=== PATIENT | female | born 1935 | race Caucasian/White ===

== ENCOUNTER 2016-12-03 09:33 | Inpatient (IN) | payer MEDICARE ==
[2016-11-22 11:04] VITALS: BP 138/78
--- NOTE | 2016-11-28 11:29 | HPE ---
DATE OF ADMISSION: 12/03/2016 CHIEF COMPLAINT: Right knee pain and stiffness. HISTORY: Lizzy is a pleasant 81-year-old female with progressively worsening right knee pain and stiffness. She has failed to improve with conservative management. She has elected for surgery for her continued symptoms with weight bearing activities and activities of daily living. She has consented for a right total knee arthroplasty by Dr. Jacques. Medical optimization pending with Tiffany Rico and is not available for review today. CURRENT MEDICATIONS: - vitamin D3 2000 mg daily - Klor-Con m20, CR 20 daily - Coumadin 5 mg daily - vitamin C 500 mg daily - magnesium 250 mg daily - arthritis medication twice daily, not specified - levothyroxine 75 mcg daily ALLERGIES: PENICILLIN, AVELOX, CHEMOTHERAPY DRUGS, unspecified. MEDICAL HISTORY: History of pulmonary embolism. Hypothyroid. SURGICAL HISTORY: Bilateral cataracts. Total hysterectomy. Appendectomy. REVIEW OF SYSTEMS: Patient denies fevers, chills, nausea, vomiting or diarrhea. She denies chest pain, shortness of breath or cough. No recent upper respiratory or urinary tract infection symptoms but is, however, starting treatment for urinary tract infection. She does have pain in the right knee with weight bearing activities and activities of daily living. EXAMINATION: Well nourished, well developed female in no apparent distress. She does walk with a limp favoring the right side using a cane. Skin to the right knee is without erythema, edema or ecchymosis. She does have some tenderness along the bilateral joint lines. There is no hip irritability elicited with range of motion. Her calf is soft, nontender to palpation. Neck supple without lymphadenopathy or jugular venous distention (JVD). There are no carotid bruits noted. Lungs: Clear to auscultation bilaterally without rales or wheezes. Heart: Regular rate and rhythm. Abdomen: Bowel sounds are present. Abdomen is soft and nontender to palpation. VITAL SIGNS: Height 5 feet 3 inches, weight 172 pounds, temperature 98.5, blood pressure 115/70, heart rate 72. LABORATORY DATA: Chest x-ray is an essentially negative study. EKG shows sinus bradycardia with arrhythmia. Moderate intraventricular conduction delay. Complete blood count: WBC slightly elevated at 12.6. Red blood cell 4.17. Hemoglobin 13.1, hematocrit 39.7, platelet count slightly decreased at 103. Erythrocyte sedimentation rate 12. Prothrombin time slightly elevated at 21.4. INR 1.85. Urinalysis significant for only turbid appearance, 3+ leukocyte esterase, too numerous to count white blood cells, red blood cells 45 and 3+ bacteria. She does have a urine culture positive for Serratia marcescens and has been treated by her primary auto care center manager per protocol. Her nasal culture, normal yann present. Comprehensive metabolic profile: Fasting glucose 89, BUN slightly elevated at 19, creatinine slightly elevated at 1.06. Glomerular filtration rate 53.1. Sodium 142, potassium 4.2, chloride 104, carbon dioxide 31, anion gap slightly decreased at 7, calcium 8.8. AST slightly elevated at 39, ALT 62, alkaline phosphatase 81, total bilirubin 0.6, total protein slightly decreased at 6.0, albumin 3.8, albumin globulin ratio 1.73. DIAGNOSIS: Symptomatic osteoarthritis of the right knee. PLAN: Patient has consented for a right total knee arthroplasty by Dr. Jacques. She will continue her Levaquin for her urinary tract infection per her primary auto care center manager's recommendations. MICHELLE
[~2016-12-03] VITALS: Ht 160 cm; Wt 79.8 kg
[2016-12-03] VITALS (7 sets, daily range): BP systolic 116–179; BP diastolic 61–87
[~2016-12-03 09:33] MED LIST: /MOXI40TA; /WARF5TA; ACET650T2 PO; ACYC400T; BACT800T; CARA1TAB2 PO; COLA100C PO; COMPAZINE; COUM1TAB14 PO; COUM1TAB17 PO; COUM2.5T11 PO; DULC5TAB PO; FLOM5CAP PO; FLUC10TA; IMBR1CAP PO; K PHOS NEUTRAL PO; K-TA1TAB PO; LASI40TA PO; LEVA500T; LEVO100T7; LEVO75TA4 PO; LOPR50TA PO; MAGN250T9 PO; MICR10CA PO; MOM30SS PO; MYCOSTATIN TOP; PERC5TAB6 PO; POTA20TA PO; PROT1TAB2 PO; ROCE1INJ4 IV; Robitussin AC PO; SENO8.6T10 PO; TYLE325T5 PO; VITA-130 PO; VITA200016 PO; VITA200038 PO; VITMTA PO; WARF-18 PO; WARF-23 PO; XOPE1.252 INH; ZITHTAB PO; ZOFR4SOL PO; ZOVI200C; megace PO
[2016-12-03] MEDS ORDERED: LR 1,000 ML IV SCH ×2 (10:00→14:00)
[2016-12-03] MEDS ORDERED: VANCOMYCIN HCL 1,000 MG, VIAL MATE ADAPTER 1 EACH in D5W 250 ML IV ONE ×2 (10:15→22:00)
[2016-12-03] MEDS ORDERED: CLINDAMYCIN 600 MG in APPROPRIATE DILUENT 1 EA IV ONE (10:15)
[2016-12-03 10:16] LABS: INR 1.03
[2016-12-03] MEDS ORDERED: LOVE0.6I2 SC (10:19)
[2016-12-03] MEDS ORDERED: fentaNYL 100 MCG/2 ML INJECTION (J3010) As Ordered ONE ×3 (10:50→12:07)
[2016-12-03] MEDS ORDERED: MIDAZOLAM INJ 2 MG/2 ML VIAL (J2250) As Ordered ONE ×2 (10:50→12:07)
[2016-12-03] MEDS ORDERED: TRANEXAMIC ACID 100 MG/ML 10ML VIAL As Ordered ONE (10:54)
[2016-12-03] MEDS ORDERED: BUPIVACAINE HCL 0.5% 10 ML VIAL As Ordered ONE (10:55)
[2016-12-03] MEDS ORDERED: EPINEPHrine INJ 1 MG/ML 1ML VIAL/AMP As Ordered ONE (10:55)
[2016-12-03] MEDS ORDERED: CLINDAMYCIN INJ 900MG/6ML VIAL As Ordered ONE (10:55)
[2016-12-03] MEDS ORDERED: BUPIVACAINE HCL 0.25% 30 ML VIAL As Ordered ONE (10:55)
[2016-12-03] MEDS ORDERED: MIDAZOLAM INJ 2 MG/2 ML VIAL (J2250) IV PRN (11:45)
[2016-12-03] MEDS ORDERED: fentaNYL 100 MCG/2 ML INJECTION (J3010) IV PRN ×2 (11:45→14:00)
[2016-12-03] MEDS ORDERED: ETOMIDATE INJ 20MG/10ML VIAL As Ordered ONE (12:07)
[2016-12-03] MEDS ORDERED: ROCURONIUM BROMIDE 50 MG/5 ML VIAL As Ordered ONE (12:07)
[2016-12-03] MEDS ORDERED: LIDOCAINE PRES-FREE 2% 10ML AMP As Ordered ONE (12:07)
[2016-12-03] MEDS ORDERED: PROPOFOL 200 MG/20 ML VIAL As Ordered ONE ×2 (12:07→12:08)
[2016-12-03] MEDS ORDERED: LIDOCAINE 2% INJ 100 MG/5 ML SDV (FOR ANES.) As Ordered ONE (12:08)
[2016-12-03] MEDS ORDERED: fentaNYL 100 MCG/2 ML INJECTION (J3010) XX ONE (12:22)
[2016-12-03] MEDS ORDERED: EPINEPHrine INJ 1 MG/ML 1ML VIAL/AMP XX ONE (12:22)
[2016-12-03] MEDS ORDERED: CLINDAMYCIN INJ 900MG/6ML VIAL IR ONE (12:22)
[2016-12-03] MEDS ORDERED: TRANEXAMIC ACID 100 MG/ML 10ML VIAL XX ONE (12:22)
[2016-12-03] MEDS ORDERED: BUPIVACAINE HCL 0.5% 10 ML VIAL XX ONE (12:22)
[2016-12-03] MEDS ORDERED: BUPIVACAINE HCL 0.25% 30 ML VIAL XX ONE (12:22)
[2016-12-03] MEDS ORDERED: MORPHINE PCA 1MG/ML 100ML CADD As Ordered ONE (13:48)
[2016-12-03] MEDS ORDERED: NALOXONE INJ 0.4 MG/1 ML VIAL (J2310) IV PRN (14:00)
[2016-12-03] MEDS ORDERED: diphenhydrAMINE INJ 50MG/ML VIAL (J1200) IV PRN (14:00)
[2016-12-03] MEDS ORDERED: EPIDURAL/PCA KEYS XX PRN (14:00)
[2016-12-03] MEDS ORDERED: MORPHINE PCA 1MG/ML 100ML CADD IV PRN (14:00)
[2016-12-03] MEDS ORDERED: METOCLOPRAMIDE INJ 10MG/2ML VIAL (J2765) IV PRN (14:00)
[2016-12-03] MEDS ORDERED: PATIENT IS CURRENTLY ON AN ON-Q PAIN BUSTER PAIN RELIEF SYSTEM XX SCH (14:00)
[2016-12-03] MEDS ORDERED: ONDANSETRON 4MG/2ML VIAL (J2405) IV PRN ×2 (14:00)
[2016-12-03] MEDS ORDERED: NALBUPHINE HCL 10 MG/ML AMP (J2300) IV PRN (14:00)
[2016-12-03] MEDS ORDERED: PERCOCET 5MG/325MG TAB PO PRN (14:00)
[2016-12-03] MEDS ORDERED: ACETAMINOPHEN TAB 650MG DOSE (2X325MG) PO PRN (15:30)
[2016-12-03] MEDS ORDERED: FLEET ENEMA PR PRN (15:30)
[2016-12-03] MEDS: NS 0.45% 1,000 ML IV SCH (15:30)
--- NOTE | 2016-12-03 15:39 | HPEPDOC ---
Medical History and Physical Date of Admission Dec 03, 2016 at 09:33 History and Physical HOSPITALIST CONSULT NOTE Date of consult: 12/03/2016 Referring Provider: Dr. Jacques Reason for consult: Management of chronic medical issues HPI: 81-year-old female with history of pulmonary embolism, hypothyroidism, CLL , anxiety who underwent right total knee replacement with Dr. Jacques today. She is seen postoperatively in the recovery room. She states she feels well and has no complaints. When asked about the details of her prior PE, she states that she has only ever had one blood clot, and it occurred approximately 6 years ago. She states that the doctors did not tell her why this occurred, but she has been on Coumadin for ever since. Past medical history: History of pulmonary embolism, hypothyroidism, CLL, anxiety Past surgical history: Bilateral cataracts, total abdominal hysterectomy, appendectomy Family history: The patient denies any health problems in her family and states that everyone is healthy. Social history: The patient currently lives with her . She has never smoked and denies any drug use. Allergies: Doxycycline, mouse protein, moxifloxacin, Ofatumumab, rituximab, penicillins Review of systems: General: Negative for fever and chills Eyes:. Negative for vision changes and ocular discharge ENT: Negative for sore throat and nose bleed Cardiovascular: Negative for chest pain and palpitations Respiratory: Negative for cough and shortness of breath GI: Negative for nausea, vomiting, diarrhea, constipation Musculoskeletal: Negative for neck and back pain Skin: Negative for rash Neuro:. Negative for Headache, dizziness, numbness, tingling Psych: Negative for depression and suicidal ideation Endocrine: Negative for polyuria : Negative for dysuria Heme: Negative for bruising Home meds: See below Physical exam: Vital signs: Blood pressure 118/64, HR 78, temperature 97.8, O2 sat 97% on 2 L, RR 16 Gen.: awake, alert, no acute distress Eyes: Extraocular movements intact, normal sclera ENT: Moist mucous membranes Cardiovascular: RRR, no murmurs rubs or gallops Lungs: clear to auscultation bilaterally, no rales, rhonchi, or wheeze Abdomen: Soft, NT/ND, normal BS Extremities: No peripheral edema, intact pedal pulses bilaterally Neuro: alert and oriented 3, normal speech, no focal deficits Psych: Normal mood with congruent affect Labs and radiology: INR 1.03 Assessment and plan: 81-year-old female with history of pulmonary embolism, hypothyroidism, CLL, anxiety who underwent right total knee replacement with Dr. Jacques today. We have been consulted for medical management of chronic medical problems. 1. Right total knee repair placement: Management per her primary team 2. History of pulmonary embolism: The patient has been on Coumadin for this. I recommended that the Coumadin be resumed as soon as her surgical team feels is safe. We'll check daily INRs. 3. Hypothyroidism: Continue home Synthroid. 4. CLL: Continue home imbruvica. We do not have this on formulary, but the patient may take her home supply. DVT prophylaxis: As per primary team Thank you very much for this consultation. We'll continue to follow along with you. Dr. Christianson will assume her care tomorrow morning. Vital Signs see above Laboratory Data Labs 24H Laboratory Tests 2 12/03/16 09:58: Prothromb Time International Ratio 1.03, Prothrombin Time 13.6 Home Medications Scheduled Acetaminophen (Acetaminophen ER) 650 Mg Tab 2 TABS PO DAILY Ascorbic Acid (Vitamin C) 500 Mg Tab 500 MG PO QAM Base (Imbruvica) 140 Mg Cap 140 MG PO QAM Cholecalciferol (Vitamin D-3) 2,000 Unit Tab 4,000 UNIT PO QAM Enoxaparin (Lovenox) 80 Mg/0.8 Ml Syr 80 MG SC BID Levothyroxine Sodium (Synthroid) 75 Mcg Tab 75 MCG PO QAM Magnesium Oxide (Magnesium) 250 Mg Tab 250 MG PO DAILY Multivitamins *[facility] STOCKED* (Thera M Plus *[facility] STOCKED*) 1 Tab Tab 1 TAB PO QAM Potassium Chloride (Klor-Con M20) 20 Meq Tabcr 20 MEQ PO QAM Warfarin Sod (Warfarin Sodium) 5 Mg Tab 5 MG PO 2XW tues, thurs, sat, sun Warfarin Sod (Coumadin) 4 Mg Tab 4 MG PO 5XW Allergies Coded Allergies: Moxifloxacin (Unverified Allergy, Severe, shakes; anxiety, 11/22/16) Penicillins (Verified Allergy, Intermediate, HIVES, 02/28/13) Penicillins Cross Reactors (Verified Allergy, Intermediate, HIVES, 02/28/13) Doxycycline (Unverified Allergy, Unknown, 01/15/16) Mouse Protein (Unverified Allergy, Unknown, 01/15/16) Ofatumumab (Unverified Allergy, Unknown, 01/15/16) Rituximab (Unverified Allergy, Unknown, 01/15/16) CRYSTAL BREWER Dec 03, 2016 15:39
[2016-12-03] MEDS ORDERED: IMBR1CAP PO (16:10)
[2016-12-03] MEDS ORDERED: WARFARIN SOD 5 MG TAB PO SCH (17:00)
--- NOTE | 2016-12-03 19:10 | RO ---
DATE OF PROCEDURE: 12/03/2016 PREPROCEDURE DIAGNOSIS: Right valgus osteoarthritis. POSTPROCEDURE DIAGNOSIS: Right valgus osteoarthritis. PROCEDURE: Right total knee replacement. SURGEON: Jeremy Jacques MD CODE AND TEST CLERK: Isael Goldman ANESTHESIA: HISTORY: The patient is an 81-year-old female with increasing deformity and pain in her right knee. The patient presents for elective total knee replacement. The patient has a history of pulmonary embolus. She has been off her Coumadin and on Lovenox bridging for that. FINDINGS AT SURGERY: A #4 narrow posterior stabilized PFC knee, a #3 fixed bearing tibia with an 8 mm spacer, a 32 mm button. Tourniquet time 53 minutes. No intraoperative complications. Mr. Goldman assisted by manipulating the leg and retracting vital structures in order to expedite the surgery. PROCEDURE: After adequate spinal anesthesia, the patient received intravenous (IV) antibiotics. The Light catheter was placed. Right leg was prepped and draped. Tourniquet inflated to 300 mmHg. A straight anterior incision made. Median parapatellar arthrotomy. Minimal dissection around the medial collateral ligament. The intermedullary canal was opened and a 5 degree valgus 10 mm cut made by Mr. Goldman under my supervision. Then the rest of the femoral cuts were made by myself anterior cruciate ligaments (ACL), posterior cruciate ligament (PCL) were excised and the tibia was exposed. Once the tibial cut was made the posterior osteophytes were removed. The medial and lateral menisci were removed and sizing guides were utilized. Following this the femoral notch was cut. The femoral component was applied with good fit and then the tibial tray. Rotation was checked and marked. The tibial preparation was completed. The patella was prepared. No lateral release was needed. Then all trial components were removed. Mr. Goldman was excused to the back table mixed methacrylate under vacuum. Once he returned to the table, he retracted tissue so that the tibial component could be cemented. Excess cement was removed. The femoral component was applied. The plastic was installed. Knee placed in full extension and the patella was cemented. During the drying time the excess cement was removed. The area was thoroughly irrigated. TXA was placed in the wound for post-operative hemostasis then a catheter was threaded for the PainBuster for post-operative analgesia. The median parapatellar arthrotomy was closed with heavy PDS suture. Tenosynovium closed with #2-0 PDS, same for subcu and alfie for skin. The tourniquet was deflated. The PainBuster was primed with 10 mL of Marcaine with fentanyl. Then the dry dressing was applied. The patient transferred to recovery room breathing spontaneously having tolerated procedure well.
[2016-12-03] MEDS: **UNRESOLVED NON-FORMULARY MED ORDER XX SCH ×2 (21:51→22:21)
[2016-12-04] MEDS ORDERED: ENOXAPARIN 30 MG/0.3 ML SYR (J1650) SC ONE (01:00)
[2016-12-04] MEDS: NS 0.45% 1,000 ML IV SCH (01:31)
[2016-12-04 03:30] VITALS: BP 123/65
[2016-12-04 06:00] VITALS: BP 119/71
[2016-12-04] MEDS: LEVOTHYROXINE 0.075 MG TAB (75 MCG) PO SCH (06:07)
[2016-12-04 06:57] LABS: INR 1.11
[2016-12-04 07:07] LABS: DIFF SLIDE NUMBER 89; MEAN CORPUSCULAR HEMOGLOBIN 32.4 pg (27.0-33.0); MEAN CORPUSCULAR HGB CONC 33.8 g/dl (32.0-36.5); MEAN CORPUSCULAR VOLUME 95.9 fl (80.0-96.0); RED CELL DISTRIBUTION WIDTH 13.4 % (11.5-14.5)
[2016-12-04 07:11] LABS: ANION GAP 8 MEQ/L (8-16); BLOOD UREA NITROGEN 18 MG/DL (7-18); CALCIUM LEVEL 8.1 MG/DL (8.8-10.2); CARBON DIOXIDE LEVEL 25 MEQ/L (21-32); CHLORIDE LEVEL 102 MEQ/L (98-107); CREATININE FOR GFR 0.92 MG/DL (0.55-1.02); GLOMERULAR FILTRATION RATE > 60.0 (>32); GLUCOSE, FASTING 128 MG/DL (83-110); POTASSIUM SERUM 4.7 MEQ/L (3.5-5.1); SODIUM LEVEL 135 MEQ/L (136-145)
[2016-12-04 07:22] LABS: PLATELET COUNT, AUTOMATED 98 k/mm3 (150-450); WHITE BLOOD COUNT 27.7 K/mm3 (4.0-10.0)
[2016-12-04 07:33] LABS: BANDS 3 % (< 11)
[2016-12-04 07:34] LABS: SMUDGE CELLS 2+
[2016-12-04] MEDS ORDERED: NON-FORMULARY 1 EA EA PO SCH (09:00)
[2016-12-04] MEDS ORDERED: dexameTHASONE 10 MG/1 ML VIAL PRES.FREE (J1100) ONE (09:07)
[2016-12-04] MEDS ORDERED: ROPIvacaine 0.5% 30 ML INJECTION (J2795) ONE (09:07)
[2016-12-04] MEDS ORDERED: LIDOCAINE 1% MDV 20ML VIAL ONE (09:07)
--- NOTE | 2016-12-04 09:18 | REP ---
Clinical: Status post arthroplasty. Technique: AP and cross-table lateral views. Findings: The patient is status post right knee replacement with normal positioning and appearance to the femoral and tibial components. Overlying postsurgical changes appreciated. Impression: Satisfactory right knee replacement radiographs. Signed by Gareth Moore MD 12/04/2016 09:10 A
[2016-12-04] MEDS: MOM 30ML SUSPENSION UDC PO SCH (09:40)
[2016-12-04] MEDS: MIRALAX *UNIT DOSE* 17GM PACKET PO SCH (09:40)
[2016-12-04] MEDS: SENOKOT S TAB PO SCH ×2 (09:40→20:06)
[2016-12-04] MEDS: PERCOCET 5MG/325MG TAB PO PRN ×4 (09:41→20:07)
[2016-12-04 10:00] VITALS: BP 122/58
[2016-12-04 14:00] VITALS: BP 116/57
[2016-12-04] MEDS: ONDANSETRON 4 MG TAB (S0181) PO PRN (14:31)
[2016-12-04 16:02] LABS: REASON FOR REVIEW COMPREHENSIVE REVIEW
[2016-12-04] MEDS ORDERED: WARFARIN SOD 5 MG TAB PO ONE (17:00)
[2016-12-04 18:00] VITALS: BP 124/72
[2016-12-04 22:00] VITALS: BP 110/53
[2016-12-04] MEDS: **UNRESOLVED NON-FORMULARY MED ORDER XX SCH (23:04)
[2016-12-05] MEDS: PERCOCET 5MG/325MG TAB PO PRN ×4 (03:46→18:22)
[2016-12-05] MEDS: LEVOTHYROXINE 0.075 MG TAB (75 MCG) PO SCH (05:52)
[2016-12-05 06:00] VITALS: BP 129/61
[2016-12-05 07:05] LABS: INR 1.45
[2016-12-05 07:08] LABS: DIFF SLIDE NUMBER 49; MEAN CORPUSCULAR HGB CONC 33.8 g/dl (32.0-36.5); MEAN CORPUSCULAR VOLUME 94.5 fl (80.0-96.0); RED CELL DISTRIBUTION WIDTH 13.7 % (11.5-14.5); WHITE BLOOD COUNT 11.5 K/mm3 (4.0-10.0)
[2016-12-05 07:09] LABS: PLATELET COUNT, AUTOMATED 71 k/mm3 (150-450)
[2016-12-05 07:20] LABS: CALCIUM LEVEL 7.9 MG/DL (8.8-10.2); CREATININE FOR GFR 1.13 MG/DL (0.55-1.02); GLOMERULAR FILTRATION RATE 49.3 (>32); MAGNESIUM LEVEL 2.2 MG/DL (1.8-2.4); POTASSIUM SERUM 4.1 MEQ/L (3.5-5.1)
[2016-12-05 07:36] LABS: BANDS 1 % (< 11); EOSINOPHILS 2 % (0-5)
[2016-12-05 07:38] LABS: SMUDGE CELLS 2+
[2016-12-05] MEDS: MOM 30ML SUSPENSION UDC PO SCH (08:42)
[2016-12-05] MEDS: SENOKOT S TAB PO SCH ×2 (08:43→20:29)
[2016-12-05] MEDS: ONDANSETRON 4 MG TAB (S0181) PO PRN (08:43)
[2016-12-05] MEDS: MIRALAX *UNIT DOSE* 17GM PACKET PO SCH (08:43)
[2016-12-05 14:00] VITALS: BP 122/68
[2016-12-05] MEDS ORDERED: WARFARIN SOD 7.5 MG TAB PO ONE (17:00)
[2016-12-05 22:00] VITALS: BP 130/60
[2016-12-05] MEDS: **UNRESOLVED NON-FORMULARY MED ORDER XX SCH (23:13)
[2016-12-06] MEDS: PERCOCET 5MG/325MG TAB PO PRN ×4 (00:17→15:16)
[2016-12-06 06:00] VITALS: BP 150/65
[2016-12-06] MEDS: LEVOTHYROXINE 0.075 MG TAB (75 MCG) PO SCH (06:18)
[2016-12-06 06:50] LABS: INR 1.68
[2016-12-06 06:55] LABS: DIFF SLIDE NUMBER 51; MEAN CORPUSCULAR HEMOGLOBIN 31.2 pg (27.0-33.0); MEAN CORPUSCULAR HGB CONC 32.7 g/dl (32.0-36.5); MEAN CORPUSCULAR VOLUME 95.3 fl (80.0-96.0); RED CELL DISTRIBUTION WIDTH 14.7 % (11.5-14.5)
[2016-12-06 06:59] LABS: PLATELET COUNT, AUTOMATED 89 k/mm3 (150-450); WHITE BLOOD COUNT 16.4 K/mm3 (4.0-10.0)
[2016-12-06 07:04] LABS: CALCIUM LEVEL 8.3 MG/DL (8.8-10.2); CREATININE FOR GFR 1.05 MG/DL (0.55-1.02); GLOMERULAR FILTRATION RATE 53.7 (>32); MAGNESIUM LEVEL 2.3 MG/DL (1.8-2.4); POTASSIUM SERUM 4.6 MEQ/L (3.5-5.1)
[2016-12-06 07:16] LABS: EOSINOPHILS 2 % (0-5)
[2016-12-06] MEDS ORDERED: MAGNESIUM CITRATE 300 ML BTL PO ONE (07:30)
[2016-12-06] MEDS ORDERED: PERC5TAB6 PO (08:27)
[2016-12-06] MEDS ORDERED: MAGNESIUM CITRATE 300 ML BTL PO PRN (10:00)
[2016-12-06] MEDS: SENOKOT S TAB PO SCH (10:19)
[2016-12-06] MEDS: MIRALAX *UNIT DOSE* 17GM PACKET PO SCH (10:20)
[2016-12-06] MEDS: MOM 30ML SUSPENSION UDC PO SCH (10:20)
== END 2016-12-06 15:35 | disposition home health service (06) | DRG 470 ==
LOC: M OR 09:33 → M MS5PR 14:45
PROVIDERS: ADMIT Orthopaedic Surgery; ATTEND Orthopaedic Surgery
PROC: 0SRC0J9 Replacement of Right Knee Joint with Synthetic Substitute, Cemented, Open Approach (ICD-10-PCS; principal; 2016-12-03 11:00)
DX: M17.11 Unilateral primary osteoarthritis, right knee (principal); C91.10 Chronic lymphocytic leukemia of B-cell type not having achieved remission; Z88.0 Allergy status to penicillin; E03.9 Hypothyroidism, unspecified; Z86.711 Personal history of pulmonary embolism; Z79.899 Other long term (current) drug therapy; Z79.01 Long term (current) use of anticoagulants; Z88.8 Allergy status to other drugs, medicaments and biological substances

== ENCOUNTER → 2016-12-10 | Outpatient (REF) | payer MEDICARE ==
[~2016-12-10] MED LIST changes: +LOPR1TAB6 PO; -LOPR50TA PO; +LOVE0.6I2 SC; +OXYC1TAB23 PO
[2016-12-10 15:05] LABS: INR 2.84
== END ==
LOC: M SHH 14:19
PROVIDERS: ATTEND Orthopaedic Surgery
DX: Z01.818 Encounter for other preprocedural examination (principal); M17.11 Unilateral primary osteoarthritis, right knee; Z79.01 Long term (current) use of anticoagulants

== ENCOUNTER 2016-12-12 11:13 | Inpatient (IN) | payer MEDICARE ==
[~2016-12-12] VITALS: Ht 157.5 cm; Wt 82.5 kg
[~2016-12-12 11:13] MED LIST changes: -OXYC1TAB23 PO
[2016-12-12] MEDS ORDERED: ONDANSETRON 4MG/2ML VIAL (J2405) As Ordered ONE (12:12)
[2016-12-12] MEDS ORDERED: MORPHINE 4 MG/ML 1ML SYRINGE As Ordered ONE (12:12)
[2016-12-12 12:16] LABS: DIFF SLIDE NUMBER 226; MEAN CORPUSCULAR HEMOGLOBIN 30.4 pg (27.0-33.0); MEAN CORPUSCULAR HGB CONC 31.7 g/dl (32.0-36.5); MEAN CORPUSCULAR VOLUME 95.9 fl (80.0-96.0); PLATELET COUNT, AUTOMATED 251 k/mm3 (150-450); RED CELL DISTRIBUTION WIDTH 16.1 % (11.5-14.5)
[2016-12-12 12:22] LABS: INR 3.51
[2016-12-12 12:29] LABS: WHITE BLOOD COUNT 45.3 K/mm3 (4.0-10.0)
[2016-12-12 12:33] LABS: CREATININE FOR GFR 1.26 MG/DL (0.55-1.02); GLOMERULAR FILTRATION RATE 43.5 (>32); POTASSIUM SERUM 5.1 MEQ/L (3.5-5.1)
[2016-12-12 12:40] LABS: BANDS 5 % (< 11); EOSINOPHILS 4 % (0-5); POIKILOCYTOSIS 1+; POLYCHROMASIA 1+
[2016-12-12 12:41] LABS: SMUDGE CELLS 2+
[2016-12-12 12:57] LABS: ERYTHROCYTE SEDIMENTATION RATE 51 mm/hr (0-30)
--- NOTE | 2016-12-12 13:50 | REP ---
RIGHT LOWER EXTREMITY DUPLEX VENOUS ULTRASOUND: HISTORY: Patient status post right knee replacement surgery 9 days ago with deformity and swelling. Question venous thrombosis. FINDINGS: There is occlusive thrombosis of the right popliteal vein with echogenic material and lack of compressibility and lack of Doppler flow. The femoral vein and common femoral vein and greater saphenous vein segments are anechoic and compressible and appear patent. There is a fluid collection in the distal five posteriorly measuring 10.7 x 2.8 x 6.4 cm. This is posterior to the distal femur. IMPRESSION: 1. There is occlusive deep venous thrombosis involving the right popliteal vein. 2. There is a 10 cm fluid collection above the level of the knee and posterior to the distal femur consistent with hematoma. Signed by Caden Steel MD 12/12/2016 08:12 P
[2016-12-12] MEDS ORDERED: OXYC1TAB23 PO (14:13)
--- NOTE | 2016-12-12 14:20 | HPEPDOC ---
Medical History and Physical Date of Admission 12/12/16 History and Physical ATTENDING: Dr. Hoover PCP: Dr Torres CC: RLE edema and pain HPI: 81yoF with a past medical history significant for CLL, PE, hypothyroid, who is S/P Rt TKA 12/03/16 who states she has been developing increasing pain and edema in the RLE from the thigh to the foot since Saturday. Today she called EMS related to increasing pain and edema amd came to ED for evaluation. Denies any fevers, chills, weakness, fatigue, AGUILAR, CP, SOB, cough, palpitations, abdominal pain, N/V/D or changes in bowel or bladder habits. Upon presentation to the hospital the patient was found to have popliteal vein DVT and hematoma at level of the knee, thus the hospitalist team was consulted. PMHx: PE- on coumadin anticoagulation managed as per PCP- off Lovenox Saturday12/10/16 CLL- managed as per Dr Karimi [facility] Hypothyroidism hypokalemia hypomagnesemia PSHX: hysterectomy appendectomy B/L cataract Rt TKA- 12/03/16 SOCHX: Resides in: [place] Marital Status: Kids: 2 Employment: Retired [employer] Tobacco use: denies ETOH: denies Illicit Drugs: Denies Recent travel: denies Advanced directives: none FAMHX: Mother: CAD Father: Unknown Siblings: son related to Fall, dtr unknown. Unexpected deaths due to medical reasons: None. ROS: As noted in HPI, otherwise 11pt ROS of systems reviewed and unremarkable PE: GEN: 81yoF, appears stated age. Well-nourished, well developed. No acute distress. Alert and oriented x 3. Pleasant, interactive. HEENT: Normocephalic, atraumatic. Pupils are equal, round, and reactive to light. Extraocular movements are intact. No nystagmus appreciated. Sclera are nonicteric. Conjunctiva without injection. Nose midline. Nasal turbinates without bogginess. EACs both patent BL. TMs both visualized and lam with good cone of light, no bulging or erythema. No facial asymmetry. Moist mucous membranes. Dentition fair. Pharynx pink and moist, no cobblestoning. Neck supple , trachea midline. No lymphadenopathy or thyromegaly appreciated. CHEST: Regular rate and rhythm, +S1, +S2 LUNGS: Clear to auscultation bilaterally. No wheezes, rales, or rhonchi. Breathing appears symmetric and easy. Patient is speaking in full sentences. No accessory muscle use. ABD: Round, soft, non-tender, non-distended. +Bowel sounds throughout. No rebound or guarding. No costovertebral angle tenderness. EXT: Pulses 2+ bilaterally dorsalis pedis and radial. RLE with small surgical dressing intact. Diffuse edema present from thigh to pedal area. Mild TTP. SKIN: Bland, dry, warm. Capillary refill <2sec. No rashes. NEURO: Alert and oriented x 3. Cranial nerves III-XII are intact. No focal deficits appreciated. CXR: pending LE U/S 1. There is occlusive deep venous thrombosis involving the right popliteal vein. 2. There is a 10 cm fluid collection above the level of the knee and posterior to the distal femur consistent with hematoma. A&P: 81yoF with a past medical history significant for CLL, PE, hypothyroid, who is S/P Rt TKA 12/03/16 who states she has been developing increasing pain and edema in the RLE from the thigh to the foot since Saturday. Today she called EMS related to increasing pain and edema amd came to ED for evaluation. The patient will be admitted to PCU for at least [address] Hoover's service. Pt is discussed with Dr Amado. 1. RLE DVT. INR currently supra therapeutic. Monitor daily INR. 2. RLE Hematoma. Monitor. Dr Jacques to follow. Coumadin on hold. 3. S/P Rt TKA. Dr Jacques consulted and is aware, will follow. 4. CLL. Follows with Dr Karimi at [facility]. Monitor CBCd. 5. H/O PE. INR is currently supra therapeutic. Hold Coumadin for now, recheck INR in AM. 6. Hypothyroidism . Cont supplement. 7. Hypokalemia. Po supplement on hold, K 5.1. Recheck in AM. 8. Hypomagnesemia. PO supplement. Check Mag level. DVT prophylaxis. INR is currently supra therapeutic. The patient is a Full Code. Vital Signs 152/66 76 18 98.5 96RA Laboratory Data Labs 24H Laboratory Tests 2 12/12/16 12:06: Activated Partial Thromboplast Time 34.3, Anion Gap 11, Atypical Lymphocytes 12H , Band Neutrophils 5, C-Reactive Protein, Quantitative 3.13H, Blood Urea Nitrogen 28H, Creatinine 1.26H, Sodium Level 132L, Potassium Level 5.1, Chloride Level 98, Carbon Dioxide Level 23, Calcium Level 8.0L, Eosinophils ( Manual) 4, Erythrocyte Sedimentation Rate 51H, Glomerular Filtration Rate 43.5, Lymphocytes (Manual) 36, Metamyelocytes 2H, Myelocytes 6H, Neutrophils 35, Platelet Estimate NORMAL, Poikilocytosis 1+, Polychromasia 1+, Prothromb Time International Ratio 3.51, Prothrombin Time 35.2H, Smudge Cells 2+ CBC/BMP Laboratory Tests 12/12/16 12:06 Calcium Level 8.0 L, Red Blood Count 2.48 L, Mean Corpuscular Volume 95.9, Mean Corpuscular Hemoglobin 30.4, Mean Corpuscular Hemoglobin Concent 31.7 L, Red Cell Distribution Width 16.1 H Home Medications Scheduled Ascorbic Acid (Vitamin C) 500 Mg Tab 500 MG PO DAILY Base (Imbruvica) 140 Mg Cap 140 MG PO DAILY OFF UNTIL 12/15/16 Cholecalciferol (Vitamin D-3) 2,000 Unit Tab 4,000 UNIT PO DAILY Levothyroxine Sodium (Synthroid) 75 Mcg Tab 75 MCG PO DAILY Magnesium Oxide (Magnesium) 250 Mg Tab 250 MG PO DAILY Multivitamins *[facility] STOCKED* (Thera M Plus *[facility] STOCKED*) 1 Tab Tab 1 TAB PO DAILY Potassium Chloride (Klor-Con M20) 20 Meq Tabcr 20 MEQ PO DAILY Warfarin Sod (Warfarin Sodium) 5 Mg Tab 5 MG PO 2XW QPM: & SAT Warfarin Sod (Coumadin) 4 Mg Tab 4 MG PO 5XW QPM: SUN, MON, , SAT, SAT Scheduled PRN Oxycodone/Acetaminophen (Oxycodone/Acetaminophen 5-325 mg) 1 Tab Tab 2 TAB PO Q6H PRN PRN PAIN Allergies Coded Allergies: Moxifloxacin (Unverified Allergy, Severe, shakes; anxiety, 11/22/16) Penicillins (Verified Allergy, Intermediate, HIVES, 02/28/13) Penicillins Cross Reactors (Verified Allergy, Intermediate, HIVES, 02/28/13) Doxycycline (Unverified Allergy, Unknown, 01/15/16) Mouse Protein (Unverified Allergy, Unknown, 01/15/16) Ofatumumab (Unverified Allergy, Unknown, 01/15/16) Rituximab (Unverified Allergy, Unknown, 01/15/16) Rocío Hua Dec 12, 2016 14:20
[2016-12-12] MEDS ORDERED: ACETAMINOPHEN TAB 650MG DOSE (2X325MG) PO PRN (14:30)
[2016-12-12] MEDS ORDERED: ONDANSETRON 4MG/2ML VIAL (J2405) IV PRN (14:30)
[2016-12-12 14:54] LABS: MAGNESIUM LEVEL 2.7 MG/DL (1.8-2.4)
--- NOTE | 2016-12-12 15:06 | REP ---
AP PORTABLE CHEST: 12/12/2016 Re-dictation. COMPARISON: Comparison made with prior chest radiograph 11/22/2016, CT chest, 01/15/2016, chest radiograph 08/26/2014. The cardiac silhouette is of size. There is minor tortuosity within the thoracic aorta. Fibrotic scarring and bronchiectatic changes are seen within the right lower lobe. Small spiculated density in right lower lung field represent interval change, most compatible with atelectasis or scarring. The left lung is clear. Bones and soft tissues within normal limits. IMPRESSION: Right basilar fibrotic scarring and mild bronchiectatic changes. Additionally, small spiculated density in the right lower lung field is noted, for which short interval followup chest radiograph is recommended to insure resolution or CT of the chest which can be performed without contrast. Case discussed with Dr. Cameron in ED on 12/12/16. MICHELLE
[2016-12-12] MEDS ORDERED: PERCOCET 5MG/325MG TAB As Ordered ONE (15:39)
--- NOTE | 2016-12-12 15:43 | EDDOCDS ---
Nurse's Notes [facility] Name: Lizzy Bray Age: 81 yrs Sex: Female : 1935 Arrival Date: 12/12/2016 Time: 11:13 Bed 6 Private MD: Tiffany Muñiz ANP Diagnosis: Acute embolism and thrombosis of other specified deep vein of right lower extremity;Postprocedural hemorrhage and hematoma of a musculoskeletal structure following a musculoskeletal system procedure;Chronic leukemia of unspecified cell type Presentation: 12/12 11:17 Presenting complaint: EMS states: Dr. Jacques did right knee arthroplasty 12/03/16-- ttb severe pain and swelling. No ROM d/t pain and swelling. Apt today at 1300. Pain increased last night -- pain was under control until then. Working with PT when pain started to increase. No injury noted. Adult Sepsis Screening: The patient does not have new or worsening altered mentation. Patient's respiratory rate is less than 22. Systolic blood pressure is greater than 100. Patient has a qSOFA score of 0- Negative Sepsis Screen. Suicide/Homicide risk assessment- the patient denies having any suicidal and/or homicidal ideations and does not present with any other emotional, behavioral or mental health complaints. Status: Patient is not a service desk lead or dependent. Transition of care: patient was not received from another setting of care. 11:17 Acuity: MAGO Level 3 ttb 11:17 Method Of Arrival: Ambulance ttb Triage Assessment: 11:30 General: Appears distressed, obese, uncomfortable, well nourished, well groomed, ttb Behavior is anxious, appropriate for age, cooperative, pleasant, restless. Pain: Location: right knee 10/10. Neurological: Level of Consciousness is awake, alert. Cardiovascular: Chest pain is denied. Respiratory: No deficits noted. Airway is patent Denies cough, shortness of breath. GI: Denies nausea, vomiting, pain. Derm: Skin is normal. Musculoskeletal: Range of motion limited in right knee Swelling present in lateral aspect of right knee, posterior aspect of right knee, medial aspect of right knee and right knee. Injury Description: surgery to right knee, no fall noted at home, just doing prescribed physical therapy. Historical: - Allergies: rotuxin; PENICILLINS; ofatumumab; Doxycycline; chemo drugs; Avelox; - Home Meds: 1. Imbruvica 140 mg oral cap once daily off until 12/15/16 2. Klor-Con M20 20 mEq Oral TbTQ 1 tab once daily (Last dose: 12/12/2016 07:00) 3. levothyroxine 75 mcg Oral cap 1 cap once daily (Last dose: 12/12/2016 07:00) 4. Vitamin D Oral 2000 unit twice a day (Last dose: 12/12/2016 07:00) 5. warfarin 4 mg oral tab 1 tab once daily 5mg , Saturday : 4mg every other day. (Last dose: 12/11/2016 18:00) 6. Percocet 5-325 mg Oral tab 2 tabs every 4 hours for Pain (Last dose: 12/12/2016 08:00) 7. Vitamin C Unknown oral daily (Last dose: 12/12/2016 07:00) 8. Magnesium Oxide Oral daily (Last dose: 12/12/2016 07:00) - PMHx: Leukemia; Hypothyroidism; - PSHx: Hysterectomy; Appendectomy; Cataract Surgery- Bilateral; right knee arthroplasy; - The history from nurses notes was reviewed: and I agree with what is documented. - Social history: Smoking status: Patient states was never smoker of tobacco. Patient/guardian denies using alcohol, street drugs, No barriers to communication noted, The patient speaks fluent Welsh, Speaks appropriately for age. - Family history: Not pertinent. - : The pt / caregiver states he / she is on anticoagulants: coumadin. Home medication list is obtained from the patient. - Hospitalizations: : No recent hospitalization is reported. - Exposure Risk Screening:: None identified. - Immunization history:: All immunizations up-to-date. - Social history:: the patient is a non-smoker, the patient does not drink alcohol. Screenin:37 Screening information is obtained from the patient. Fall risk: At risk due to gait ttb disturbance, The following interventions are performed due to a positive Fall Risk Screen: Fall Risk is added to Special Handling on the patient Summary Screen. A Fall Risk Bracelet was applied to the patient. Side Rails are placed in the up position. A Call Gonzalez is given with instruction to call for help when getting out of bed. Assistance ADL's: Requires assistance with housework, assistance is provided by family members. Abuse/DV Screen: The patient / caregiver reports he/she is: not in a situation that causes fear, pain or injury. Nutritional screening: No deficits noted. Advance Directives: Currently, there is no health care proxy. home support is adequate. Assessment: 11:37 General: see triage assessment. Pt given ice and positioned for comfort. Awaiting MD.. ttb 12:00 Reassessment: Patient appears in no apparent distress at this time. Patient states ttb feeling better. Patient states symptoms have improved. pt states she is more comfortable now. Awaiting US.. 12:40 Reassessment: Patient appears in no apparent distress at this time. Patient states ttb feeling better. Patient states symptoms have improved. meds given. Pt taken to US. at bedside. Pain improved since arrival. NAD noted.. 13:00 General: pt returned from US. Resting on stretcher. NAD noted.. ttb 13:03 Adult Sepsis Screening: The patient does not have new or worsening altered mentation. ttb Patient's respiratory rate is less than 22. Systolic blood pressure is greater than 100. Patient has a qSOFA score of 0- Negative Sepsis Screen. 14:00 General: Appears in no apparent distress, comfortable, Behavior is appropriate for age, ttb cooperative, pleasant. Pain: Location: right knee. Respiratory: Airway is patent Respiratory effort is even, unlabored, Denies cough, shortness of breath. Derm: Skin is normal, pale. 15:00 Reassessment: Patient appears in no apparent distress at this time. Patient states ttb feeling better. Patient states symptoms have improved. pt resting on stretcher awaiting transfer to room. at bedside.. General: Appears in no apparent distress, comfortable. Neurological: Level of Consciousness is awake, alert. Cardiovascular: Chest pain is denied. Respiratory: No deficits noted. Airway is patent Respiratory effort is even, unlabored, Denies cough, shortness of breath. Derm: Skin is normal, pale. 15:00 Adult Sepsis Screening: The patient does not have new or worsening altered mentation. ttb Patient's respiratory rate is less than 22. Systolic blood pressure is greater than 100. Patient has a qSOFA score of 0- Negative Sepsis Screen. 15:31 General: floor states they need 10 min and will accept pt.. ttb 15:34 General: Appears in no apparent distress, comfortable. Neurological: Level of ttb Consciousness is awake, alert. Cardiovascular: Chest pain is denied. Respiratory: Airway is patent Respiratory effort is even, unlabored, Denies cough, shortness of breath. GI: Denies nausea, vomiting. Derm: Skin is normal. 15:42 General: pt given pain meds per admission orders with crackers. Ice to right knee. ttb at bedside. Pt transported to floor at this time. . Vital Signs: 11:25 BP 169 / 74; Pulse 82; Resp 20; Pulse Ox 99% on R/A; Weight 78.02 kg; Height 5 ft. 2 ttb in. (157.48 cm) (M); Pain 10/10; 12:03 Temp 98.5(O); jlf 13:00 BP 152 / 66 (auto/); ttb 13:01 Pulse 76 MON; Resp 18 S; Pulse Ox 96% on R/A; Pain 6/10; ttb 15:14 BP 134 / 62; Pulse 78; Resp 18; Temp 98.6(O); Pulse Ox 95% on R/A; Pain 5/10; mcp 11:25 Body Mass Index 31.46 (78.02 kg, 157.48 cm) ttb Vitals: 11:25 Log In Time N/A - ambulance arrival. ttb ED Course: 11:15 Patient visited by Tiffany Parikh, Tower Equipment Installer. lbd 11:15 Tiffany Muñiz is Private Physician. lbd 11:15 Patient moved to Waiting lbd 11:16 Nida Monterroso,MAGGIE is Primary Nurse. lbd 11:16 Patient moved to 6 lbd 11:20 Triage Initiated ttb 11:32 Patient visited by Carmen Templeton RN. ttb 11:35 Gregory Cameron MD is Attending Physician. pc 11:37 The patient / caregiver is instructed regarding the plan of care and ED course. Patient ttb has correct armband on for positive identification. Placed in gown. Bed in low position. Call light in reach. Side rails up X2. Pulse ox on. 11:37 Patient's right legelevated and ice pack applied. ttb 11:39 Patient visited by Carmen Templeton RN. ttb 11:59 Patient visited by Gregory Cameron MD. pc 12:02 Patient visited by Patricia Dave PCA. jlf 12:03 Patient visited by Patricia Dave PCA. jlf 12:07 C Reactive Protein Sent. ttb 12:07 ESR Sent. ttb 12:07 Pt & Aptt Sent. ttb 12:07 MED Profile Sent. ttb 12:07 CBC with Diff Sent. ttb 12:08 Patient visited by Carmen Templeton RN. ttb 12:08 Inserted peripheral IV: 20gauge IV in right antecubital area and blood collected. ttb Patient tolerated the procedure well. Labs drawn. (by ED staff). 12:31 DIFFERENTIAL NO CHARGE Sent. ttb 12:38 Patient moved to Ultrasound sm5 12:40 Patient visited by Carmen Templeton RN. ttb 13:03 Patient visited by Carmen Templeton RN. ttb 13:06 Patient moved to 6 sm5 13:38 Patient visited by Patricia Dave PCA. jlf 13:53 Mathew Amado is Hospitalizing Provider. pc 14:06 DVT US Lower Returned. EDMS 15:14 [facility] Payment Agreement was scanned into [employer] and attached to record. mm15 15:20 Patient visited by Carmen Templeton RN. ttb 15:20 Patient visited by Carmen Templeton RN. ttb 15:34 No procedures done that require assistance. ttb Administered Medications: 12:28 Drug: Ondansetron 4 mg [ondansetron HCl 2 mg/mL intravenous solution (2 mL)] Route: ttb IVP; Site: right antecubital; 12:32 Drug: morphine 4 mg [morphine 4 mg/mL intravenous cartridge (1 mL)] Route: IVP; Site: ttb right antecubital; 15:41 Drug: oxyCODONE-acetaminophen 2 tabs [oxycodone-acetaminophen 5 mg-325 mg tablet (2 ttb tabs)] Route: PO; Order Results: Lab Order: CBC with Diff; SPEC'M 12/12/16 12:06 Test: WHITE BLOOD COUNT; Value: 45.3; Range: 4.0-10.0; Abnormal: Above upper panic limits; Units: K/mm3; Status: F Test: RED BLOOD COUNT; Value: 2.48; Range: 4.00-5.40; Abnormal: Below low normal; Units: M/mm3; Status: F Test: HEMOGLOBIN; Value: 7.5; Range: 12.0-16.0; Abnormal: Below low normal; Units: g/dl; Status: F Test: HEMATOCRIT; Value: 23.8; Range: 36.0-47.0; Abnormal: Below low normal; Units: %; Status: F Test: MEAN CORPUSCULAR VOLUME; Value: 95.9; Range: 80.0-96.0; Units: fl; Status: F Test: MEAN CORPUSCULAR HEMOGLOBIN; Value: 30.4; Range: 27.0-33.0; Units: pg; Status: F Test: MEAN CORPUSCULAR HGB CONC; Value: 31.7; Range: 32.0-36.5; Abnormal: Below low normal; Units: g/dl; Status: F Test: RED CELL DISTRIBUTION WIDTH; Value: 16.1; Range: 11.5-14.5; Abnormal: Above high normal; Units: %; Status: F Test: PLATELET COUNT, AUTOMATED; Value: 251; Range: 150-450; Units: k/mm3; Status: F Test Note: ; A Pathologist review of this differential can help in the evaluation of a differential diagnosis. Please order a Pathologist Review (PATHREVCOMP) if deemed necessary. Results are subject to change if a Pathologist Review is performed.\T\ Patient : 1935 Test: NEUTROPHILS; Value: 35; Range: 35-75; Units: %; Status: F Test: BANDS; Value: 5; Range: < 11; Units: %; Status: F Test: LYMPHOCYTES; Value: 36; Range: 16-52; Units: %; Status: F Test: EOSINOPHILS; Value: 4; Range: 0-5; Units: %; Status: F Test: METAMYELOCYTES; Value: 2; Range: 0-0; Abnormal: Above high normal; Units: %; Status: F Test: MYELOCYTES; Value: 6; Range: 0-0; Abnormal: Above high normal; Units: %; Status: F Test: ATYPICAL LYMPH; Value: 12; Range: 0-5; Abnormal: Above high normal; Units: %; Status: F Test: POLYCHROMASIA; Value: 1+; Status: F Test: POIKILOCYTOSIS; Value: 1+; Status: F Test: SMUDGE CELLS; Value: 2+; Status: F Lab Order: MED Profile; SPEC'M 12/12/16 12:06 Test: GLUCOSE, FASTING; Value: 105; Range: 83-110; Units: MG/DL; Status: F Test: BLOOD UREA NITROGEN; Value: 28; Range: 7-18; Abnormal: Above high normal; Units: MG/DL; Status: F Test: CREATININE FOR GFR; Value: 1.26; Range: 0.55-1.02; Abnormal: Above high normal; Units: MG/DL; Status: F Test: GLOMERULAR FILTRATION RATE; Value: 43.5; Range: >32; Status: F Test: SODIUM LEVEL; Value: 132; Range: 136-145; Abnormal: Below low normal; Units: MEQ/L; Status: F Test: POTASSIUM SERUM; Value: 5.1; Range: 3.5-5.1; Units: MEQ/L; Status: F Test: CHLORIDE LEVEL; Value: 98; Range: 98-107; Units: MEQ/L; Status: F Test: CARBON DIOXIDE LEVEL; Value: 23; Range: 21-32; Units: MEQ/L; Status: F Test: ANION GAP; Value: 11; Range: 8-16; Units: MEQ/L; Status: F Test: CALCIUM LEVEL; Value: 8.0; Range: 8.8-10.2; Abnormal: Below low normal; Units: MG/DL; Status: F Test Note: ; Units are mL/min/1.73 m2 Chronic Kidney Disease Staging per NKF: Stage I & II GFR >=60 Normal to Mildly Decreased Stage III GFR 30-59 Moderately Decreased Stage IV GFR 15-29 Severely Decreased Stage V GFR <15 Very Little GFR Left ESRD GFR <15 on POWDER CARRIER Lab Order: Pt & Aptt; SPEC'M 12/12/16 12:06 Test: PROTHROMBIN TIME; Value: 35.2; Range: 12.3-14.5; Abnormal: Above high normal; Units: SECONDS; Status: F Test: INR; Value: 3.51; Status: F Test: PARTIAL THROMBOPLASTIN TIME; Value: 34.3; Range: 26.6-37.1; Units: SECONDS; Status: F Test Note: ; THERAPUTIC HUMAN INR VALUES INDICATIONS NORMAL RANGES PROPHYLAXIS/TREATMENT OF: VENOUS THROMBOSIS 2.0-3.0 PULMONARY EMBOLISM 2.0-3.0 PREVENTION OF SYSTEMIC EMBOLISM FROM: TISSUE HEART VALVES 2.0-3.0 ACUTE MYOCARDIAL INFARCTION 2.0-3.0 VALVULAR HEART DISEASE 2.0-3.0 ATRIAL FIBRILLATION 2.0-3.0 MECHANICAL VALVES(HIGH RISK) 2.5-3.5 RECURRENT MYOCARDIAL INFARCTION 2.5-3.5 Lab Order: ESR; [facility] 12/12/16 12:06 Test: ERYTHROCYTE SEDIMENTATION RATE; Value: 51; Range: 0-30; Abnormal: Above high normal; Units: mm/hr; Status: F Lab Order: C Reactive Protein; [facility] 12/12/16 12:06 Test: C REACTIVE PROTEIN QUANTITATIV; Value: 3.13; Range: 0.00-0.30; Abnormal: Above high normal; Units: MG/DL; Status: F Lab Order: PLATELET ESTIMATE; [facility] 12/12/16 12:06 Test: PLATELET ESTIMATE; Value: NORMAL; Range: NORMAL; Status: F Lab Order: MAGNESIUM LEVEL; [facility] 12/12/16 12:06 Test: MAGNESIUM LEVEL; Value: 2.7; Range: 1.8-2.4; Abnormal: Above high normal; Units: MG/DL; Status: F Radiology Order: DVT US Lower Test: DVT US Lower REASON FOR EXAMINATION: Deformity/Swelling; RIGHT LOWER EXTREMITY DUPLEX VENOUS ULTRASOUND:; ; HISTORY: Patient status post right knee replacement surgery 9 days ago with; deformity and swelling. Question venous thrombosis.; ; FINDINGS: There is occlusive thrombosis of the right popliteal vein with; echogenic material and lack of compressibility and lack of Doppler flow. The; femoral vein and common femoral vein and greater saphenous vein segments are; anechoic and compressible and appear patent. There is a fluid collection in the; distal five posteriorly measuring 10.7 x 2.8 x 6.4 cm. This is posterior to the; distal femur.; ; IMPRESSION:; 1. There is occlusive deep venous thrombosis involving the right popliteal; vein.; 2. There is a 10 cm fluid collection above the level of the knee and posterior; to the distal femur consistent with hematoma.; ; ; ; ; Unreviewed; Outcome: 13:53 Decision to Hospitalize by Provider. pc 15:34 Discharge Assessment: Patient awake, alert and oriented x 3. No cognitive and/or ttb functional deficits noted. Patient verbalized understanding of disposition instructions. Patient awake and alert. patient administered narcotics - yes. Patient was admitted to the hospital or transferred to another facility. The following High Risk Discharge criteria are identified: Yes, admit. Admitted to Med/Surg accompanied by tech, family with patient, via stretcher, with chart. Condition: stable. No special radiology studies were completed. Admission hand-off: Report called to [facility] Report Faxed Fax receipt verified by [facility]. Property :Personal belongings accompany Pt. 15:42 Patient left the ED. ttb Signatures: Dispatcher [employer] EDMS Gregory Cameron MD MD pc Daly, Linda, Tower Equipment Installer Unit lbd Tiny Juarez RN RN Carla Perason sm5 Carmen Templeton RN RN ttb Leigh Love mm15 Patricia Dave, [employer] SALES REPRESENTATIVE jlf Corrections: (The following items were deleted from the chart) 11:37 11:17 Presenting complaint: EMS states: Dr. Jacques did right knee arthroplasty 12/03/16-- ttb severe pain and swelling. No ROM d/t pain and swelling. Apt today at 1300. Pain increased last night -- pain was under control until then. Working with PT when pain started to increase. ttb MTDD
--- NOTE | 2016-12-12 15:43 | EDDOCDS ---
Physician Documentation [facility] Name: Lizzy Bray Age: 81 yrs Sex: Female : 1935 Arrival Date: 12/12/2016 Time: 11:13 Bed 6 Private MD: Tiffany Muñiz ANP Disposition: 12/12 13:47 Critical Care: Critical care not applicable. pc Disposition: 12/12/16 13:53 Hospitalization ordered by Mathew Amado for Inpatient Admission. Preliminary diagnosis are Acute embolism and thrombosis of other specified deep vein of right lower extremity, Postprocedural hemorrhage and hematoma of a musculoskeletal structure following a musculoskeletal system procedure, Chronic leukemia of unspecified cell type. - Bed requested for 4 [place]. - Status is Inpatient Admission. ttb - Condition is Stable. - Problem is new. - Symptoms are unchanged. HPI: 12:16 This 81 yrs old Female presents to ER via Ambulance with complaints of Knee pc Pain. 12:16 The history is obtained from the patient. She is 9 days s/p right TKR. She has been pc having swelling in her leg for 2-3 days and now complains of severe pain with any ROM of the knee. She denies any chest pain or SOB. She denies any skin color changes to her RLE. She denies any fevers or chills. She is on Coumadin and her INR was "good" 3 days ago. The patient has not experienced similar symptoms in the past. The patient has been recently seen by Dr. Jacques. Historical: - Allergies: rotuxin; PENICILLINS; ofatumumab; Doxycycline; chemo drugs; Avelox; - Home Meds: 1. Imbruvica 140 mg oral cap once daily off until 12/15/16 2. Klor-Con M20 20 mEq Oral TbTQ 1 tab once daily (Last dose: 12/12/2016 07:00) 3. levothyroxine 75 mcg Oral cap 1 cap once daily (Last dose: 12/12/2016 07:00) 4. Vitamin D Oral 2000 unit twice a day (Last dose: 12/12/2016 07:00) 5. warfarin 4 mg oral tab 1 tab once daily 5mg , Saturday : 4mg every other day. (Last dose: 12/11/2016 18:00) 6. Percocet 5-325 mg Oral tab 2 tabs every 4 hours for Pain (Last dose: 12/12/2016 08:00) 7. Vitamin C Unknown oral daily (Last dose: 12/12/2016 07:00) 8. Magnesium Oxide Oral daily (Last dose: 12/12/2016 07:00) - PMHx: Leukemia; Hypothyroidism; - PSHx: Hysterectomy; Appendectomy; Cataract Surgery- Bilateral; right knee arthroplasy; - The history from nurses notes was reviewed: and I agree with what is documented. - Social history: Smoking status: Patient states was never smoker of tobacco. Patient/guardian denies using alcohol, street drugs, No barriers to communication noted, The patient speaks fluent Ugandan, Speaks appropriately for age. - Family history: Not pertinent. - : The pt / caregiver states he / she is on anticoagulants: coumadin. Home medication list is obtained from the patient. - Hospitalizations: : No recent hospitalization is reported. - Exposure Risk Screening:: None identified. - Immunization history:: All immunizations up-to-date. - Social history:: the patient is a non-smoker, the patient does not drink alcohol. ROS: 12:16 All systems are negative except as listed. pc Exam: 12:16 General Appearance: alert, the patient is in moderate distress. pc 12:16 EENT: normal eye inspection, ears, nose and throat normal, pharynx normal, mucous membranes moist 12:16 Neck: The exam reveals no acute abnormalities. ROM is normal and painless. No nuchal rigidity is noted.. 12:16 Respiratory: no respiratory distress, normal breath sounds. 12:16 CVS: regular pulse rate, regular rhythm, normal S1 and S2, no murmurs, strong peripheral pulses. 12:16 Abdomen: soft, non-tender, no organomegaly, normal bowel sounds. 12:16 Back: normal inspection. 12:16 Skin: skin color is normal, warm, dry. 12:16 Extremities: grossly normal except: noted in the right leg: grossly swollen from thigh to foot. Negative Venecia's. Calf nontender. Knee has a bandage in place with a few punctate areas of drainage noted. No erythema of skin noted. Any ROM is met with severe pain. Pedal pulse are normal and the extremity is warm to touch. No sensory changes. 12:16 Neuro: oriented x 3, cranial nerves normal as tested, no motor deficits, no sensory deficits. Vital Signs: 11:25 BP 169 / 74; Pulse 82; Resp 20; Pulse Ox 99% on R/A; Weight 78.02 kg / 172 lbs; Height ttb 5 ft. 2 in. (157.48 cm) (M); Pain 10/10; 12:03 Temp 98.5(O); jlf 13:00 BP 152 / 66 (auto/); ttb 13:01 Pulse 76 MON; Resp 18 S; Pulse Ox 96% on R/A; Pain 6/10; ttb 15:14 BP 134 / 62; Pulse 78; Resp 18; Temp 98.6(O); Pulse Ox 95% on R/A; Pain 5/10; mcp 11:25 Body Mass Index 31.46 (78.02 kg, 157.48 cm) ttb MDM: 12:00 IV Saline Lock ordered. pc 12:00 morphine 4 mg IVP once ordered. pc 12:00 Ondansetron 4 mg IVP once ordered. pc 12:01 CBC with Diff Ordered. EDMS 12:01 MED Profile Ordered. EDMS 12:01 Pt & Aptt Ordered. EDMS 12:01 ESR Ordered. EDMS 12:01 C Reactive Protein Ordered. EDMS 12:01 DVT US Lower Ordered. EDMS 12:16 Differential Diagnosis: DVT, infected hardware. Plan: labs, analgesia, imaging. pc 12:31 DIFFERENTIAL NO CHARGE Ordered. EDMS 13:03 CBC with Diff Reviewed. pc 13:03 MED Profile Reviewed. pc 13:03 Pt & Aptt Reviewed. pc 13:03 ESR Reviewed. pc 13:03 C Reactive Protein Reviewed. pc 13:03 PLATELET ESTIMATE Reviewed. pc 13:04 Chest, 1 View Ordered. EDMS 13:33 BED REQUEST+ADM ordered. EDMS 13:47 Data reviewed: old medical records, vital signs, nurses notes, lab test results, all pc radiology studies and available results. Test interpretation: LAB - all labs as ordered have been reviewed, interpreted and considered in the overall management of the clinical presentation; X-RAY - interpreted by ny, 1 view chest no acute disease. The patient has been re-examined and re-evaluated. There is no appreciated change of the patient's symptoms at this time. Physician consultation: Dr. Jeremy Jacques regarding patient's condition, and will see patient in inpatient room. 13:47 Test interpretation: Ultrasound - interpreted by Radiologist, Extremity Lower Right DVT pc in popliteal vein, 1cm hematoma behind knee. Physician consultation: Dr. Mathew Amado regarding admission, and will see patient in ED. Disposition: The historical points, examination findings, and any diagnostic results supporting the provided diagnosis, were discussed with the patient or legal guardian. The need for further work-up and/or treatment in the hospital was explained. 14:27 Admission / Observation Status ordered. EDMS 14:30 REGULAR DIET ordered. EDMS 14:48 MAGNESIUM LEVEL Ordered. EDMS 14:57 Financial registration complete. mm15 15:14 [facility] [place] Agreement was scanned into [employer] and attached to record. mm15 15:41 oxyCODONE-acetaminophen 5 mg-325 mg 2 tabs PO once; admission order ordered. ttb Administered Medications: 12:28 Drug: Ondansetron 4 mg [ondansetron HCl 2 mg/mL intravenous solution (2 mL)] Route: ttb IVP; Site: right antecubital; 12:32 Drug: morphine 4 mg [morphine 4 mg/mL intravenous cartridge (1 mL)] Route: IVP; Site: ttb right antecubital; 15:41 Drug: oxyCODONE-acetaminophen 2 tabs [oxycodone-acetaminophen 5 mg-325 mg tablet (2 ttb tabs)] Route: PO; Signatures: Dispatcher [employer] EDAR Gregory Cameron MD MD pc Conner, Teresa, RN RN ttb Leigh Love mm15 Nba Low RN RN mts The chart was reviewed and I authenticate all verbal orders and agree with the evaluation and treatment provided.Corrections: (The following items were deleted from the chart) 14:49 14:42 MAGNESIUM LEVEL ordered. EDAR EDMS Attachments: 15:14 [facility] Payment Agreement mm15 MTDD
[2016-12-12 15:50] VITALS: BP 149/68
[2016-12-12 22:00] VITALS: BP 124/60
[2016-12-12] MEDS: PERCOCET 5MG/325MG TAB PO PRN (22:21)
[2016-12-13] MEDS: PERCOCET 5MG/325MG TAB PO PRN ×3 (04:27→18:15)
[2016-12-13 06:00] VITALS: BP 129/61
[2016-12-13] MEDS ORDERED: LEVOTHYROXINE 0.075 MG TAB (75 MCG) PO SCH (06:00)
[2016-12-13 06:04] LABS: DIFF SLIDE NUMBER 81; MEAN CORPUSCULAR HEMOGLOBIN 31.4 pg (27.0-33.0); MEAN CORPUSCULAR HGB CONC 32.7 g/dl (32.0-36.5); MEAN CORPUSCULAR VOLUME 95.8 fl (80.0-96.0); PLATELET COUNT, AUTOMATED 212 k/mm3 (150-450); RED CELL DISTRIBUTION WIDTH 16.5 % (11.5-14.5)
[2016-12-13 06:19] LABS: WHITE BLOOD COUNT 33.4 K/mm3 (4.0-10.0)
[2016-12-13 06:23] LABS: ALBUMIN 2.8 GM/DL (3.2-5.2); ALBUMIN/GLOBULIN RATIO 1.17 (1.00-1.93); BILIRUBIN,TOTAL 0.8 MG/DL (0.2-1.0); CALCIUM LEVEL 7.7 MG/DL (8.8-10.2); CREATININE FOR GFR 1.22 MG/DL (0.55-1.02); GLOMERULAR FILTRATION RATE 45.1 (>32); POTASSIUM SERUM 4.6 MEQ/L (3.5-5.1); TOTAL PROTEIN 5.2 GM/DL (6.4-8.2)
[2016-12-13 06:27] LABS: ERYTHROCYTE SEDIMENTATION RATE 51 mm/hr (0-30)
[2016-12-13 07:19] LABS: BANDS 1 % (< 11); BLAST CELLS 1 % (0-0); EOSINOPHILS 1 % (0-5); NUCLEATED RED BLOOD CELL 1 % (0-0)
[2016-12-13 07:20] LABS: ANISOCYTOSIS 1+; SMUDGE CELLS 3+
[2016-12-13 07:22] LABS: HYPOCHROMASIA 1+
[2016-12-13 07:23] LABS: POIKILOCYTOSIS 1+
[2016-12-13 07:24] LABS: POLYCHROMASIA 1+
[2016-12-13 08:06] LABS: INR 2.62
[2016-12-13 08:20] LABS: REASON FOR REVIEW OTHER
[2016-12-13] MEDS ORDERED: MULTIVITAMINS/MINERALS THERAP 1 TAB PO SCH (09:00)
[2016-12-13] MEDS ORDERED: VITAMIN D 1,000 INTERNATIONAL UNITS TABLET PO SCH (09:00)
[2016-12-13] MEDS ORDERED: ASCORBIC ACID 500 MG TAB PO SCH (09:00)
--- NOTE | 2016-12-13 10:23 | CR ---
DATE OF CONSULTATION: 12/13/2016 The patient was seen 12/13/2016 just before 07:00 a.m. The patient was in her hospital bed, alert and oriented, complaining of no particular pain. The patient had been admitted yesterday through the emergency room (ER) where she was found to have swelling in her operated right leg with a combination of a hematoma and a deep vein thrombosis (DVT). The patient had been fairly aggressively treated for anticoagulation because of her prior history. In fact, when she came into the ER her INR was 3.51. The patient was and has been afebrile. She was admitted to the hospitalist service to manage her DVT. The patient initially came in with an elevated white count of 45,000. This morning at 0530, it was down to 33. Her hemoglobin was down from 7.5 to 6.8, probably accounted for by the large subcutaneous hematoma in her leg. The patient's sedimentation rate at 51 is not uncommon with all that she has going on. Examination showed that the patient did in fact have a thigh hematoma consistent with postoperative bleeding. Her wound otherwise appeared benign. Her distal neurovascular status appeared intact. She was able to do ankle pumps without any particular pain. There was no evidence for a compartment syndrome. The patient and I discussed the idea that there is really nothing we can do to drain the hematoma, especially with her anticoagulated. Very often, hematomas drained cannot be closed back up and the prospect of an open wound, possible infection and continued bleeding I think would be very hard to manage medically. She was reassured that usually this far out from surgery that hematomas simply will slowly be resolved. The patient is quite pale with a dropping hemoglobin. She understands that she might require a transfusion and then to manage her anticoagulation now extending into many months. I think it would be a good idea for the patient to continue to have therapy see her. Ice can be utilized as part of the treatment for her knee pain. Obviously, she is likely to lose some motion potential for her knee, but aggressive manipulation of the knee really has no place at this point in time. The patient does understand that this is a bit of a setback. The idea that somebody can form a DVT even while this anticoagulated is somewhat of a conundrum. We do not know the reason why, but we still have to treat it as such. Therapy will be ordered. As of this dictation, this morning's coagulation studies are not available. Fay will check to make sure that they had been ordered as the nurses could not find an order for those. Physical therapy will be ordered for ambulation. I think it would still be prudent to apply thromboembolic deterrent stockings (TEDS) and sequentials to the nonoperative leg.
[2016-12-13] MEDS ORDERED: HEPARIN DRIP 25,000 UNITS in APPROPRIATE DILUENT 1 EA IV SCH (12:54)
[2016-12-13] MEDS ORDERED: HEPARIN SOD (PORCINE) 5000 UNITS/ML VIAL IV PRN (13:00)
[2016-12-13 14:00] VITALS: BP 133/63
[2016-12-13] MEDS ORDERED: WARFARIN SOD 5 MG TAB PO ONE (17:00)
--- NOTE | 2016-12-13 19:40 | DSES ---
DATE OF ADMISSION: 12/12/2016 DATE OF DISCHARGE: Pending accepting bed at [facility] for transfer, patient on wait list. HEMATOLOGY/ONCOLOGIST: Dr. Karimi ACCEPTING HEMATOLOGY/ONCOLOGIST: Dr. Perkins PRIMARY CARE PROVIDER: Tiffany Muñiz NP FINAL DIAGNOSES: 1. Right lower extremity deep vein thrombosis (DVT). 2. Supratherapeutic international normalized ratio (INR). 3. Right lower extremity hematoma. 4. Transforming chronic lymphocytic leukemia (CLL). 5. Acute blood loss anemia. 6. History of pulmonary embolism (PE). 7. Hypothyroidism. 8. Hypokalemia. 9. Hypomagnesemia. 10. Leukocytosis. 11. Chronic kidney disease (CKD). 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 She states that she has been developing increasing pain and edema in the bilateral lower extremities from the thigh to the foot since Saturday. Today, the patient called emergency medical services (EMS) related to increasing pain and edema and came to the emergency room (ER) for evaluation. Denies any fevers, chills, weakness, fatigue, headache, chest pain or pressure, shortness of breath, coughing, palpitations, abdominal pain, nausea, vomiting, diarrhea, or change in bowel or bladder habits. The patient presented to the hospital and was found to have a popliteal vein deep vein thrombosis (DVT) and also hematoma at the level of the knee. Subsequently, the patient was admitted. HOSPITAL COURSE: The patient was admitted to the hospital, transfuse two units packed red blood cells (PRBC), irradiated and leukocyte depleted. Also aware that the patient had significant higher white blood cell (WBC) count and subsequently peripheral smear has been sent. Case discussed with Dr. Warner given history of chronic lymphocytic leukemia with increased WBC count, presence of immature lymphoid cells and blasts worrisome for transformation to high-grade leukemia. Subsequently, Dr. Karimi from [facility] hematology/oncology was called, discussed the patient and recommended transferring the patient. Discussed the case with Dr. Perkins, the accepting physician, at [facility]. The patient is accepted, waiting for a bed for transfer. In the meantime, we will follow the patient for serum viscosity. Orthopedic surgeon, Dr. Jacques, has consulted the patient and recommended no further surgical procedure is possible at this time. Given the patient has a supratherapeutic international normalized ratio (INR), Coumadin is on hold. The patient is placed on a heparin drip. Home medications were continued. The patient currently is on the floor waiting to be transferred. VITAL SIGNS: Temperature 98.1, pulse 86, respirations 18, blood pressure 133/63, pulse oximetry 93% on room air. LABORATORY DATA: WBC 33.4, hemoglobin and hematocrit 6.8/20.7, platelets 212. Chemistry: Sodium 137, potassium 4.6, chloride 105, bicarbonate 26, BUN 21, creatinine 1.22. INPATIENT MEDICATIONS: The patient is on: - acetaminophen 650 mg by mouth every four hours as needed - heparin drip - vitamin C 500 mg by mouth daily - Synthroid 0.075 mg by mouth daily - multivitamin one tablet by mouth daily - Zofran 4 mg IV every six hours as needed - Percocet 5/325 mg by mouth six hours as needed - vitamin D 4000 units by mouth daily DISCHARGE INSTRUCTIONS: The patient is instructed to followup with providers at [facility] ([facility] for further care. After discharge, followup with orthopedic surgery in five days and primary care provider in five days for further care.
[2016-12-13 21:35] VITALS: BP 143/67
--- NOTE | 2016-12-14 16:43 | EDDOCDS ---
Physician Documentation [facility] Name: Lizzy Bray Age: 81 yrs Sex: Female : 1935 Arrival Date: 12/12/2016 Time: 11:13 Bed 6 Private MD: Tiffany Muñiz ANP Disposition: 12/12 13:47 Critical Care: Critical care not applicable. pc Disposition: 12/12/16 13:53 Hospitalization ordered by Mathew Amado for Inpatient Admission. Preliminary diagnosis are Acute embolism and thrombosis of other specified deep vein of right lower extremity, Postprocedural hemorrhage and hematoma of a musculoskeletal structure following a musculoskeletal system procedure, Chronic leukemia of unspecified cell type. - Bed requested for 4 [place]. - Status is Inpatient Admission. ttb - Condition is Stable. - Problem is new. - Symptoms are unchanged. HPI: 12:16 This 81 yrs old Female presents to ER via Ambulance with complaints of Knee pc Pain. 12:16 The history is obtained from the patient. She is 9 days s/p right TKR. She has been pc having swelling in her leg for 2-3 days and now complains of severe pain with any ROM of the knee. She denies any chest pain or SOB. She denies any skin color changes to her RLE. She denies any fevers or chills. She is on Coumadin and her INR was "good" 3 days ago. The patient has not experienced similar symptoms in the past. The patient has been recently seen by Dr. Jacques. Historical: - Allergies: rotuxin; PENICILLINS; ofatumumab; Doxycycline; chemo drugs; Avelox; - Home Meds: 1. Imbruvica 140 mg oral cap once daily off until 12/15/16 2. Klor-Con M20 20 mEq Oral TbTQ 1 tab once daily (Last dose: 12/12/2016 07:00) 3. levothyroxine 75 mcg Oral cap 1 cap once daily (Last dose: 12/12/2016 07:00) 4. Vitamin D Oral 2000 unit twice a day (Last dose: 12/12/2016 07:00) 5. warfarin 4 mg oral tab 1 tab once daily 5mg , Saturday : 4mg every other day. (Last dose: 12/11/2016 18:00) 6. Percocet 5-325 mg Oral tab 2 tabs every 4 hours for Pain (Last dose: 12/12/2016 08:00) 7. Vitamin C Unknown oral daily (Last dose: 12/12/2016 07:00) 8. Magnesium Oxide Oral daily (Last dose: 12/12/2016 07:00) - PMHx: Leukemia; Hypothyroidism; - PSHx: Hysterectomy; Appendectomy; Cataract Surgery- Bilateral; right knee arthroplasy; - The history from nurses notes was reviewed: and I agree with what is documented. - Social history: Smoking status: Patient states was never smoker of tobacco. Patient/guardian denies using alcohol, street drugs, No barriers to communication noted, The patient speaks fluent [place], Speaks appropriately for age. - Family history: Not pertinent. - : The pt / caregiver states he / she is on anticoagulants: coumadin. Home medication list is obtained from the patient. - Hospitalizations: : No recent hospitalization is reported. - Exposure Risk Screening:: None identified. - Immunization history:: All immunizations up-to-date. - Social history:: the patient is a non-smoker, the patient does not drink alcohol. ROS: 12:16 All systems are negative except as listed. pc Exam: 12:16 General Appearance: alert, the patient is in moderate distress. pc 12:16 EENT: normal eye inspection, ears, nose and throat normal, pharynx normal, mucous membranes moist 12:16 Neck: The exam reveals no acute abnormalities. ROM is normal and painless. No nuchal rigidity is noted.. 12:16 Respiratory: no respiratory distress, normal breath sounds. 12:16 CVS: regular pulse rate, regular rhythm, normal S1 and S2, no murmurs, strong peripheral pulses. 12:16 Abdomen: soft, non-tender, no organomegaly, normal bowel sounds. 12:16 Back: normal inspection. 12:16 Skin: skin color is normal, warm, dry. 12:16 Extremities: grossly normal except: noted in the right leg: grossly swollen from thigh to foot. Negative Venecia's. Calf nontender. Knee has a bandage in place with a few punctate areas of drainage noted. No erythema of skin noted. Any ROM is met with severe pain. Pedal pulse are normal and the extremity is warm to touch. No sensory changes. 12:16 Neuro: oriented x 3, cranial nerves normal as tested, no motor deficits, no sensory deficits. Vital Signs: 11:25 BP 169 / 74; Pulse 82; Resp 20; Pulse Ox 99% on R/A; Weight 78.02 kg / 172 lbs; Height ttb 5 ft. 2 in. (157.48 cm) (M); Pain 10/10; 12:03 Temp 98.5(O); jlf 13:00 BP 152 / 66 (auto/); ttb 13:01 Pulse 76 MON; Resp 18 S; Pulse Ox 96% on R/A; Pain 6/10; ttb 15:14 BP 134 / 62; Pulse 78; Resp 18; Temp 98.6(O); Pulse Ox 95% on R/A; Pain 5/10; mcp 11:25 Body Mass Index 31.46 (78.02 kg, 157.48 cm) ttb MDM: 12:00 IV Saline Lock ordered. pc 12:00 morphine 4 mg IVP once ordered. pc 12:00 Ondansetron 4 mg IVP once ordered. pc 12:01 CBC with Diff Ordered. EDMS 12:01 MED Profile Ordered. EDMS 12:01 Pt & Aptt Ordered. EDMS 12:01 ESR Ordered. EDMS 12:01 C Reactive Protein Ordered. EDMS 12:01 DVT US Lower Ordered. EDMS 12:16 Differential Diagnosis: DVT, infected hardware. Plan: labs, analgesia, imaging. pc 12:31 DIFFERENTIAL NO CHARGE Ordered. EDMS 13:03 CBC with Diff Reviewed. pc 13:03 MED Profile Reviewed. pc 13:03 Pt & Aptt Reviewed. pc 13:03 ESR Reviewed. pc 13:03 C Reactive Protein Reviewed. pc 13:03 PLATELET ESTIMATE Reviewed. pc 13:04 Chest, 1 View Ordered. EDMS 13:33 BED REQUEST+ADM ordered. EDMS 13:47 Data reviewed: old medical records, vital signs, nurses notes, lab test results, all pc radiology studies and available results. Test interpretation: LAB - all labs as ordered have been reviewed, interpreted and considered in the overall management of the clinical presentation; X-RAY - interpreted by ma, 1 view chest no acute disease. The patient has been re-examined and re-evaluated. There is no appreciated change of the patient's symptoms at this time. Physician consultation: Dr. Jeremy Jacques regarding patient's condition, and will see patient in inpatient room. 13:47 Test interpretation: Ultrasound - interpreted by Radiologist, Extremity Lower Right DVT pc in popliteal vein, 1cm hematoma behind knee. Physician consultation: Dr. Mathew Amado regarding admission, and will see patient in ED. Disposition: The historical points, examination findings, and any diagnostic results supporting the provided diagnosis, were discussed with the patient or legal guardian. The need for further work-up and/or treatment in the hospital was explained. 14:27 Admission / Observation Status ordered. EDMS 14:30 REGULAR DIET ordered. EDMS 14:48 MAGNESIUM LEVEL Ordered. EDMS 14:57 Financial registration complete. mm15 15:14 [facility] Payment Agreement was scanned into [employer] and attached to record. mm15 15:41 oxyCODONE-acetaminophen 5 mg-325 mg 2 tabs PO once; admission order ordered. ttb Administered Medications: 12:28 Drug: Ondansetron 4 mg [ondansetron HCl 2 mg/mL intravenous solution (2 mL)] Route: ttb IVP; Site: right antecubital; 12:32 Drug: morphine 4 mg [morphine 4 mg/mL intravenous cartridge (1 mL)] Route: IVP; Site: ttb right antecubital; 15:41 Drug: oxyCODONE-acetaminophen 2 tabs [oxycodone-acetaminophen 5 mg-325 mg tablet (2 ttb tabs)] Route: PO; Signatures: Dispatcher [employer] EDMD Gregory Cameron MD MD pc Conner, Teresa, RN RN ttb Leigh Love mm15 Nba Low RN RN mts The chart was reviewed and I authenticate all verbal orders and agree with the evaluation and treatment provided.Corrections: (The following items were deleted from the chart) 14:49 14:42 MAGNESIUM LEVEL ordered. EDMS EDMS Attachments: 15:14 [facility] Payment Agreement mm15 Chart Complete MTDD
--- NOTE | 2016-12-14 16:44 | EDDOCDS ---
Physician Documentation [facility] Name: Lizzy Bray Age: 81 yrs Sex: Female : 1935 Arrival Date: 12/12/2016 Time: 11:13 Bed 6 Private MD: Tiffany Muñiz ANP Disposition: 12/12 13:47 Critical Care: Critical care not applicable. pc Disposition: 12/12/16 13:53 Hospitalization ordered by Mathew Amado for Inpatient Admission. Preliminary diagnosis are Acute embolism and thrombosis of other specified deep vein of right lower extremity, Postprocedural hemorrhage and hematoma of a musculoskeletal structure following a musculoskeletal system procedure, Chronic leukemia of unspecified cell type. - Bed requested for 4 [place]. - Status is Inpatient Admission. ttb - Condition is Stable. - Problem is new. - Symptoms are unchanged. HPI: 12:16 This 81 yrs old Female presents to ER via Ambulance with complaints of Knee pc Pain. 12:16 The history is obtained from the patient. She is 9 days s/p right TKR. She has been pc having swelling in her leg for 2-3 days and now complains of severe pain with any ROM of the knee. She denies any chest pain or SOB. She denies any skin color changes to her RLE. She denies any fevers or chills. She is on Coumadin and her INR was "good" 3 days ago. The patient has not experienced similar symptoms in the past. The patient has been recently seen by Dr. Jacques. Historical: - Allergies: rotuxin; PENICILLINS; ofatumumab; Doxycycline; chemo drugs; Avelox; - Home Meds: 1. Imbruvica 140 mg oral cap once daily off until 12/15/16 2. Klor-Con M20 20 mEq Oral TbTQ 1 tab once daily (Last dose: 12/12/2016 07:00) 3. levothyroxine 75 mcg Oral cap 1 cap once daily (Last dose: 12/12/2016 07:00) 4. Vitamin D Oral 2000 unit twice a day (Last dose: 12/12/2016 07:00) 5. warfarin 4 mg oral tab 1 tab once daily 5mg , Saturday : 4mg every other day. (Last dose: 12/11/2016 18:00) 6. Percocet 5-325 mg Oral tab 2 tabs every 4 hours for Pain (Last dose: 12/12/2016 08:00) 7. Vitamin C Unknown oral daily (Last dose: 12/12/2016 07:00) 8. Magnesium Oxide Oral daily (Last dose: 12/12/2016 07:00) - PMHx: Leukemia; Hypothyroidism; - PSHx: Hysterectomy; Appendectomy; Cataract Surgery- Bilateral; right knee arthroplasy; - The history from nurses notes was reviewed: and I agree with what is documented. - Social history: Smoking status: Patient states was never smoker of tobacco. Patient/guardian denies using alcohol, street drugs, No barriers to communication noted, The patient speaks fluent [place], Speaks appropriately for age. - Family history: Not pertinent. - : The pt / caregiver states he / she is on anticoagulants: coumadin. Home medication list is obtained from the patient. - Hospitalizations: : No recent hospitalization is reported. - Exposure Risk Screening:: None identified. - Immunization history:: All immunizations up-to-date. - Social history:: the patient is a non-smoker, the patient does not drink alcohol. ROS: 12:16 All systems are negative except as listed. pc Exam: 12:16 General Appearance: alert, the patient is in moderate distress. pc 12:16 EENT: normal eye inspection, ears, nose and throat normal, pharynx normal, mucous membranes moist 12:16 Neck: The exam reveals no acute abnormalities. ROM is normal and painless. No nuchal rigidity is noted.. 12:16 Respiratory: no respiratory distress, normal breath sounds. 12:16 CVS: regular pulse rate, regular rhythm, normal S1 and S2, no murmurs, strong peripheral pulses. 12:16 Abdomen: soft, non-tender, no organomegaly, normal bowel sounds. 12:16 Back: normal inspection. 12:16 Skin: skin color is normal, warm, dry. 12:16 Extremities: grossly normal except: noted in the right leg: grossly swollen from thigh to foot. Negative Venecia's. Calf nontender. Knee has a bandage in place with a few punctate areas of drainage noted. No erythema of skin noted. Any ROM is met with severe pain. Pedal pulse are normal and the extremity is warm to touch. No sensory changes. 12:16 Neuro: oriented x 3, cranial nerves normal as tested, no motor deficits, no sensory deficits. Vital Signs: 11:25 BP 169 / 74; Pulse 82; Resp 20; Pulse Ox 99% on R/A; Weight 78.02 kg / 172 lbs; Height ttb 5 ft. 2 in. (157.48 cm) (M); Pain 10/10; 12:03 Temp 98.5(O); jlf 13:00 BP 152 / 66 (auto/); ttb 13:01 Pulse 76 MON; Resp 18 S; Pulse Ox 96% on R/A; Pain 6/10; ttb 15:14 BP 134 / 62; Pulse 78; Resp 18; Temp 98.6(O); Pulse Ox 95% on R/A; Pain 5/10; mcp 11:25 Body Mass Index 31.46 (78.02 kg, 157.48 cm) ttb MDM: 12:00 IV Saline Lock ordered. pc 12:00 morphine 4 mg IVP once ordered. pc 12:00 Ondansetron 4 mg IVP once ordered. pc 12:01 CBC with Diff Ordered. EDMS 12:01 MED Profile Ordered. EDMS 12:01 Pt & Aptt Ordered. EDMS 12:01 ESR Ordered. EDMS 12:01 C Reactive Protein Ordered. EDMS 12:01 DVT US Lower Ordered. EDMS 12:16 Differential Diagnosis: DVT, infected hardware. Plan: labs, analgesia, imaging. pc 12:31 DIFFERENTIAL NO CHARGE Ordered. EDMS 13:03 CBC with Diff Reviewed. pc 13:03 MED Profile Reviewed. pc 13:03 Pt & Aptt Reviewed. pc 13:03 ESR Reviewed. pc 13:03 C Reactive Protein Reviewed. pc 13:03 PLATELET ESTIMATE Reviewed. pc 13:04 Chest, 1 View Ordered. EDMS 13:33 BED REQUEST+ADM ordered. EDMS 13:47 Data reviewed: old medical records, vital signs, nurses notes, lab test results, all pc radiology studies and available results. Test interpretation: LAB - all labs as ordered have been reviewed, interpreted and considered in the overall management of the clinical presentation; X-RAY - interpreted by dc, 1 view chest no acute disease. The patient has been re-examined and re-evaluated. There is no appreciated change of the patient's symptoms at this time. Physician consultation: Dr. Jeremy Jacques regarding patient's condition, and will see patient in inpatient room. 13:47 Test interpretation: Ultrasound - interpreted by Radiologist, Extremity Lower Right DVT pc in popliteal vein, 1cm hematoma behind knee. Physician consultation: Dr. Mathew Amado regarding admission, and will see patient in ED. Disposition: The historical points, examination findings, and any diagnostic results supporting the provided diagnosis, were discussed with the patient or legal guardian. The need for further work-up and/or treatment in the hospital was explained. 14:27 Admission / Observation Status ordered. EDMS 14:30 REGULAR DIET ordered. EDMS 14:48 MAGNESIUM LEVEL Ordered. EDMS 14:57 Financial registration complete. mm15 15:14 [facility] [place] was scanned into [employer] and attached to record. mm15 15:41 oxyCODONE-acetaminophen 5 mg-325 mg 2 tabs PO once; admission order ordered. ttb Administered Medications: 12:28 Drug: Ondansetron 4 mg [ondansetron HCl 2 mg/mL intravenous solution (2 mL)] Route: ttb IVP; Site: right antecubital; 12:32 Drug: morphine 4 mg [morphine 4 mg/mL intravenous cartridge (1 mL)] Route: IVP; Site: ttb right antecubital; 15:41 Drug: oxyCODONE-acetaminophen 2 tabs [oxycodone-acetaminophen 5 mg-325 mg tablet (2 ttb tabs)] Route: PO; Signatures: Dispatcher [employer] EDCA Gregory Cameron MD MD pc Conner, Teresa, RN RN ttb Leigh Love mm15 Nba Low RN RN mts The chart was reviewed and I authenticate all verbal orders and agree with the evaluation and treatment provided.Corrections: (The following items were deleted from the chart) 14:49 14:42 MAGNESIUM LEVEL ordered. EDMS EDMS Attachments: 15:14 [facility] [place] mm15 Chart Complete MTDD
--- NOTE | 2016-12-14 16:44 | EDDOCDS ---
Nurse's Notes [facility] Name: Lizzy Bray Age: 81 yrs Sex: Female : 1935 Arrival Date: 12/12/2016 Time: 11:13 Bed 6 Private MD: Tiffany Muñiz ANP Diagnosis: Acute embolism and thrombosis of other specified deep vein of right lower extremity;Postprocedural hemorrhage and hematoma of a musculoskeletal structure following a musculoskeletal system procedure;Chronic leukemia of unspecified cell type Presentation: 12/12 11:17 Presenting complaint: EMS states: Dr. Jacques did right knee arthroplasty 12/03/16-- ttb severe pain and swelling. No ROM d/t pain and swelling. Apt today at 1300. Pain increased last night -- pain was under control until then. Working with PT when pain started to increase. No injury noted. Adult Sepsis Screening: The patient does not have new or worsening altered mentation. Patient's respiratory rate is less than 22. Systolic blood pressure is greater than 100. Patient has a qSOFA score of 0- Negative Sepsis Screen. Suicide/Homicide risk assessment- the patient denies having any suicidal and/or homicidal ideations and does not present with any other emotional, behavioral or mental health complaints. Status: Patient is not a bridal service sales and management or dependent. Transition of care: patient was not received from another setting of care. 11:17 Acuity: MAGO Level 3 ttb 11:17 Method Of Arrival: Ambulance ttb Triage Assessment: 11:30 General: Appears distressed, obese, uncomfortable, well nourished, well groomed, ttb Behavior is anxious, appropriate for age, cooperative, pleasant, restless. Pain: Location: right knee 10/10. Neurological: Level of Consciousness is awake, alert. Cardiovascular: Chest pain is denied. Respiratory: No deficits noted. Airway is patent Denies cough, shortness of breath. GI: Denies nausea, vomiting, pain. Derm: Skin is normal. Musculoskeletal: Range of motion limited in right knee Swelling present in lateral aspect of right knee, posterior aspect of right knee, medial aspect of right knee and right knee. Injury Description: surgery to right knee, no fall noted at home, just doing prescribed physical therapy. Historical: - Allergies: rotuxin; PENICILLINS; ofatumumab; Doxycycline; chemo drugs; Avelox; - Home Meds: 1. Imbruvica 140 mg oral cap once daily off until 12/15/16 2. Klor-Con M20 20 mEq Oral TbTQ 1 tab once daily (Last dose: 12/12/2016 07:00) 3. levothyroxine 75 mcg Oral cap 1 cap once daily (Last dose: 12/12/2016 07:00) 4. Vitamin D Oral 2000 unit twice a day (Last dose: 12/12/2016 07:00) 5. warfarin 4 mg oral tab 1 tab once daily 5mg , Saturday : 4mg every other day. (Last dose: 12/11/2016 18:00) 6. Percocet 5-325 mg Oral tab 2 tabs every 4 hours for Pain (Last dose: 12/12/2016 08:00) 7. Vitamin C Unknown oral daily (Last dose: 12/12/2016 07:00) 8. Magnesium Oxide Oral daily (Last dose: 12/12/2016 07:00) - PMHx: Leukemia; Hypothyroidism; - PSHx: Hysterectomy; Appendectomy; Cataract Surgery- Bilateral; right knee arthroplasy; - The history from nurses notes was reviewed: and I agree with what is documented. - Social history: Smoking status: Patient states was never smoker of tobacco. Patient/guardian denies using alcohol, street drugs, No barriers to communication noted, The patient speaks fluent Kinyarwanda, Speaks appropriately for age. - Family history: Not pertinent. - : The pt / caregiver states he / she is on anticoagulants: coumadin. Home medication list is obtained from the patient. - Hospitalizations: : No recent hospitalization is reported. - Exposure Risk Screening:: None identified. - Immunization history:: All immunizations up-to-date. - Social history:: the patient is a non-smoker, the patient does not drink alcohol. Screenin:37 Screening information is obtained from the patient. Fall risk: At risk due to gait ttb disturbance, The following interventions are performed due to a positive Fall Risk Screen: Fall Risk is added to Special Handling on the patient Summary Screen. A Fall Risk Bracelet was applied to the patient. Side Rails are placed in the up position. A Call Gonzalez is given with instruction to call for help when getting out of bed. Assistance ADL's: Requires assistance with housework, assistance is provided by family members. Abuse/DV Screen: The patient / caregiver reports he/she is: not in a situation that causes fear, pain or injury. Nutritional screening: No deficits noted. Advance Directives: Currently, there is no health care proxy. home support is adequate. Assessment: 11:37 General: see triage assessment. Pt given ice and positioned for comfort. Awaiting MD.. ttb 12:00 Reassessment: Patient appears in no apparent distress at this time. Patient states ttb feeling better. Patient states symptoms have improved. pt states she is more comfortable now. Awaiting US.. 12:40 Reassessment: Patient appears in no apparent distress at this time. Patient states ttb feeling better. Patient states symptoms have improved. meds given. Pt taken to US. at bedside. Pain improved since arrival. NAD noted.. 13:00 General: pt returned from US. Resting on stretcher. NAD noted.. ttb 13:03 Adult Sepsis Screening: The patient does not have new or worsening altered mentation. ttb Patient's respiratory rate is less than 22. Systolic blood pressure is greater than 100. Patient has a qSOFA score of 0- Negative Sepsis Screen. 14:00 General: Appears in no apparent distress, comfortable, Behavior is appropriate for age, ttb cooperative, pleasant. Pain: Location: right knee. Respiratory: Airway is patent Respiratory effort is even, unlabored, Denies cough, shortness of breath. Derm: Skin is normal, pale. 15:00 Reassessment: Patient appears in no apparent distress at this time. Patient states ttb feeling better. Patient states symptoms have improved. pt resting on stretcher awaiting transfer to room. at bedside.. General: Appears in no apparent distress, comfortable. Neurological: Level of Consciousness is awake, alert. Cardiovascular: Chest pain is denied. Respiratory: No deficits noted. Airway is patent Respiratory effort is even, unlabored, Denies cough, shortness of breath. Derm: Skin is normal, pale. 15:00 Adult Sepsis Screening: The patient does not have new or worsening altered mentation. ttb Patient's respiratory rate is less than 22. Systolic blood pressure is greater than 100. Patient has a qSOFA score of 0- Negative Sepsis Screen. 15:31 General: floor states they need 10 min and will accept pt.. ttb 15:34 General: Appears in no apparent distress, comfortable. Neurological: Level of ttb Consciousness is awake, alert. Cardiovascular: Chest pain is denied. Respiratory: Airway is patent Respiratory effort is even, unlabored, Denies cough, shortness of breath. GI: Denies nausea, vomiting. Derm: Skin is normal. 15:42 General: pt given pain meds per admission orders with crackers. Ice to right knee. ttb at bedside. Pt transported to floor at this time. . Vital Signs: 11:25 BP 169 / 74; Pulse 82; Resp 20; Pulse Ox 99% on R/A; Weight 78.02 kg; Height 5 ft. 2 ttb in. (157.48 cm) (M); Pain 10/10; 12:03 Temp 98.5(O); jlf 13:00 BP 152 / 66 (auto/); ttb 13:01 Pulse 76 MON; Resp 18 S; Pulse Ox 96% on R/A; Pain 6/10; ttb 15:14 BP 134 / 62; Pulse 78; Resp 18; Temp 98.6(O); Pulse Ox 95% on R/A; Pain 5/10; mcp 11:25 Body Mass Index 31.46 (78.02 kg, 157.48 cm) ttb Vitals: 11:25 Log In Time N/A - ambulance arrival. ttb ED Course: 11:15 Patient visited by Tiffany Parikh, Inspector Golf Ball. lbd 11:15 Tiffany Muñiz is Private Physician. lbd 11:15 Patient moved to Waiting lbd 11:16 Nida Monterroso,MAGGIE is Primary Nurse. lbd 11:16 Patient moved to 6 lbd 11:20 Triage Initiated ttb 11:32 Patient visited by Carmen Templeton RN. ttb 11:35 Gregory Cameron MD is Attending Physician. pc 11:37 The patient / caregiver is instructed regarding the plan of care and ED course. Patient ttb has correct armband on for positive identification. Placed in gown. Bed in low position. Call light in reach. Side rails up X2. Pulse ox on. 11:37 Patient's right legelevated and ice pack applied. ttb 11:39 Patient visited by Carmen Templeton RN. ttb 11:59 Patient visited by Gregory Cameron MD. pc 12:02 Patient visited by Patricia Dave PCA. jlf 12:03 Patient visited by Patricia Dave PCA. jlf 12:07 C Reactive Protein Sent. ttb 12:07 ESR Sent. ttb 12:07 Pt & Aptt Sent. ttb 12:07 MED Profile Sent. ttb 12:07 CBC with Diff Sent. ttb 12:08 Patient visited by Carmen Templeton RN. ttb 12:08 Inserted peripheral IV: 20gauge IV in right antecubital area and blood collected. ttb Patient tolerated the procedure well. Labs drawn. (by ED staff). 12:31 DIFFERENTIAL NO CHARGE Sent. ttb 12:38 Patient moved to Ultrasound sm5 12:40 Patient visited by Carmen Templeton RN. ttb 13:03 Patient visited by Carmen Templeton RN. ttb 13:06 Patient moved to 6 sm5 13:38 Patient visited by Patricia Dave PCA. jlf 13:53 Mathew Amado is Hospitalizing Provider. pc 14:06 DVT US Lower Returned. EDMS 15:14 [facility] [place] Payment Agreement was scanned into [email or web address] and attached to record. mm15 15:20 Patient visited by Carmen Templeton RN. ttb 15:20 Patient visited by Carmen Templeton RN. ttb 15:34 No procedures done that require assistance. ttb Administered Medications: 12:28 Drug: Ondansetron 4 mg [ondansetron HCl 2 mg/mL intravenous solution (2 mL)] Route: ttb IVP; Site: right antecubital; 12:32 Drug: morphine 4 mg [morphine 4 mg/mL intravenous cartridge (1 mL)] Route: IVP; Site: ttb right antecubital; 15:41 Drug: oxyCODONE-acetaminophen 2 tabs [oxycodone-acetaminophen 5 mg-325 mg tablet (2 ttb tabs)] Route: PO; Order Results: Lab Order: CBC with Diff; SPEC'M 12/12/16 12:06 Test: WHITE BLOOD COUNT; Value: 45.3; Range: 4.0-10.0; Abnormal: Above upper panic limits; Units: K/mm3; Status: F Test: RED BLOOD COUNT; Value: 2.48; Range: 4.00-5.40; Abnormal: Below low normal; Units: M/mm3; Status: F Test: HEMOGLOBIN; Value: 7.5; Range: 12.0-16.0; Abnormal: Below low normal; Units: g/dl; Status: F Test: HEMATOCRIT; Value: 23.8; Range: 36.0-47.0; Abnormal: Below low normal; Units: %; Status: F Test: MEAN CORPUSCULAR VOLUME; Value: 95.9; Range: 80.0-96.0; Units: fl; Status: F Test: MEAN CORPUSCULAR HEMOGLOBIN; Value: 30.4; Range: 27.0-33.0; Units: pg; Status: F Test: MEAN CORPUSCULAR HGB CONC; Value: 31.7; Range: 32.0-36.5; Abnormal: Below low normal; Units: g/dl; Status: F Test: RED CELL DISTRIBUTION WIDTH; Value: 16.1; Range: 11.5-14.5; Abnormal: Above high normal; Units: %; Status: F Test: PLATELET COUNT, AUTOMATED; Value: 251; Range: 150-450; Units: k/mm3; Status: F Test Note: ; A Pathologist review of this differential can help in the evaluation of a differential diagnosis. Please order a Pathologist Review (PATHREVCOMP) if deemed necessary. Results are subject to change if a Pathologist Review is performed.\T\ Patient : 1935 Test: NEUTROPHILS; Value: 35; Range: 35-75; Units: %; Status: F Test: BANDS; Value: 5; Range: < 11; Units: %; Status: F Test: LYMPHOCYTES; Value: 36; Range: 16-52; Units: %; Status: F Test: EOSINOPHILS; Value: 4; Range: 0-5; Units: %; Status: F Test: METAMYELOCYTES; Value: 2; Range: 0-0; Abnormal: Above high normal; Units: %; Status: F Test: MYELOCYTES; Value: 6; Range: 0-0; Abnormal: Above high normal; Units: %; Status: F Test: ATYPICAL LYMPH; Value: 12; Range: 0-5; Abnormal: Above high normal; Units: %; Status: F Test: POLYCHROMASIA; Value: 1+; Status: F Test: POIKILOCYTOSIS; Value: 1+; Status: F Test: SMUDGE CELLS; Value: 2+; Status: F Lab Order: MED Profile; SPEC'M 12/12/16 12:06 Test: GLUCOSE, FASTING; Value: 105; Range: 83-110; Units: MG/DL; Status: F Test: BLOOD UREA NITROGEN; Value: 28; Range: 7-18; Abnormal: Above high normal; Units: MG/DL; Status: F Test: CREATININE FOR GFR; Value: 1.26; Range: 0.55-1.02; Abnormal: Above high normal; Units: MG/DL; Status: F Test: GLOMERULAR FILTRATION RATE; Value: 43.5; Range: >32; Status: F Test: SODIUM LEVEL; Value: 132; Range: 136-145; Abnormal: Below low normal; Units: MEQ/L; Status: F Test: POTASSIUM SERUM; Value: 5.1; Range: 3.5-5.1; Units: MEQ/L; Status: F Test: CHLORIDE LEVEL; Value: 98; Range: 98-107; Units: MEQ/L; Status: F Test: CARBON DIOXIDE LEVEL; Value: 23; Range: 21-32; Units: MEQ/L; Status: F Test: ANION GAP; Value: 11; Range: 8-16; Units: MEQ/L; Status: F Test: CALCIUM LEVEL; Value: 8.0; Range: 8.8-10.2; Abnormal: Below low normal; Units: MG/DL; Status: F Test Note: ; Units are mL/min/1.73 m2 Chronic Kidney Disease Staging per NKF: Stage I & II GFR >=60 Normal to Mildly Decreased Stage III GFR 30-59 Moderately Decreased Stage IV GFR 15-29 Severely Decreased Stage V GFR <15 Very Little GFR Left ESRD GFR <15 on [employer] Lab Order: Pt & Aptt; SPEC'M 12/12/16 12:06 Test: PROTHROMBIN TIME; Value: 35.2; Range: 12.3-14.5; Abnormal: Above high normal; Units: SECONDS; Status: F Test: INR; Value: 3.51; Status: F Test: PARTIAL THROMBOPLASTIN TIME; Value: 34.3; Range: 26.6-37.1; Units: SECONDS; Status: F Test Note: ; THERAPUTIC HUMAN INR VALUES INDICATIONS NORMAL RANGES PROPHYLAXIS/TREATMENT OF: VENOUS THROMBOSIS 2.0-3.0 PULMONARY EMBOLISM 2.0-3.0 PREVENTION OF SYSTEMIC EMBOLISM FROM: TISSUE HEART VALVES 2.0-3.0 ACUTE MYOCARDIAL INFARCTION 2.0-3.0 VALVULAR HEART DISEASE 2.0-3.0 ATRIAL FIBRILLATION 2.0-3.0 MECHANICAL VALVES(HIGH RISK) 2.5-3.5 RECURRENT MYOCARDIAL INFARCTION 2.5-3.5 Lab Order: ESR; [facility] 12/12/16 12:06 Test: ERYTHROCYTE SEDIMENTATION RATE; Value: 51; Range: 0-30; Abnormal: Above high normal; Units: mm/hr; Status: F Lab Order: C Reactive Protein; [facility] 12/12/16 12:06 Test: C REACTIVE PROTEIN QUANTITATIV; Value: 3.13; Range: 0.00-0.30; Abnormal: Above high normal; Units: MG/DL; Status: F Lab Order: PLATELET ESTIMATE; [facility] 12/12/16 12:06 Test: PLATELET ESTIMATE; Value: NORMAL; Range: NORMAL; Status: F Lab Order: MAGNESIUM LEVEL; [facility] 12/12/16 12:06 Test: MAGNESIUM LEVEL; Value: 2.7; Range: 1.8-2.4; Abnormal: Above high normal; Units: MG/DL; Status: F Radiology Order: DVT US Lower Test: DVT US Lower REASON FOR EXAMINATION: Deformity/Swelling; RIGHT LOWER EXTREMITY DUPLEX VENOUS ULTRASOUND:; ; HISTORY: Patient status post right knee replacement surgery 9 days ago with; deformity and swelling. Question venous thrombosis.; ; FINDINGS: There is occlusive thrombosis of the right popliteal vein with; echogenic material and lack of compressibility and lack of Doppler flow. The; femoral vein and common femoral vein and greater saphenous vein segments are; anechoic and compressible and appear patent. There is a fluid collection in the; distal five posteriorly measuring 10.7 x 2.8 x 6.4 cm. This is posterior to the; distal femur.; ; IMPRESSION:; 1. There is occlusive deep venous thrombosis involving the right popliteal; vein.; 2. There is a 10 cm fluid collection above the level of the knee and posterior; to the distal femur consistent with hematoma.; ; ; ; ; Unreviewed; Outcome: 13:53 Decision to Hospitalize by Provider. pc 15:34 Discharge Assessment: Patient awake, alert and oriented x 3. No cognitive and/or ttb functional deficits noted. Patient verbalized understanding of disposition instructions. Patient awake and alert. patient administered narcotics - yes. Patient was admitted to the hospital or transferred to another facility. The following High Risk Discharge criteria are identified: Yes, admit. Admitted to Med/Surg accompanied by tech, family with patient, via stretcher, with chart. Condition: stable. No special radiology studies were completed. Admission hand-off: Report called to [facility] Report Faxed Fax receipt verified by [facility]. Property :Personal belongings accompany Pt. 15:42 Patient left the ED. ttb Signatures: Dispatcher [employer] EDMS Gregory Cameron MD MD pc Daly, Linda, Inspector Golf Ball Unit lbd Tiny Juarez RN RN Carla Pearson sm5 Carmen Templeton RN RN ttb Leigh Love mm15 Patricia Dave, ANN CAREER DEVELOPER jlf Corrections: (The following items were deleted from the chart) 11:37 11:17 Presenting complaint: EMS states: Dr. Jacques did right knee arthroplasty 12/03/16-- ttb severe pain and swelling. No ROM d/t pain and swelling. Apt today at 1300. Pain increased last night -- pain was under control until then. Working with PT when pain started to increase. ttb Chart Complete MTDD
== END 2016-12-13 22:58 | disposition short-term general hospital (02) | DRG 920 ==
LOC: M ED 11:13 → M ED INP 14:25 → M MSPAV 15:45
PROVIDERS: ADMIT Internal Medicine; ATTEND Hospitalist
PROC: 30233N1 Transfusion of Nonautologous Red Blood Cells into Peripheral Vein, Percutaneous Approach (ICD-10-PCS; principal; 2016-12-13)
DX: M96.840 Postprocedural hematoma of a musculoskeletal structure following a musculoskeletal system procedure (principal); C91.10 Chronic lymphocytic leukemia of B-cell type not having achieved remission; D62 Acute posthemorrhagic anemia; I82.431 Acute embolism and thrombosis of right popliteal vein; E03.9 Hypothyroidism, unspecified; E83.42 Hypomagnesemia; D72.829 Elevated white blood cell count, unspecified; N18.9 Chronic kidney disease, unspecified; E87.6 Hypokalemia; Z79.01 Long term (current) use of anticoagulants; Z86.711 Personal history of pulmonary embolism; Z96.651 Presence of right artificial knee joint; Z79.899 Other long term (current) drug therapy; Z90.710 Acquired absence of both cervix and uterus; Z88.0 Allergy status to penicillin; Z88.8 Allergy status to other drugs, medicaments and biological substances; Z88.1 Allergy status to other antibiotic agents; T45.515A Adverse effect of anticoagulants, initial encounter

== ENCOUNTER 2016-12-26 12:56 | Emergency (ER) | payer MEDICARE ==
[~2016-12-26 12:56] MED LIST changes: +OXYC1TAB23 PO
[2016-12-26] MEDS ORDERED: traMADol 50 MG TAB As Ordered ONE (14:11)
--- NOTE | 2016-12-26 14:21 | EDDOCDS ---
Nurse's Notes [facility] Name: Lizzy Bray Age: 81 yrs Sex: Female : 1935 Arrival Date: 12/26/2016 Time: 12:56 Bed PD Private MD: Tiffany Muñiz ANP Diagnosis: Pain in right lower leg;Other chronic postprocedural pain Presentation: 12/26 13:02 Presenting complaint: Patient states: Right knee ongoing since total knee replacement jo3 December 03. Reports no significant change in appearance of knee but the pain is relentless. Pt has been seen by Dr Jacques (who did the surgery), and was deemed okay but the pain is not going away. Pt reports that she has been seen in the ED several times for this issue. Adult Sepsis Screening: The patient does not have new or worsening altered mentation. Patient's respiratory rate is less than 22. Systolic blood pressure is greater than 100. Patient has a qSOFA score of 0- Negative Sepsis Screen. Suicide/Homicide risk assessment- the patient denies having any suicidal and/or homicidal ideations and does not present with any other emotional, behavioral or mental health complaints. Status: Patient is not a home restoration service cleaner or dependent. Transition of care: patient was not received from another setting of care. 13:02 Acuity: MAGO Level 4 jo3 13:02 Method Of Arrival: Walkin/Carried/Asstd jo3 Triage Assessment: 13:07 General: Appears in no apparent distress, Behavior is appropriate for age, cooperative. jo3 Pain: Pain currently is 7 out of 10 on a pain scale. Neurological: Level of Consciousness is awake, alert, Oriented to person, place, time. Respiratory: No deficits noted. Airway is patent Respiratory effort is even, unlabored. Historical: - Allergies: Avelox; chemo drugs; Doxycycline; ofatumumab; PENICILLINS; rotuxin; - Home Meds: 1. Imbruvica 140 mg oral cap once daily Not taking at this time 2. Klor-Con M20 20 mEq Oral TbTQ 1 tab once daily 3. levothyroxine 75 mcg Oral cap 1 cap once daily 4. Magnesium Oxide Oral daily 5. Percocet 5-325 mg Oral tab 1 tab every 8 hours for Pain (Last dose: 12/26/2016 07:00) 6. Vitamin C Oral daily 7. Vitamin D Oral 2000 unit twice a day 8. Lovenox 80 mg/0.8 mL Sub-Q syrg every 12 hours - PMHx: Hypothyroidism; Leukemia; PE; - PSHx: Hysterectomy; Appendectomy; Cataract Surgery- Bilateral; right knee replacement; - Social history: Smoking status: Patient states was never smoker of tobacco. No barriers to communication noted, The patient speaks fluent Greek, Speaks appropriately for age. - Family history: Not pertinent. - : The pt / caregiver states he / she is on anticoagulants: coumadin. Home medication list is obtained from the patient. - Exposure Risk Screening:: None identified. Screenin:17 Screening information is obtained from the patient. Fall risk: At risk due to age, The jf3 following interventions are performed due to a positive Fall Risk Screen: Fall Risk is added to Special Handling on the patient Summary Screen. A Fall Risk Bracelet was applied to the patient. Side Rails are placed in the up position. A Call Gonzalez is given with instruction to call for help when getting out of bed. Fall Alert bracelet is placed on the patient. Assistance ADL's: requires no assistance with activities of daily living. Abuse/DV Screen: The patient / caregiver reports he/she is: not in a situation that causes fear, pain or injury. Nutritional screening: No deficits noted. Advance Directives: There is no active DNR order. home support is adequate. 14:19 Fall Risk. jf3 Assessment: 14:17 General: Appears uncomfortable, Behavior is cooperative. Pain: Location: right knee jf3 Pain currently is 7 out of 10 on a pain scale. Neurological: Level of Consciousness is awake, alert, Oriented to person, place, time. Cardiovascular: Capillary refill < 3 seconds Chest pain is denied. Respiratory: Airway is patent Respiratory effort is even, unlabored, Respiratory pattern is regular, symmetrical. Derm: Swollen area noted on right knee. Vital Signs: 12:59 BP 151 / 62; Pulse 94; Resp 18 S; Temp 95.9(O); Pulse Ox 96% on R/A; Weight 78.02 kg gr2 (R); Height 5 ft. 2 in. (157.48 cm) (R); Pain 7/10; 14:17 BP 127 / 58; Pulse 92; Resp 18; Temp 99.4(T); Pulse Ox 98% on R/A; Pain 7/10; jf3 12:59 Body Mass Index 31.46 (78.02 kg, 157.48 cm) gr2 Vitals: 12:59 Log In Time: December 26, 2016 at 12:59. gr2 ED Course: 12:59 Patient visited by Gerardo Darby. gr2 12:59 DEE DECKER RN is Private Physician. gr2 12:59 Tiffany Muñiz is Private Physician. gr2 12:59 Patient moved to Waiting gr2 13:01 Patient visited by Gerardo Darby. gr2 13:01 Patient moved to Pre RCE gr2 13:04 Triage Initiated jo3 13:08 Patient visited by Maine Williamson RN. jo3 13:20 Patient moved to Triage 1 jf3 13:40 Agustin Gomez PA is PHCP. btw 13:40 Gregory Cameron MD is Attending Physician. btw 13:40 Patient visited by Agustin Gomez PA. btw 13:56 Patient moved to PD ck1 14:07 Jeremy Jacques is Referral Physician. btw 14:19 The patient / caregiver is instructed regarding the plan of care and ED course. jf3 14:19 No IV's were initiated during this patient's visit. No procedures done that require jf3 assistance. Administered Medications: 14:15 Drug: traMADol 50 mg [tramadol 50 mg tablet (1 tabs)] Route: PO; jf3 Order Results: There are currently no results for this order. Outcome: 14:07 Discharge ordered by Provider. btw 14:19 Discharge Assessment: Patient awake, alert and oriented x 3. No cognitive and/or jf3 functional deficits noted. Patient verbalized understanding of disposition instructions. patient administered narcotics - yes. Pt provided with safe discharge. The following High Risk Discharge criteria are identified: None. Discharged to Dr Jacques's office. Condition: stable. Discharge instructions given to patient, significant other, Instructed on discharge instructions, follow up and referral plans. Demonstrated understanding of instructions, Pt was receptive of discharge instructions/ teaching. No special radiology studies were completed. Property :Personal belongings accompany Pt. 14:20 Patient left the ED. jf3 Signatures: Nida Monterroso RN RN ck1 Maine Williamson,RN RN jo3 Agustin Gomez PA PA btw Gerardo Darby gr2 Jaydon Whitman,RN RN jf3 MTDD
--- NOTE | 2016-12-26 14:21 | EDDOCDS ---
Physician Documentation [facility] Name: Lizzy Bray Age: 81 yrs Sex: Female : 1935 Arrival Date: 12/26/2016 Time: 12:56 Bed PD Private MD: Tiffany Muñiz ANP Disposition: 12/26/16 14:07 Discharged to Home/Self Care. Impression: Pain in right lower leg, Other chronic postprocedural pain. - Condition is Stable. - Discharge Instructions: Musculoskeletal Pain. - Medication Reconciliation, Local Pharmacy Hours form. - Follow up: Jeremy Jacques; When: Upon discharge from the Emergency Department; Reason: Further diagnostic work-up, Recheck today's complaints, Continuance of care. - Problem is an ongoing problem. - Symptoms are unchanged. Historical: - Allergies: Avelox; chemo drugs; Doxycycline; ofatumumab; PENICILLINS; rotuxin; - Home Meds: 1. Imbruvica 140 mg oral cap once daily Not taking at this time 2. Klor-Con M20 20 mEq Oral TbTQ 1 tab once daily 3. levothyroxine 75 mcg Oral cap 1 cap once daily 4. Magnesium Oxide Oral daily 5. Percocet 5-325 mg Oral tab 1 tab every 8 hours for Pain (Last dose: 12/26/2016 07:00) 6. Vitamin C Oral daily 7. Vitamin D Oral 2000 unit twice a day 8. Lovenox 80 mg/0.8 mL Sub-Q syrg every 12 hours - PMHx: Hypothyroidism; Leukemia; PE; - PSHx: Hysterectomy; Appendectomy; Cataract Surgery- Bilateral; right knee replacement; - Social history: Smoking status: Patient states was never smoker of tobacco. No barriers to communication noted, The patient speaks fluent Hong Konger, Speaks appropriately for age. - Family history: Not pertinent. - : The pt / caregiver states he / she is on anticoagulants: coumadin. Home medication list is obtained from the patient. - Exposure Risk Screening:: None identified. Vital Signs: 12/26 12:59 BP 151 / 62; Pulse 94; Resp 18 S; Temp 95.9(O); Pulse Ox 96% on R/A; Weight 78.02 kg / gr2 172 lbs (R); Height 5 ft. 2 in. (157.48 cm) (R); Pain 7; 14:17 BP 127 / 58; Pulse 92; Resp 18; Temp 99.4(T); Pulse Ox 98% on R/A; Pain 7; jf3 12:59 Body Mass Index 31.46 (78.02 kg, 157.48 cm) gr2 MDM: 13:47 Financial registration complete. 14:08 traMADol 50 mg PO once ordered. btw Administered Medications: 14:15 Drug: traMADol 50 mg [tramadol 50 mg tablet (1 tabs)] Route: PO; jf3 Signatures: Lorelei Talley, Reg Reg lg [place] Williamson,RN RN jo3 Agustin Gomez PA PA btw Jaydon Whitman,RN RN jf3 MTDD
--- NOTE | 2016-12-28 15:22 | EDDOCDS ---
Physician Documentation [facility] Name: Lizzy Bray Age: 81 yrs Sex: Female : 1935 Arrival Date: 12/26/2016 Time: 12:56 Bed PD Private MD: Tiffany Muñiz ANP Disposition: 12/26/16 14:07 Discharged to Home/Self Care. Impression: Pain in right lower leg, Other chronic postprocedural pain. - Condition is Stable. - Discharge Instructions: Musculoskeletal Pain. - Medication Reconciliation, Local Pharmacy Hours form. - Follow up: Jeremy Jacques; When: Upon discharge from the Emergency Department; Reason: Further diagnostic work-up, Recheck today's complaints, Continuance of care. - Problem is an ongoing problem. - Symptoms are unchanged. Historical: - Allergies: Avelox; chemo drugs; Doxycycline; ofatumumab; PENICILLINS; rotuxin; - Home Meds: 1. Imbruvica 140 mg oral cap once daily Not taking at this time 2. Klor-Con M20 20 mEq Oral TbTQ 1 tab once daily 3. levothyroxine 75 mcg Oral cap 1 cap once daily 4. Magnesium Oxide Oral daily 5. Percocet 5-325 mg Oral tab 1 tab every 8 hours for Pain (Last dose: 12/26/2016 07:00) 6. Vitamin C Oral daily 7. Vitamin D Oral 2000 unit twice a day 8. Lovenox 80 mg/0.8 mL Sub-Q syrg every 12 hours - PMHx: Hypothyroidism; Leukemia; PE; - PSHx: Hysterectomy; Appendectomy; Cataract Surgery- Bilateral; right knee replacement; - Social history: Smoking status: Patient states was never smoker of tobacco. No barriers to communication noted, The patient speaks fluent Panamanian, Speaks appropriately for age. - Family history: Not pertinent. - : The pt / caregiver states he / she is on anticoagulants: coumadin. Home medication list is obtained from the patient. - Exposure Risk Screening:: None identified. Vital Signs: 12/26 12:59 BP 151 / 62; Pulse 94; Resp 18 S; Temp 95.9(O); Pulse Ox 96% on R/A; Weight 78.02 kg / gr2 172 lbs (R); Height 5 ft. 2 in. (157.48 cm) (R); Pain 7/10; 14:17 BP 127 / 58; Pulse 92; Resp 18; Temp 99.4(T); Pulse Ox 98% on R/A; Pain 7/10; jf3 12:59 Body Mass Index 31.46 (78.02 kg, 157.48 cm) gr2 MDM: 13:47 Financial registration complete. lg 14:08 traMADol 50 mg PO once ordered. bt 15:39 [facility] Payment Agreement was scanned into [employer] and attached to record. lg 12/27 12:48 T-Sheet-- Draft Copy was scanned into [employer] and attached to record. gb Administered Medications: 12/26 14:15 Drug: traMADol 50 mg [tramadol 50 mg tablet (1 tabs)] Route: PO; jf3 Signatures: Mary Lou Rowe, Reg Reg gb Lorelei Talley, Reg Reg lg [place] Williamson,RN RN jo3 Agustin Gomez PA PA btw Jaydon Whitman,RN RN jf3 The chart was reviewed and I authenticate all verbal orders and agree with the evaluation and treatment provided.Attachments: 15:39 [facility] Payment Agreement 12/27 12:48 T-Sheet-- Draft Copy gb Chart Complete MTDD
--- NOTE | 2016-12-28 15:22 | EDDOCDS ---
Physician Documentation [facility] Name: Lizzy Bray Age: 81 yrs Sex: Female : 1935 Arrival Date: 12/26/2016 Time: 12:56 Bed PD Private MD: Tiffany Muñiz ANP Disposition: 12/26/16 14:07 Discharged to Home/Self Care. Impression: Pain in right lower leg, Other chronic postprocedural pain. - Condition is Stable. - Discharge Instructions: Musculoskeletal Pain. - Medication Reconciliation, Local Pharmacy Hours form. - Follow up: Jeremy Jacques; When: Upon discharge from the Emergency Department; Reason: Further diagnostic work-up, Recheck today's complaints, Continuance of care. - Problem is an ongoing problem. - Symptoms are unchanged. Historical: - Allergies: Avelox; chemo drugs; Doxycycline; ofatumumab; PENICILLINS; rotuxin; - Home Meds: 1. Imbruvica 140 mg oral cap once daily Not taking at this time 2. Klor-Con M20 20 mEq Oral TbTQ 1 tab once daily 3. levothyroxine 75 mcg Oral cap 1 cap once daily 4. Magnesium Oxide Oral daily 5. Percocet 5-325 mg Oral tab 1 tab every 8 hours for Pain (Last dose: 12/26/2016 07:00) 6. Vitamin C Oral daily 7. Vitamin D Oral 2000 unit twice a day 8. Lovenox 80 mg/0.8 mL Sub-Q syrg every 12 hours - PMHx: Hypothyroidism; Leukemia; PE; - PSHx: Hysterectomy; Appendectomy; Cataract Surgery- Bilateral; right knee replacement; - Social history: Smoking status: Patient states was never smoker of tobacco. No barriers to communication noted, The patient speaks fluent Iraqi, Speaks appropriately for age. - Family history: Not pertinent. - : The pt / caregiver states he / she is on anticoagulants: coumadin. Home medication list is obtained from the patient. - Exposure Risk Screening:: None identified. Vital Signs: 12/26 12:59 BP 151 / 62; Pulse 94; Resp 18 S; Temp 95.9(O); Pulse Ox 96% on R/A; Weight 78.02 kg / gr2 172 lbs (R); Height 5 ft. 2 in. (157.48 cm) (R); Pain 7/10; 14:17 BP 127 / 58; Pulse 92; Resp 18; Temp 99.4(T); Pulse Ox 98% on R/A; Pain 7/10; jf3 12:59 Body Mass Index 31.46 (78.02 kg, 157.48 cm) gr2 MDM: 13:47 Financial registration complete. lg 14:08 traMADol 50 mg PO once ordered. bt 15:39 [facility] Payment Agreement was scanned into [employer] and attached to record. lg 12/27 12:48 T-Sheet-- Draft Copy was scanned into [employer] and attached to record. gb Administered Medications: 12/26 14:15 Drug: traMADol 50 mg [tramadol 50 mg tablet (1 tabs)] Route: PO; jf3 Signatures: Mary Lou Rowe, Reg Reg gb Lorelei Talley, Reg Reg lg [place] Williamson,RN RN jo3 Agustin Gomez PA PA btw Jaydon Whitman,RN RN jf3 The chart was reviewed and I authenticate all verbal orders and agree with the evaluation and treatment provided.Attachments: 15:39 [facility] Payment Agreement 12/27 12:48 T-Sheet-- Draft Copy gb Chart Complete MTDD
--- NOTE | 2016-12-28 15:23 | EDDOCDS ---
Nurse's Notes [facility] Name: Lizzy Bray Age: 81 yrs Sex: Female : 1935 Arrival Date: 12/26/2016 Time: 12:56 Bed PD Private MD: Tiffany Muñiz ANP Diagnosis: Pain in right lower leg;Other chronic postprocedural pain Presentation: 12/26 13:02 Presenting complaint: Patient states: Right knee ongoing since total knee replacement jo3 December 03. Reports no significant change in appearance of knee but the pain is relentless. Pt has been seen by Dr Jacques (who did the surgery), and was deemed okay but the pain is not going away. Pt reports that she has been seen in the ED several times for this issue. Adult Sepsis Screening: The patient does not have new or worsening altered mentation. Patient's respiratory rate is less than 22. Systolic blood pressure is greater than 100. Patient has a qSOFA score of 0- Negative Sepsis Screen. Suicide/Homicide risk assessment- the patient denies having any suicidal and/or homicidal ideations and does not present with any other emotional, behavioral or mental health complaints. Status: Patient is not a service consultant or dependent. Transition of care: patient was not received from another setting of care. 13:02 Acuity: MAGO Level 4 jo3 13:02 Method Of Arrival: Walkin/Carried/Asstd jo3 Triage Assessment: 13:07 General: Appears in no apparent distress, Behavior is appropriate for age, cooperative. jo3 Pain: Pain currently is 7 out of 10 on a pain scale. Neurological: Level of Consciousness is awake, alert, Oriented to person, place, time. Respiratory: No deficits noted. Airway is patent Respiratory effort is even, unlabored. Historical: - Allergies: Avelox; chemo drugs; Doxycycline; ofatumumab; PENICILLINS; rotuxin; - Home Meds: 1. Imbruvica 140 mg oral cap once daily Not taking at this time 2. Klor-Con M20 20 mEq Oral TbTQ 1 tab once daily 3. levothyroxine 75 mcg Oral cap 1 cap once daily 4. Magnesium Oxide Oral daily 5. Percocet 5-325 mg Oral tab 1 tab every 8 hours for Pain (Last dose: 12/26/2016 07:00) 6. Vitamin C Oral daily 7. Vitamin D Oral 2000 unit twice a day 8. Lovenox 80 mg/0.8 mL Sub-Q syrg every 12 hours - PMHx: Hypothyroidism; Leukemia; PE; - PSHx: Hysterectomy; Appendectomy; Cataract Surgery- Bilateral; right knee replacement; - Social history: Smoking status: Patient states was never smoker of tobacco. No barriers to communication noted, The patient speaks fluent Kuwaiti, Speaks appropriately for age. - Family history: Not pertinent. - : The pt / caregiver states he / she is on anticoagulants: coumadin. Home medication list is obtained from the patient. - Exposure Risk Screening:: None identified. Screenin:17 Screening information is obtained from the patient. Fall risk: At risk due to age, The jf3 following interventions are performed due to a positive Fall Risk Screen: Fall Risk is added to Special Handling on the patient Summary Screen. A Fall Risk Bracelet was applied to the patient. Side Rails are placed in the up position. A Call Gonzalez is given with instruction to call for help when getting out of bed. Fall Alert bracelet is placed on the patient. Assistance ADL's: requires no assistance with activities of daily living. Abuse/DV Screen: The patient / caregiver reports he/she is: not in a situation that causes fear, pain or injury. Nutritional screening: No deficits noted. Advance Directives: There is no active DNR order. home support is adequate. 14:19 Fall Risk. jf3 Assessment: 14:17 General: Appears uncomfortable, Behavior is cooperative. Pain: Location: right knee jf3 Pain currently is 7 out of 10 on a pain scale. Neurological: Level of Consciousness is awake, alert, Oriented to person, place, time. Cardiovascular: Capillary refill < 3 seconds Chest pain is denied. Respiratory: Airway is patent Respiratory effort is even, unlabored, Respiratory pattern is regular, symmetrical. Derm: Swollen area noted on right knee. Vital Signs: 12:59 BP 151 / 62; Pulse 94; Resp 18 S; Temp 95.9(O); Pulse Ox 96% on R/A; Weight 78.02 kg gr2 (R); Height 5 ft. 2 in. (157.48 cm) (R); Pain 7/10; 14:17 BP 127 / 58; Pulse 92; Resp 18; Temp 99.4(T); Pulse Ox 98% on R/A; Pain 7/10; jf3 12:59 Body Mass Index 31.46 (78.02 kg, 157.48 cm) gr2 Vitals: 12:59 Log In Time: December 26, 2016 at 12:59. gr2 ED Course: 12:59 Patient visited by Gerardo Darby. gr2 12:59 DEE DECKER RN is Private Physician. gr2 12:59 Tiffany Muñiz is Private Physician. gr2 12:59 Patient moved to Waiting gr2 13:01 Patient visited by Gerardo Darby. gr2 13:01 Patient moved to Pre RCE gr2 13:04 Triage Initiated jo3 13:08 Patient visited by Maine Williamson RN. jo3 13:20 Patient moved to Triage 1 jf3 13:40 Agustin Gomez PA is PHCP. btw 13:40 Gregory Cameron MD is Attending Physician. btw 13:40 Patient visited by Agustin Gomez PA. btw 13:56 Patient moved to PD ck1 14:07 Jeremy Jacques is Referral Physician. btw 14:19 The patient / caregiver is instructed regarding the plan of care and ED course. jf3 14:19 No IV's were initiated during this patient's visit. No procedures done that require jf3 assistance. 15:39 [facility] Payment Agreement was scanned into [employer] and attached to record. 12/27 12:48 T-Sheet-- Draft Copy was scanned into [employer] and attached to record. gb Administered Medications: 12/26 14:15 Drug: traMADol 50 mg [tramadol 50 mg tablet (1 tabs)] Route: PO; jf3 Order Results: There are currently no results for this order. Outcome: 14:07 Discharge ordered by Provider. btw 14:19 Discharge Assessment: Patient awake, alert and oriented x 3. No cognitive and/or jf3 functional deficits noted. Patient verbalized understanding of disposition instructions. patient administered narcotics - yes. Pt provided with safe discharge. The following High Risk Discharge criteria are identified: None. Discharged to Dr Jacques's office. Condition: stable. Discharge instructions given to patient, significant other, Instructed on discharge instructions, follow up and referral plans. Demonstrated understanding of instructions, Pt was receptive of discharge instructions/ teaching. No special radiology studies were completed. Property :Personal belongings accompany Pt. 14:20 Patient left the ED. jf3 Signatures: Mary Lou Rowe, Reg Reg gb Lorelei Talley, Reg Reg lg Nida Monterroso,RN RN ck1 Maine Williamson,RN RN jo3 Agustin Gomez PA PA btw Raymond, Gainslee gr2 Jaydon Whitman,RN RN jf3 Chart Complete MTDD
== END 2016-12-26 14:20 | disposition home or self-care (01) ==
LOC: M ED 12:56
DX: M79.661 Pain in right lower leg (principal); E03.9 Hypothyroidism, unspecified; Z86.711 Personal history of pulmonary embolism; Z85.6 Personal history of leukemia; Z79.899 Other long term (current) drug therapy; Z88.8 Allergy status to other drugs, medicaments and biological substances; Z88.1 Allergy status to other antibiotic agents; Z88.0 Allergy status to penicillin

== ENCOUNTER → 2016-12-31 | Outpatient (REF) | payer MEDICARE ==
[2016-12-31 13:09] LABS: CALCIUM LEVEL 8.3 MG/DL (8.8-10.2); CREATININE FOR GFR 1.09 MG/DL (0.55-1.02); GLOMERULAR FILTRATION RATE 51.4 (>32)
[2016-12-31 13:13] LABS: INR 1.28
[2016-12-31 13:29] LABS: DIFF SLIDE NUMBER 216; MEAN CORPUSCULAR HEMOGLOBIN 30.2 pg (27.0-33.0); MEAN CORPUSCULAR HGB CONC 30.9 g/dl (32.0-36.5); PLATELET COUNT, AUTOMATED 158 k/mm3 (150-450); RED CELL DISTRIBUTION WIDTH 15.2 % (11.5-14.5)
[2016-12-31 13:32] LABS: WHITE BLOOD COUNT 14.8 K/mm3 (4.0-10.0)
[2016-12-31 15:08] LABS: BANDS 2 % (< 11); BLAST CELLS 5 % (0-0); EOSINOPHILS 1 % (0-5); NUCLEATED RED BLOOD CELL 1 % (0-0)
[2016-12-31 15:14] LABS: ANISOCYTOSIS 1+; SMUDGE CELLS 1+
== END ==
LOC: M LAB REF 12:31 → M SHH 12:31
PROVIDERS: ATTEND Nurse Practitioner Adult Health
DX: I26.99 Other pulmonary embolism without acute cor pulmonale (principal); C91.12 Chronic lymphocytic leukemia of B-cell type in relapse; I10 Essential (primary) hypertension

== ENCOUNTER → 2017-01-07 | Outpatient (REF) | payer MEDICARE ==
[2017-01-07 15:11] LABS: INR 1.29
== END ==
LOC: M SHH 14:47
PROVIDERS: ATTEND Nurse Practitioner Adult Health
DX: Z51.81 Encounter for therapeutic drug level monitoring (principal); Z79.01 Long term (current) use of anticoagulants

== ENCOUNTER 2017-01-20 19:10 | Inpatient (IN) | payer MEDICARE ==
[~2017-01-20] VITALS: Ht 157.5 cm; Wt 77.7 kg
[2017-01-20 19:53] LABS: INR 1.97
[2017-01-20 20:03] LABS: DIFF SLIDE NUMBER 135; MEAN CORPUSCULAR HEMOGLOBIN 28.4 pg (27.0-33.0); MEAN CORPUSCULAR HGB CONC 31.1 g/dl (32.0-36.5); MEAN CORPUSCULAR VOLUME 91.4 fl (80.0-96.0); PLATELET COUNT, AUTOMATED 192 k/mm3 (150-450); RED CELL DISTRIBUTION WIDTH 15.1 % (11.5-14.5)
[2017-01-20 20:09] LABS: ALBUMIN 3.6 GM/DL (3.2-5.2); ALBUMIN/GLOBULIN RATIO 1.24 (1.00-1.93); BILIRUBIN,DIRECT 0.2 MG/DL (0.0-0.2); BILIRUBIN,TOTAL 0.5 MG/DL (0.2-1.0); CALCIUM LEVEL 8.6 MG/DL (8.8-10.2); CREATININE FOR GFR 1.19 MG/DL (0.55-1.02); GLOMERULAR FILTRATION RATE 46.5 (>32); POTASSIUM SERUM 4.4 MEQ/L (3.5-5.1); TOTAL PROTEIN 6.5 GM/DL (6.4-8.2)
[2017-01-20 20:10] LABS: WHITE BLOOD COUNT 22.6 K/mm3 (4.0-10.0)
[2017-01-20 20:17] LABS: THYROXINE (T4) 14.8 UG/DL (4.5-12.0)
[2017-01-20] MEDS ORDERED: GASTROGRAFIN SOLUTION 30ML (Q9963) As Ordered ONE (20:35)
[2017-01-20] MEDS ORDERED: MORPHINE 2 MG/ML 1ML SYRINGE As Ordered ONE (20:55)
[2017-01-20] MEDS ORDERED: METOCLOPRAMIDE INJ 10MG/2ML VIAL (J2765) As Ordered ONE (20:55)
[2017-01-20 20:56] LABS: BLAST CELLS 3 % (0-0)
[2017-01-20 20:58] LABS: POIKILOCYTOSIS 1+; SCHISTOCYTES 1+; SMUDGE CELLS 2+
[2017-01-20 20:59] LABS: TEAR DROP CELLS 1+
[2017-01-20] MEDS ORDERED: ISOVUE-370 76% 100ML VIAL (Q9967) As Ordered ONE (22:09)
[2017-01-20] MEDS ORDERED: cefTRIAXone SOD 1 GM VIAL (J0696) As Ordered ONE (22:34)
--- NOTE | 2017-01-20 22:50 | REPUSA ---
CT of the abdomen and pelvis with contrast Clinical statement: Pain. Technique: Multiple axial CT images were obtained from the base of the lungs through the floor of the pelvis utilizing 5 mm axial slices after administration of nonionic intravenous contrast. Coronal an d sagittal reconstructions were also obtained. No comparison is available. Findings: Chest: There are bilateral linear lower lobe infiltrates. Extensive right axillary lymphadenopathy is noted with a dominant lymph node measuring 3.4 x 3.4 cm. A precarinal lymph node measures 2.4 x 1.5 cm. Abdomen: The liver, spleen, pancreas, kidneys, gallbladder, and adrenal glands are unremarkable. The aorta is within normal limits. There is severe extensive retroperitoneal and abdominal lymphadenopath y, with masslike structures throughout the mesentery. For example, a large central abdominal mass herlinda sures 10.0 x 5.1 cm. At the gastroesophageal junction, there is an irregular mass extending into the gastric lumen, measuring approximately 6.4 x 4.6 cm. Pelvis: The bowel is unremarkable, with no obstructive or inflammatory changes. The urinary bladder i s within normal limits. The other pelvic structures appear grossly intact. There is no evidence of pe lvic ascites. Extensive bilateral pelvic lymphadenopathy is noted. Bones: There are no suspicious osseous abnormalities seen. Severe multilevel degenerative disc diseas e with mild dextroscoliosis is appreciated. Osteoarthritic changes of the hip joints is seen bilatera lly. Impression: 1. Extensive adenopathy within the abdomen and pelvis, as well as within the visualized portions of t he chest. Neoplasm must be considered. Lymphoma cannot be excluded. 2. Large irregular soft tissue mass at the gastroesophageal junction. Neoplasm must be considered. En doscopy is recommended. 3. Linear infiltrate/atelectasis in the lower lungs bilaterally. 4. No evidence of hydronephrosis or nephrolithiasis. 5. No obstructive or inflammatory bowel changes. 6. Moderate spondylosis of the lumbar spine.
[2017-01-20] MEDS ORDERED: MORPHINE 2 MG/ML 1ML SYRINGE IV PRN (23:30)
[2017-01-21] MEDS ORDERED: MAGN400C PO (00:01)
[2017-01-21] MEDS ORDERED: SYNT100T PO (00:01)
[2017-01-21] MEDS ORDERED: COUM2.5T11 PO (00:03)
[2017-01-21] MEDS ORDERED: COUM1TAB17 PO (00:03)
[2017-01-21] MEDS ORDERED: SERT25TA PO (00:06)
[2017-01-21 00:10] VITALS: BP 129/60
--- NOTE | 2017-01-21 01:13 | EDDOCDS ---
Nurse's Notes [facility] Name: Lizzy Bray Age: 81 yrs Sex: Female : 1935 Arrival Date: 01/20/2017 Time: 19:10 Bed 13 Private MD: Tiffany Muñiz ANP Diagnosis: Abdominal and pelvic pain;Leukemia, unspecified;Urinary tract infection, site not specified;Other types of follicular lymphoma, intra-abdominal lymph nodes Presentation: 01/20 19:14 Presenting complaint: states: n/d and abd pain and "squeezing" x7 days. Pt ttb pale. Abd pain increasing. States her stomach is distended and swelling.... Adult Sepsis Screening: The patient does not have new or worsening altered mentation. Patient's respiratory rate is less than 22. Systolic blood pressure is greater than 100. Patient has a qSOFA score of 0- Negative Sepsis Screen. Suicide/Homicide risk assessment- the patient denies having any suicidal and/or homicidal ideations and does not present with any other emotional, behavioral or mental health complaints. 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 Transition of care: patient was not received from another setting of care. 19:14 Acuity: MAGO Level 3 ttb 19:14 Method Of Arrival: Walkin/Carried/Asstd ttb Triage Assessment: 19:20 General: Appears ill, uncomfortable, well nourished, well groomed, Behavior is anxious, ttb appropriate for age, cooperative, flat, pleasant, quiet. Pain: Location: abd 8/10. Neurological: Level of Consciousness is awake, alert. Cardiovascular: Chest pain is denied. Respiratory: No deficits noted. Airway is patent Respiratory effort is even, unlabored. GI: Reports bloating, diarrhea, gaseousness, lower abdominal pain, upper abdominal pain, nausea, vomiting. Derm: Skin is pale. Musculoskeletal: Range of motion limited in right knee d/t recent surgery. Injury Description: No known injury. Historical: - Allergies: rotuxin; PENICILLINS; ofatumumab; Doxycycline; chemo drugs; Avelox; - Home Meds: 1. Magnesium Oxide Oral 400 mg daily (Last dose: 01/20/2017 08:00) 2. Klor-Con M20 20 mEq Oral TbTQ 1 tab once daily 3. levothyroxine 100 mcg Oral cap once daily (Last dose: 01/20/2017 07:00) 4. Vitamin C Oral daily (Last dose: 01/20/2017 07:00) 5. Vitamin D Oral 2000 unit daily (Last dose: 01/20/2017 08:00) 6. Imbruvica 140 mg oral cap once daily Not taking at this time off since Nov 25 7. Coumadin 2.5 mg Oral tab 1 tab once daily 5mg tomorrow (Last dose: 01/20/2017 08:00) 8. Sertraline 25 mg daily (Last dose: 01/20/2017 08:00) - PMHx: Hypothyroidism; Leukemia; PE; CLL; - PSHx: right knee arthroplasty; Cataract Surgery- Bilateral; Appendectomy; Hysterectomy; - Social history: Smoking status: Patient states was never smoker of tobacco. Patient/guardian denies using alcohol, street drugs, No barriers to communication noted, The patient speaks fluent Burmese, Speaks appropriately for age. - Family history: Not pertinent. - : The pt / caregiver states he / she is on anticoagulants: coumadin. Home medication list is obtained from the patient. - Exposure Risk Screening:: None identified. - History obtained from: . Screenin:47 Screening information is obtained from the patient. Fall risk: No risks identified. jmb Assistance ADL's: requires no assistance with activities of daily living. Abuse/DV Screen: The patient / caregiver reports he/she is: not in a situation that causes fear, pain or injury. Nutritional screening: No deficits noted. home support is adequate. 01/21 00:57 Advance Directives: Currently, there is no health care proxy. There is no active DNR jmb order. There is no living will. There is no Power of Careers Adviser. Assessment: 01/20 19:47 General: Appears ill, Behavior is appropriate for age, cooperative. [facility]: [facility] Pain currently is 9 out of 10 on a pain scale. Neurological: Level of Consciousness is awake, alert, obeys commands, Oriented to person, place, time, Speech is normal, Facial symmetry appears normal, Facial symmetry: tongue is midline. Cardiovascular: Capillary refill < 3 seconds Heart tones present Pulses are all present. Rhythm is regular. Respiratory: Airway is patent Respiratory effort is even, unlabored, Respiratory pattern is regular, symmetrical, Breath sounds are diminished bilaterally. GI: Abdomen is distended, Bowel sounds present X 4 quads. hypoactive in right upper quadrant, left upper quadrant, right lower quadrant and left lower quadrant Abd is tender to palpation X 4 quads. Abd is rigid X 4 quads. Derm: Skin is pale. Musculoskeletal: Range of motion intact in all extremities. 20:30 General: Appears in no apparent distress, Behavior is appropriate for age, cooperative, jmb Patient laying on stretcher with at bedside. No voiced complaints at this time. . Neurological: Level of Consciousness is awake, alert, obeys commands, Oriented to person, place, time. Respiratory: Airway is patent Respiratory effort is even, unlabored, Respiratory pattern is regular, symmetrical. 21:00 General: Appears in no apparent distress, Behavior is appropriate for age, cooperative, jmb Patient laying on stretcher with at bedside. NO voiced complaints at this time. . Neurological: Level of Consciousness is awake, alert, obeys commands, Oriented to person, place, time. Respiratory: Airway is patent Respiratory effort is even, unlabored, Respiratory pattern is regular, symmetrical. 21:35 General: Appears in no apparent distress, Behavior is appropriate for age, cooperative. jmb General: Patient laying on stretcher, appears comfortable. NO voiced complaints at this time. . Neurological: Level of Consciousness is awake, alert, obeys commands, Oriented to person, place, time. Respiratory: Airway is patent Respiratory effort is even, unlabored, Respiratory pattern is regular, symmetrical. 22:00 General: Appears in no apparent distress, Behavior is appropriate for age, cooperative. jmb Neurological: Level of Consciousness is awake, alert, obeys commands, Oriented to person, place, time. Respiratory: Airway is patent Respiratory effort is even, unlabored, Respiratory pattern is regular, symmetrical. 22:32 General: Appears in no apparent distress, comfortable, Behavior is appropriate for age, jmb cooperative, Patient returned from CT, up to bathroom. NO voiced complaints at this time. . Neurological: Level of Consciousness is awake, alert, obeys commands, Oriented to person, place, time. Respiratory: Airway is patent Respiratory effort is even, unlabored, Respiratory pattern is regular, symmetrical. 23:00 General: Appears in no apparent distress, comfortable, Behavior is appropriate for age, jmb cooperative. Neurological: Level of Consciousness is awake, alert, obeys commands, Oriented to person, place, time. Respiratory: Airway is patent Respiratory effort is even, unlabored, Respiratory pattern is regular, symmetrical. 23:36 General: Appears in no apparent distress, comfortable, Behavior is appropriate for age, jmb cooperative, Patient laying on stretcher with at bedside. No voiced complaints at this time. . Neurological: Level of Consciousness is awake, alert, obeys commands, Oriented to person, place, time. Respiratory: Airway is patent Respiratory effort is even, unlabored, Respiratory pattern is regular, symmetrical. 01/21 00:30 General: Appears in no apparent distress, comfortable, Behavior is appropriate for age, jmb cooperative. Neurological: Level of Consciousness is awake, alert, obeys commands, Oriented to person, place, time. Respiratory: Airway is patent Respiratory effort is even, unlabored, Respiratory pattern is regular, symmetrical. 01:06 General: Appears in no apparent distress, comfortable, Behavior is appropriate for age, jmb cooperative, Patient laying on stretcher, no voiced complaints at this time. . Neurological: Level of Consciousness is awake, alert, obeys commands, Oriented to person, place, time. Respiratory: Airway is patent Respiratory effort is even, unlabored, Respiratory pattern is regular, symmetrical. Vital Signs: 01/20 19:12 BP 138 / 73; Pulse 103; Resp 18; Temp 99.4(O); Pulse Ox 95% on R/A; Weight 78.02 kg lr2 (R); Height 5 ft. 2 in. (157.48 cm) (R); Pain 8/10; 20:12 BP 141 / 70 (auto/); jmb 20:12 Pulse 88 MON; Pulse Ox 93% ; jmb 20:27 BP 135 / 74 (auto/); jmb 20:27 Pulse 86 MON; Pulse Ox 93% ; jmb 20:42 BP 140 / 80 (auto/); jmb 20:42 Pulse 88 MON; Pulse Ox 93% ; jmb 20:57 BP 146 / 67 (auto/); jmb 20:57 Pulse 86 MON; Pulse Ox 94% ; jmb 21:12 BP 140 / 69 (auto/); jmb 21:12 Pulse 90 MON; Pulse Ox 94% ; jmb 21:27 BP 148 / 76 (auto/); jmb 21:27 Pulse 92 MON; Pulse Ox 96% ; jmb 21:42 BP 141 / 69 (auto/); jmb 21:42 Pulse 98 MON; Pulse Ox 95% ; jmb 21:57 BP 137 / 74 (auto/); jmb 21:57 Pulse 100 MON; Pulse Ox 92% ; jmb 22:12 BP 135 / 74 (auto/); jmb 22:12 Pulse 100 MON; Pulse Ox 92% ; jmb 22:42 BP 134 / 65 (auto/); jmb 22:42 Pulse 94 MON; Pulse Ox 91% ; jmb 22:57 BP 132 / 67 (auto/); jmb 22:57 Pulse 94 MON; Pulse Ox 91% ; jmb 23:12 BP 131 / 70 (auto/); jmb 23:12 Pulse 92 MON; Pulse Ox 90% ; jmb 23:27 BP 121 / 65 (auto/); jmb 23:27 Pulse 92 MON; Pulse Ox 92% ; jmb 23:42 BP 135 / 70 (auto/); jmb 23:42 Pulse 90 MON; Pulse Ox 92% ; jmb 23:57 BP 123 / 67 (auto/); jmb 23:57 Pulse 92 MON; Pulse Ox 93% ; jmb 01/21 00:12 BP 129 / 70 (auto/); jmb 00:12 Pulse 90 MON; Pulse Ox 93% ; jmb 00:27 BP 118 / 59 (auto/); jmb 00:27 Pulse 88 MON; Pulse Ox 93% ; jmb 00:42 BP 119 / 63 (auto/); jmb 00:42 Pulse 88 MON; Pulse Ox 92% ; jmb 00:57 BP 118 / 63 (auto/); jmb 00:57 Pulse 90 MON; Resp 20; Temp 99.0(O); Pulse Ox 92% ; Pain 0/10; jmb 01/20 19:12 Body Mass Index 31.46 (78.02 kg, 157.48 cm) lr2 Vitals: 01/20 19:12 Log In Time: January 20, 2017 at 19:10. lr2 ED Course: 19:12 Patient visited by Kayla Gil. lr2 19:12 Patient moved to Waiting lr2 19:13 Tiffany Muñiz is Private Physician. lr2 19:16 Patient moved to Pre RCE lr2 19:17 Triage Initiated ttb 19:22 Patient moved to 13 ttb 19:26 Jace Tanner DO is Attending Physician. cs11 19:26 Patient visited by Jace Tanner DO. cs11 19:47 The patient / caregiver is instructed regarding the plan of care and ED course. jmb 19:47 Lactic Acid (Marquez tube on ice) Sent. jmb 19:47 -Blood Culture Sent. jmb 19:47 Inserted saline lock: 20 gauge in right antecubital area and blood collected. The b patient tolerated the procedure well. Labs drawn. (by ED staff). Sent per order to lab. Labs/Blood culture drawn. 19:49 Patient visited by Joon Britton RN. jmb 20:24 DIFFERENTIAL NO CHARGE Sent. cln 20:31 Patient visited by Joon Britton RN. jmb 21:01 Patient visited by Joon Britton RN. jmb 21:38 Patient visited by Joon Britton RN. jmb 21:42 Patient visited by Kayla Cohn PCA. mallory 21:42 Assisted to bedside commode. mallory 21:42 Urine Culture Sent. mallory 21:42 Urinalysis Sent. mallory 22:00 Patient visited by Joon Britton RN. jmb 22:33 Patient visited by Joon Britton RN. jmb 22:52 CT ABD & PELVIS: IV and Oral Contrast Returned. EDMS 23:01 Patient visited by Joon Britton RN. jmb 23:28 Nora Combs is Hospitalizing Provider. cs11 23:36 Patient visited by Joon Britton RN. helder 01/21 00:52 [facility] Payment Agreement was scanned into [employer] and attached to record. hs2 00:57 No procedures done that require assistance. jmhelder Administered Medications: 01/20 19:54 Drug: NS 0.9% 500 ml [sodium chloride 0.9 % intravenous solution] Route: IV; Rate: rodolfo bolus; Site: right antecubital; 21:35 Follow up: IV Status: Completed infusion jmb 20:40 Drug: Diatrizoate Meglumine & Sodium 10 ml [diatrizoate meglumine and diat.sodium 66 jmb %-10 % oral solution (10 mL)] Route: PO; 21:34 Follow up: Response: No Adverse Reaction rodolfo 20:43 Drug: NS 0.9% 500 ml [sodium chloride 0.9 % intravenous solution] Route: IV; Rate: jmb bolus; Site: right antecubital; 21:00 Drug: Metoclopramide 10 mg [metoclopramide 5 mg/mL injection solution] Route: IV; Rate: jmb 40 mg/hr; Infused Over: 15 mins; Site: right antecubital; 21:00 Drug: morphine 2 mg [morphine 2 mg/mL intravenous cartridge (1 mL)] Route: IVP; Site: jmb right antecubital; 21:09 Drug: Diatrizoate Meglumine & Sodium 10 ml [diatrizoate meglumine and diat.sodium 66 jmb %-10 % oral solution (10 mL)] Route: PO; 21:35 Follow up: Response: No Adverse Reaction rodolfo 22:39 Drug: cefTRIAXone 1 grams [ceftriaxone 1 gram solution for injection] Route: IVPB; jmb Infused Over: 30 mins; Site: right antecubital; Order Results: Lab Order: CBC with Diff; SPEC'M 01/20/17 19:35 Test: WHITE BLOOD COUNT; Value: 22.6; Range: 4.0-10.0; Abnormal: Above high normal; Units: K/mm3; Status: F Test: RED BLOOD COUNT; Value: 3.99; Range: 4.00-5.40; Abnormal: Below low normal; Units: M/mm3; Status: F Test: HEMOGLOBIN; Value: 11.3; Range: 12.0-16.0; Abnormal: Below low normal; Units: g/dl; Status: F Test: HEMATOCRIT; Value: 36.5; Range: 36.0-47.0; Units: %; Status: F Test: MEAN CORPUSCULAR VOLUME; Value: 91.4; Range: 80.0-96.0; Units: fl; Status: F Test: MEAN CORPUSCULAR HEMOGLOBIN; Value: 28.4; Range: 27.0-33.0; Units: pg; Status: F Test: MEAN CORPUSCULAR HGB CONC; Value: 31.1; Range: 32.0-36.5; Abnormal: Below low normal; Units: g/dl; Status: F Test: RED CELL DISTRIBUTION WIDTH; Value: 15.1; Range: 11.5-14.5; Abnormal: Above high normal; Units: %; Status: F Test: PLATELET COUNT, AUTOMATED; Value: 192; Range: 150-450; Units: k/mm3; Status: F Test Note: ; A Pathologist review of this differential can help in the evaluation of a differential diagnosis. Please order a Pathologist Review (PATHREVCOMP) if deemed necessary. Results are subject to change if a Pathologist Review is performed. Test: NEUTROPHILS; Value: 15; Range: 35-75; Abnormal: Below low normal; Units: %; Status: F Test: LYMPHOCYTES; Value: 52; Range: 16-52; Units: %; Status: F Test: MONOCYTES; Value: 2; Range: 0-8; Units: %; Status: F Test: BLAST CELLS; Value: 3; Range: 0-0; Abnormal: Above high normal; Units: %; Status: F Test: ATYPICAL LYMPH; Value: 28; Range: 0-5; Abnormal: Above high normal; Units: %; Status: F Test: POIKILOCYTOSIS; Value: 1+; Status: F Test: SCHISTOCYTES; Value: 1+; Status: F Test: TEAR DROP CELLS; Value: 1+; Status: F Test: SMUDGE CELLS; Value: 2+; Status: F Lab Order: [facility] Profile; ALEXIA'Jordan 01/20/17 19:35 Test: GLUCOSE, FASTING; Value: 104; Range: 83-110; Units: MG/DL; Status: F Test: BLOOD UREA NITROGEN; Value: 13; Range: 7-18; Units: MG/DL; Status: F Test: CREATININE FOR GFR; Value: 1.19; Range: 0.55-1.02; Abnormal: Above high normal; Units: MG/DL; Status: F Test: GLOMERULAR FILTRATION RATE; Value: 46.5; Range: >32; Status: F Test: SODIUM LEVEL; Value: 137; Range: 136-145; Units: MEQ/L; Status: F Test: POTASSIUM SERUM; Value: 4.4; Range: 3.5-5.1; Units: MEQ/L; Status: F Test: CHLORIDE LEVEL; Value: 100; Range: 98-107; Units: MEQ/L; Status: F Test: CARBON DIOXIDE LEVEL; Value: 26; Range: 21-32; Units: MEQ/L; Status: F Test: ANION GAP; Value: 11; Range: 8-16; Units: MEQ/L; Status: F Test: CALCIUM LEVEL; Value: 8.6; Range: 8.8-10.2; Abnormal: Below low normal; Units: MG/DL; Status: F Test Note: ; Units are mL/min/1.73 m2 Chronic Kidney Disease Staging per NKF: Stage I & II GFR >=60 Normal to Mildly Decreased Stage III GFR 30-59 Moderately Decreased Stage IV GFR 15-29 Severely Decreased Stage V GFR <15 Very Little GFR Left ESRD GFR <15 on [employer]ING Lab Order: Liver Profile; [facility] 01/20/17 19:35 Test: AST/SGOT; Value: 19; Range: 15-37; Units: U/L; Status: F Test: ALT/SGPT; Value: 26; Range: 12-78; Units: U/L; Status: F Test: ALKALINE PHOSPHATASE; Value: 110; Range: 45-117; Units: U/L; Status: F Test: BILIRUBIN,TOTAL; Value: 0.5; Range: 0.2-1.0; Units: MG/DL; Status: F Test: BILIRUBIN,DIRECT; Value: 0.2; Range: 0.0-0.2; Units: MG/DL; Status: F Test: TOTAL PROTEIN; Value: 6.5; Range: 6.4-8.2; Units: GM/DL; Status: F Test: ALBUMIN; Value: 3.6; Range: 3.2-5.2; Units: GM/DL; Status: F Test: ALBUMIN/GLOBULIN RATIO; Value: 1.24; Range: 1.00-1.93; Status: F Lab Order: Amylase; [facility] 01/20/17 19:35 Test: AMYLASE; Value: 41; Range: 25-115; Units: U/L; Status: F Lab Order: Lipase; [facility] 01/20/17 19:35 Test: LIPASE; Value: 211; Range: 73-393; Units: U/L; Status: F Lab Order: Urinalysis; [facility] 01/20/17 21:40 Test: APPEARANCE, URINE; Value: CLOUDY; Range: CLEAR; Abnormal: Above high normal; Status: F Test: COLOR, URINE; Value: YELLOW; Range: YELLOW; Status: F Test: PH,URINE; Value: 7.0; Range: 5.0-9.0; Units: UNITS; Status: F Test: SPECIFIC GRAVITY URINE AUTO; Value: 1.005; Range: 1.002-1.035; Status: F Test: PROTEIN, URINE AUTO; Value: 1+; Range: NEGATIVE; Abnormal: Above high normal; Units: mg/dL; Status: F Test: GLUCOSE, URINE (UA) AUTO; Value: NEGATIVE; Range: NEGATIVE; Units: mg/dL; Status: F Test: KETONE, URINE AUTO; Value: NEGATIVE; Range: NEGATIVE; Units: mg/dL; Status: F Test: UROBILINOGEN, URINE AUTO; Value: 0.2; Range: 0.0-2.0; Units: mg/dL; Status: F Test: BILIRUBIN, URINE AUTO; Value: NEGATIVE; Range: NEGATIVE; Status: F Test: NITRITE, URINE AUTO; Value: POSITIVE; Range: NEGATIVE; Status: F Test: LEUKOCYTE ESTERASE, URINE AUTO; Value: 3+; Range: NEGATIVE; Abnormal: Above high normal; Status: F Test: BLOOD, URINE BLOOD; Value: 1+; Range: NEGATIVE; Abnormal: Above high normal; Status: F Test: WBC, URINE AUTO; Value: TNTC; Range: 0-3; Abnormal: Above high normal; Units: /HPF; Status: F Test: RBC, URINE AUTO; Value: 34; Range: 0-3; Abnormal: Above high normal; Units: /HPF; Status: F Test: BACTERIA, URINE AUTO; Value: 2+; Range: NEGATIVE; Abnormal: Above high normal; Status: F Test: SQUAMOUS EPITHELIAL CELL UR AU; Value: 0; Range: 0-6; Units: /HPF; Status: F Test: HYALINE CAST, URINE AUTO; Value: 0; Range: 0-1; Units: /LPF; Status: F Lab Order: Pt & Aptt; SPEC'M 01/20/17 19:35 Test: PROTHROMBIN TIME; Value: 22.5; Range: 12.3-14.5; Abnormal: Above high normal; Units: SECONDS; Status: F Test: INR; Value: 1.97; Status: F Test: PARTIAL THROMBOPLASTIN TIME; Value: 31.2; Range: 26.6-37.1; Units: SECONDS; Status: F Test Note: ; THERAPUTIC HUMAN INR VALUES INDICATIONS NORMAL RANGES PROPHYLAXIS/TREATMENT OF: VENOUS THROMBOSIS 2.0-3.0 PULMONARY EMBOLISM 2.0-3.0 PREVENTION OF SYSTEMIC EMBOLISM FROM: TISSUE HEART VALVES 2.0-3.0 ACUTE MYOCARDIAL INFARCTION 2.0-3.0 VALVULAR HEART DISEASE 2.0-3.0 ATRIAL FIBRILLATION 2.0-3.0 MECHANICAL VALVES(HIGH RISK) 2.5-3.5 RECURRENT MYOCARDIAL INFARCTION 2.5-3.5 Lab Order: Thyroid Profile; SPEC'M 01/20/17 19:35 Test: T UPTAKE; Value: 31; Range: 30-39; Units: %; Status: F Test: THYROXINE (T4); Value: 14.8; Range: 4.5-12.0; Abnormal: Above high normal; Units: UG/DL; Status: F Test: FREE THYROXINE INDEX; Value: 4.6; Range: 1.3-4.8; Units: %; Status: F Test: THYROID STIMULATING HORMONE; Value: 10.300; Range: 0.358-3.740; Abnormal: Above high normal; Units: uIU/ML; Status: F Lab Order: Lactic Acid (Marquez tube on ice); SPEC'M 01/20/17 19:35 Test: LACTIC ACID SEPSIS PROTOCOL; Value: 1.4; Range: 0.4-2.0; Units: MMOL/L; Status: F Lab Order: PLATELET ESTIMATE; SPEC'M 01/20/17 19:35 Test: PLATELET ESTIMATE; Value: NORMAL; Range: NORMAL; Status: F Radiology Order: CT ABD & PELVIS: IV and Oral Contrast Test: CT ABD & PELVIS: IV and Oral Contrast REASON FOR EXAMINATION: Abdomen Pain; ; CT of the abdomen and pelvis with contrast; Clinical statement: Pain.; Technique: Multiple axial CT images were obtained from the base of the lungs through the floor of the; pelvis utilizing 5 mm axial slices after administration of nonionic intravenous contrast. Coronal an; d sagittal reconstructions were also obtained.; No comparison is available.; Findings:; Chest: There are bilateral linear lower lobe infiltrates. Extensive right axillary lymphadenopathy is; noted with a dominant lymph node measuring 3.4 x 3.4 cm. A precarinal lymph node measures 2.4 x 1.5; cm.; Abdomen: The liver, spleen, pancreas, kidneys, gallbladder, and adrenal glands are unremarkable. The; aorta is within normal limits. There is severe extensive retroperitoneal and abdominal lymphadenopath; y, with masslike structures throughout the mesentery. For example, a large central abdominal mass herlinda; sures 10.0 x 5.1 cm. At the gastroesophageal junction, there is an irregular mass extending into the; gastric lumen, measuring approximately 6.4 x 4.6 cm.; Pelvis: The bowel is unremarkable, with no obstructive or inflammatory changes. The urinary bladder i; s within normal limits. The other pelvic structures appear grossly intact. There is no evidence of pe; lvic ascites. Extensive bilateral pelvic lymphadenopathy is noted.; Bones: There are no suspicious osseous abnormalities seen. Severe multilevel degenerative disc diseas; e with mild dextroscoliosis is appreciated. Osteoarthritic changes of the hip joints is seen bilatera; lly.; Impression:; 1. Extensive adenopathy within the abdomen and pelvis, as well as within the visualized portions of t; he chest. Neoplasm must be considered. Lymphoma cannot be excluded.; 2. Large irregular soft tissue mass at the gastroesophageal junction. Neoplasm must be considered. En; doscopy is recommended.; 3. Linear infiltrate/atelectasis in the lower lungs bilaterally.; 4. No evidence of hydronephrosis or nephrolithiasis.; 5. No obstructive or inflammatory bowel changes.; 6. Moderate spondylosis of the lumbar spine.; ; Outcome: 23:31 Decision to Hospitalize by Provider. cs11 01/21 00:57 Discharge Assessment: Patient awake, alert and oriented x 3. No cognitive and/or jmb functional deficits noted. Patient verbalized understanding of disposition instructions. Patient awake and alert. obeys commands, Oriented to person, place and time. Patient verbalized understanding of disposition instructions. Patient has no functional deficits. patient administered narcotics - yes. Patient was admitted to the hospital or transferred to another facility. The following High Risk Discharge criteria are identified: None. Condition: stable Condition: improved. CT Study completed. Property :Personal belongings accompany Pt. 01:11 Patient left the ED. jmb Signatures: Dispatcher [employer] EDMS Kayla Cohn, COUTIERIER COUTIERIER mallory Jace Tanner, DO cs11 Carmen Templeton, RN RN ttb Joon Britton,MAGGIE RN jmb Lexus Christianson, Reg Reg hs2 Bud, Candie, COUTIERIER COUTIERIER cln Kayla Gil lr2 MTDD
--- NOTE | 2017-01-21 01:13 | EDDOCDS ---
Physician Documentation [facility] Name: Lizzy Bray Age: 81 yrs Sex: Female : 1935 Arrival Date: 01/20/2017 Time: 19:10 Bed 13 Private MD: Tiffany Muñiz ANP Disposition: 01/20/17 23:31 Hospitalization ordered by Nora Combs for Inpatient Admission. Preliminary diagnosis are Abdominal and pelvic pain, Leukemia, unspecified, Urinary tract infection, site not specified, Other types of follicular lymphoma, intra-abdominal lymph nodes. - Bed requested for PCU. - Status is Inpatient Admission. jmb - Condition is Stable. - Problem is an ongoing problem. - Symptoms are unchanged. Historical: - Allergies: rotuxin; PENICILLINS; ofatumumab; Doxycycline; chemo drugs; Avelox; - Home Meds: 1. Magnesium Oxide Oral 400 mg daily (Last dose: 01/20/2017 08:00) 2. Klor-Con M20 20 mEq Oral TbTQ 1 tab once daily 3. levothyroxine 100 mcg Oral cap once daily (Last dose: 01/20/2017 07:00) 4. Vitamin C Oral daily (Last dose: 01/20/2017 07:00) 5. Vitamin D Oral 2000 unit daily (Last dose: 01/20/2017 08:00) 6. Imbruvica 140 mg oral cap once daily Not taking at this time off since Nov 25 7. Coumadin 2.5 mg Oral tab 1 tab once daily 5mg tomorrow (Last dose: 01/20/2017 08:00) 8. Sertraline 25 mg daily (Last dose: 01/20/2017 08:00) - PMHx: Hypothyroidism; Leukemia; PE; CLL; - PSHx: right knee arthroplasty; Cataract Surgery- Bilateral; Appendectomy; Hysterectomy; - Social history: Smoking status: Patient states was never smoker of tobacco. Patient/guardian denies using alcohol, street drugs, No barriers to communication noted, The patient speaks fluent Zambian, Speaks appropriately for age. - Family history: Not pertinent. - : The pt / caregiver states he / she is on anticoagulants: coumadin. Home medication list is obtained from the patient. - Exposure Risk Screening:: None identified. - History obtained from: . Vital Signs: 02/26 19:12 BP 138 / 73; Pulse 103; Resp 18; Temp 99.4(O); Pulse Ox 95% on R/A; Weight 78.02 kg / lr2 172 lbs (R); Height 5 ft. 2 in. (157.48 cm) (R); Pain 8/10; 20:12 BP 141 / 70 (auto/); jmb 20:12 Pulse 88 MON; Pulse Ox 93% ; jmb 20:27 BP 135 / 74 (auto/); jmb 20:27 Pulse 86 MON; Pulse Ox 93% ; jmb 20:42 BP 140 / 80 (auto/); jmb 20:42 Pulse 88 MON; Pulse Ox 93% ; jmb 20:57 BP 146 / 67 (auto/); jmb 20:57 Pulse 86 MON; Pulse Ox 94% ; jmb 21:12 BP 140 / 69 (auto/); jmb 21:12 Pulse 90 MON; Pulse Ox 94% ; jmb 21:27 BP 148 / 76 (auto/); jmb 21:27 Pulse 92 MON; Pulse Ox 96% ; jmb 21:42 BP 141 / 69 (auto/); jmb 21:42 Pulse 98 MON; Pulse Ox 95% ; jmb 21:57 BP 137 / 74 (auto/); jmb 21:57 Pulse 100 MON; Pulse Ox 92% ; jmb 22:12 BP 135 / 74 (auto/); jmb 22:12 Pulse 100 MON; Pulse Ox 92% ; jmb 22:42 BP 134 / 65 (auto/); jmb 22:42 Pulse 94 MON; Pulse Ox 91% ; jmb 22:57 BP 132 / 67 (auto/); jmb 22:57 Pulse 94 MON; Pulse Ox 91% ; jmb 23:12 BP 131 / 70 (auto/); jmb 23:12 Pulse 92 MON; Pulse Ox 90% ; jmb 23:27 BP 121 / 65 (auto/); jmb 23:27 Pulse 92 MON; Pulse Ox 92% ; jmb 23:42 BP 135 / 70 (auto/); jmb 23:42 Pulse 90 MON; Pulse Ox 92% ; jmb 23:57 BP 123 / 67 (auto/); jmb 23:57 Pulse 92 MON; Pulse Ox 93% ; jmb 01/21 00:12 BP 129 / 70 (auto/); jmb 00:12 Pulse 90 MON; Pulse Ox 93% ; jmb 00:27 BP 118 / 59 (auto/); jmb 00:27 Pulse 88 MON; Pulse Ox 93% ; jmb 00:42 BP 119 / 63 (auto/); jmb 00:42 Pulse 88 MON; Pulse Ox 92% ; jmb 00:57 BP 118 / 63 (auto/); jmb 00:57 Pulse 90 MON; Resp 20; Temp 99.0(O); Pulse Ox 92% ; Pain 0/10; b 01/20 19:12 Body Mass Index 31.46 (78.02 kg, 157.48 cm) lr2 MDM: 01/20 19:28 IV Saline Lock ordered. cs11 19:29 -Blood Culture Ordered. EDMS 19:29 CBC with Diff Ordered. EDMS 19:29 MED Profile Ordered. EDMS 19:29 Liver Profile Ordered. EDMS 19:29 Amylase Ordered. EDMS 19:29 Lipase Ordered. EDMS 19:29 Urinalysis Ordered. EDMS 19:29 Urine Culture Ordered. EDMS 19:30 NS 0.9% 500 ml IV at bolus once ordered. cs11 19:30 Pt & Aptt Ordered. EDMS 19:30 Thyroid Profile Ordered. EDMS 19:32 Lactic Acid (Marquez tube on ice) Ordered. EDMS 20:12 DIFFERENTIAL NO CHARGE Ordered. EDMS 20:17 MED Profile Reviewed. cs11 20:17 Pt & Aptt Reviewed. cs11 20:17 Liver Profile Reviewed. cs11 20:17 Amylase Reviewed. cs11 20:17 Lipase Reviewed. cs11 20:17 NS 0.9% 500 ml IV at bolus once ordered. cs11 20:20 CT ABD & PELVIS: IV and Oral Contrast Ordered. EDMS 20:45 Metoclopramide 10 mg IV at 40 mg/hr once over 15 mins ordered. cs11 20:45 morphine 2 mg IVP once ordered. cs11 20:45 Thyroid Profile Reviewed. cs11 20:45 Lactic Acid (Marquez tube on ice) Reviewed. cs11 21:01 Diatrizoate Meglumine & Sodium Liquid 10 ml PO once; mix in 290cc of water ordered. jmb 21:01 Diatrizoate Meglumine & Sodium Liquid 10 ml PO once; mix in 290cc of water ordered. jmb 22:29 CBC with Diff Reviewed. cs11 22:29 Urinalysis Reviewed. cs11 22:29 PLATELET ESTIMATE Reviewed. cs11 22:31 cefTRIAXone 1 grams IVPB once over 30 mins; dilute in 50mL of NS or D5W ordered. cs11 23:24 CT ABD & PELVIS: IV and Oral Contrast Reviewed. cs11 23:31 PHYSICAL THERAPY EVAL & TREAT ordered. EDMS 23:31 Admission / Observation Status ordered. EDMS 23:31 NPO DIET ordered. EDMS 23:32 COMPLETE COMPHRENSIVE METABOLI Ordered. EDMS 23:32 CBC WITH DIFFERENTIAL Ordered. EDMS 01/21 00:26 Financial registration complete. hs2 00:52 [facility] Payment Agreement was scanned into [employer] and attached to record. hs2 Administered Medications: 01/20 19:54 Drug: NS 0.9% 500 ml [sodium chloride 0.9 % intravenous solution] Route: IV; Rate: jmb bolus; Site: right antecubital; 21:35 Follow up: IV Status: Completed infusion jmb 20:40 Drug: Diatrizoate Meglumine & Sodium 10 ml [diatrizoate meglumine and diat.sodium 66 jmb %-10 % oral solution (10 mL)] Route: PO; 21:34 Follow up: Response: No Adverse Reaction jmb 20:43 Drug: NS 0.9% 500 ml [sodium chloride 0.9 % intravenous solution] Route: IV; Rate: jmb bolus; Site: right antecubital; 21:00 Drug: Metoclopramide 10 mg [metoclopramide 5 mg/mL injection solution] Route: IV; Rate: jmb 40 mg/hr; Infused Over: 15 mins; Site: right antecubital; 21:00 Drug: morphine 2 mg [morphine 2 mg/mL intravenous cartridge (1 mL)] Route: IVP; Site: jmb right antecubital; 21:09 Drug: Diatrizoate Meglumine & Sodium 10 ml [diatrizoate meglumine and diat.sodium 66 jmb %-10 % oral solution (10 mL)] Route: PO; 21:35 Follow up: Response: No Adverse Reaction jmb 22:39 Drug: cefTRIAXone 1 grams [ceftriaxone 1 gram solution for injection] Route: IVPB; jmb Infused Over: 30 mins; Site: right antecubital; Signatures: Dispatcher [employer] EDMS Jace Tanner DO DO cs11 Carmen Templeton RN RN ttb Isa, Tisha, LUBE ATTENDANT LUBE ATTENDANT [email or web address] Joon Britton,RN RN jmb Lexus Christianson, Reg Reg hs2 The chart was reviewed and I authenticate all verbal orders and agree with the evaluation and treatment provided.Attachments: 01/21 00:52 [facility] Payment Agreement hs2 MTDD
[2017-01-21 01:49] LABS: REASON FOR REVIEW LEUKEMIA / BLASTS
[2017-01-21] MEDS: AZTREONAM 1 GM in D5W MINI-BAG PLUS 50 ML IV SCH ×2 (02:44→08:48)
--- NOTE | 2017-01-21 02:50 | HPE ---
DATE OF ADMISSION: 01/20/2017 PRIMARY CARE PROVIDER: ANJUM Devlin. INPATIENT HOSPITALIST ATTENDING: Delroy Horan MD. CHIEF COMPLAINT: Abdominal pain. HISTORY OF PRESENTING ILLNESS: 81-year-old female with history of chronic lymphocytic leukemia (CLL), follows with Dr. Karimi, [facility] medical oncology, still undergoing chemotherapy, hypothyroidism, pulmonary embolism on chronic Coumadin status post right knee arthroplasty November 2016, presents to the emergency room with 7-day history of diffuse abdominal pain described as squeezing pain. "I feel like something is tied up to me and sitting on my abdomen." Patient is unable to sit up and feels better when she lies flat. She has had decrease in appetite with no weight gain or loss. Complains of significant bloating, but unable to burp or pass gas. Patient did have a bowel movement which was this morning diarrhea. She describes the pain diffusely without radiation. No medications were taken. No fever, nausea or vomiting. Patient has no prior episodes of this kind of pain. She has noted right axillary lymphadenopathy, which is chronic and enlarging, at least for the past 6 months, which has not been looked at by her primary care physician or medical oncologist. In the emergency room (ER), a CT abdomen and pelvis shows a large mass at the gastroesophageal (GE) junction, as well as significant lymphadenopathy suspicious for lymphoma. Hospitalist service was called for admission. Urinalysis was suspicious for urinary tract infection (UTI) despite denying dysuria, urgency, frequency, fevers, chills, or flank pain. Hospitalist service was asked to admit for UTI and lymphadenopathy found on CT. PAST MEDICAL HISTORY: 1. CLL. 2. Pulmonary embolism. 3. Hypothyroidism. PAST SURGICAL HISTORY: 1. Right knee arthroplasty. 2. Cataract surgery bilaterally. 3. Appendectomy. 4. Hysterectomy. ALLERGIES: PENICILLIN, PENICILLIN CROSS REACTANTS, QUINOLONES, RITUXAN, OFATUMUMAB, DOXYCYCLINE. HOME MEDICATIONS: - magnesium oxide 400 daily - Klor-Con 20 mEq daily - levothyroxine 100 mcg daily - vitamin C daily - vitamin D 2000 units daily - Imbruvica 140 mg, not taking this since 11/25/2016 - Coumadin 2.5 mg daily, 5 mg tomorrow - sertraline 25 mg daily SOCIAL HISTORY: Denies tobacco, alcohol use. 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 Lives with . Healthcare proxy is Scahin Bray. Phone number [phone]. Patient is a FULL CODE. FAMILY HISTORY: Noncontributory due to age. REVIEW OF SYSTEMS: Per history of present illness (HPI). 12-point system otherwise negative aside from positive findings on history of present illness. PHYSICAL EXAMINATION: VITAL SIGNS: Blood pressure 138/73, pulse 103 sinus, respiratory rate 18, temperature 99.4, 95% on room air. Weight is 78.02 kg, 5 feet 2 inches tall. GENERAL: Patient is awake, alert, oriented times three, answering questions appropriately. No icterus. No jaundice. No respiratory distress. Able to speak in full sentences. HEENT: Face is symmetric. Pupils equally round, reactive to light and accommodation. Extraocular muscles are intact. Normocephalic, atraumatic. No thyromegaly. No jugular venous distention. No cervical lymphadenopathy. Patient has a notable right axillary lymphadenopathy measuring about 1 cm, mobile, nontender. LUNGS: Clear to auscultation. No wheezing, rales or rhonchi. HEART: S1, S2, sinus tachycardia. No murmurs, rubs or gallops. ABDOMEN: Soft, tender diffusely. No rebound or guarding. Positive bowel sounds times four quadrants, but is hypoactive. EXTREMITIES: No cyanosis, clubbing or pitting edema. LABORATORY DATA: White count 22.6, hemoglobin 11.3, hematocrit 36.5, platelet count 192, 50% neutrophils. Sodium 137, potassium 4.4, chloride 100, bicarbonate 26, BUN 13, creatinine 1.19 , glucose 104, calcium of 8.6. Liver profile: AST 19, ALT 26, alkaline phosphatase 110. Total bilirubin 0.5, direct bilirubin 0.2, total protein 6.5, albumin 3.6, amylase 41, lipase 211. Cloudy urine, yellow color, 1+ protein, positive nitrites, 3+ leukocyte esterase , 1+ blood, too numerous to count WBCs, 2+ bacteria. Prothrombin time 22.5, INR 1.97, PTT 31. CT abdomen and pelvis with contrast shows bilateral linear lobular infiltrates, extensive right axillary lymphadenopathy noted with a dominant lymph node measuring 3.4 x 3.4 cm, a precarinal lymph node measures 2.4 x 1.5 cm. Liver, spleen, pancreas, kidneys, gallbladder, adrenal glands are unremarkable. Aorta is within normal limits. There is severe extensive retroperitoneal and abdominal lymphadenopathy with mass-like structures throughout the mesentery. A large central abdominal mass measures 10 x 5 at the GE junction with an irregular mass extending into gastric lumen measuring 6.4 x 4.6 cm. The bowel is unremarkable with no obstructive or inflammatory changes. Urinary bladder is within normal limits. No evidence of pelvic ascites. Bilateral pelvic lymphadenopathy is noted. No suspicious osseous abnormalities. Several multilevel degenerative disc disease with mild dextroscoliosis. 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 ASSESSMENT AND PLAN: This is an 81-year-old female with history of chronic lymphocytic leukemia (CLL), pulmonary embolism (PE) on chronic Coumadin, hypothyroidism, presents to the emergency room with 7-day history of abdominal pain without nausea, vomiting, decrease in weight, but with anorexia. No fever or chills, dysuria, urgency, frequency, presents to the emergency room for evaluation, was found to have significant lymphadenopathy, as well as masses in the gastroesophageal (GE) junction suspicious for lymphoma. Patient has refused transfer to [place] to followup with her medical oncologist, Dr. Karimi and insists on remaining at [facility]. Also refusing to obtain a biopsy without speaking with her . Current issues are as follows: 1. Abdominal and pelvic lymphadenopathy with axillary lymph node felt on clinical exam suspicious for possible lymphoma. Patient is refusing biopsy at this time until she speaks with her . She is refusing interruption of her Coumadin at this time until she makes a decision. Defer to the patient and her family. Consult medical oncologist here in [place].The patient is refusing transfer to [facility] stating "I want to stay here, " despite having all her cancer treatment managed by her [place] physician, Dr. Karimi. 2. CLL. Monitor for acute leukemia. Check peripheral blood smear. Blasts on CBC with differential was concerning and discussed with medical oncologist Dr. Radha Lee who was allied health professional. 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 Dr. Lee recommendation if for a discussion to occur between the patient and her grown children/family regarding decision to receive treatment here in [place] versus continue with her oncologist in [place]. The patient does not want to be transferred to [place] and wants to stay at [facility]. Will defer to Dr. Horan to coordinate care with Dr. Lee and speak w family. 3. History of PE on chronic Coumadin. Patient is refusing interruption for possible biopsy until she speaks with her . Therefore, will continue Coumadin for now. Will need to bridge with intravenous heparin for planned biopsy if she is agreeable to biopsying her lymphadenopathy or undergoing esophagogastroduodenoscopy (EGD). 4. Hypothyroidism. Continue on Synthroid. 5. Electrolyte abnormalities. Continue potassium and magnesium. 6. Vitamin deficiencies. Continue vitamin C and vitamin D. 7. History of CLL. Obtain records from Dr. Karimi. Dr. Horan to speak with Dr. Karimi in the morning is highly recommended to discuss overall plans for the patient. [facility]
[2017-01-21 05:05] VITALS: BP 134/69
[2017-01-21 05:37] LABS: DIFF SLIDE NUMBER 87; MEAN CORPUSCULAR HEMOGLOBIN 28.2 pg (27.0-33.0); MEAN CORPUSCULAR HGB CONC 31.2 g/dl (32.0-36.5); MEAN CORPUSCULAR VOLUME 90.4 fl (80.0-96.0); PLATELET COUNT, AUTOMATED 170 k/mm3 (150-450); RED CELL DISTRIBUTION WIDTH 15.3 % (11.5-14.5)
--- NOTE | 2017-01-21 05:37 | IPN ---
DATE OF VISIT: 01/21/2017 The patient's CBC differential showed 3% bands. I have spoken with Dr. Radha Lee , medical oncologist continuity writer this evening to discuss whether the patient is appropriate to be kept at [facility] in light of possible acute leukemia. 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 The patient refused to be transferred to [place] this evening. I have discussed with her that her oncologist is in [place] and that she is most likely best served if she follows with him, especially with acute issues of potential new diagnosis of lymphoma or transformed CLL. The patient wanted to speak with the family but refused transfer to [place] at this time. I will relay this message to Dr. Delroy Horan at 7 a.m. on 01/21/[address] Radha Lee and the patient's family regarding the overall plan for her care. MICHELLE
[2017-01-21 06:03] LABS: ALBUMIN/GLOBULIN RATIO 1.07 (1.00-1.93); BILIRUBIN,TOTAL 0.3 MG/DL (0.2-1.0); CREATININE FOR GFR 0.98 MG/DL (0.55-1.02); GLOMERULAR FILTRATION RATE 58.1 (>32); POTASSIUM SERUM 4.2 MEQ/L (3.5-5.1); TOTAL PROTEIN 5.8 GM/DL (6.4-8.2)
[2017-01-21 06:52] LABS: EOSINOPHILS 3 % (0-5); NUCLEATED RED BLOOD CELL 1 % (0-0)
[2017-01-21 06:53] LABS: SMUDGE CELLS 2+
[2017-01-21 06:54] LABS: ANISOCYTOSIS 1+
[2017-01-21 06:55] LABS: TEAR DROP CELLS 1+
[2017-01-21 08:00] VITALS: BP 123/67
[2017-01-21] MEDS ORDERED: ENOXAPARIN 30 MG/0.3 ML SYR (J1650) SC SCH (09:00)
[2017-01-21] MEDS: PANTOPRAZOLE 40MG TAB (PROTONIX) PO SCH (11:01)
[2017-01-21] MEDS: SENOKOT S TAB PO SCH ×2 (11:02→21:00)
[2017-01-21] MEDS: MIRALAX *UNIT DOSE* 17GM PACKET PO SCH (11:03)
[2017-01-21 12:00] VITALS: BP 152/68
[2017-01-21 13:11] VITALS: BP 129/62
--- NOTE | 2017-01-21 13:30 | IPN ---
DATE OF SERVICE: 01/21/2017 The patient seen and examined. No acute events overnight. Reported abdominal distention and pain much improved. Is hungry. Denies any fevers or chills, chest pain, pressure, or discomfort. Denies any nausea or vomiting. VITAL SIGNS: Temperature 99.2, pulse 99, respiration 18, blood pressure 152/68, pulse oximetry 93% on room air. LABORATORY: WBC 21, hemoglobin and hematocrit 9.7 over 31.1, platelets 170. Chemistry: Sodium 138, potassium 4.2, chloride 104, bicarbonate 24, BUN 10, creatinine 0.98, lactic acid 1.4. PHYSICAL EXAMINATION: General: The patient awake, alert, oriented times three, answering questions appropriately. HEENT: Normocephalic, atraumatic. Pulmonary: Bilateral clear to auscultation. No wheeze, rales, or rhonchi. Cardiac: Regular S1, S2. Abdomen: Diffusely tender, soft, no rebound, no guarding, positive bowel sounds. Extremities: No clubbing, cyanosis, or edema. ASSESSMENT AND PLAN: This is an 81-year-old female patient with underlying medical history of chronic lymphocytic leukemia (CLL), pulmonary embolism (PE), on Coumadin, hypothyroidism, presented to the emergency room with 7-day history of abdominal pain without nausea, vomiting, decreased weight, poor by mouth intake. No fevers, chills, dysuria, urgency, frequency, presented to the emergency room, was found to have significant intraabdominal and intrathoracic lymphadenopathy, as well as gastroesophageal (GE) junction mass suspicious for lymphoma. The patient refused transfer to [place], where her oncology practice, Dr. Karimi. Insists on remaining at [facility]. Understands that [facility] does not offer inpatient chemotherapy. 1. Abdominal, pelvic, and thoracic lymphadenopathy with axilla lymph node, possibly secondary to lymphoma with underlying CLL. The case was discussed with the patient. The patient stated that she will not want to be transferred unless some kind of chemotherapy regimen will be offered to her at her destination in [place]. The case was discussed with Dr. Karimi, who said based on her WBC of 21, which is reasonable for a patient with CLL, there is no immediate need for her to be transferred but would like to see her abdominal CT scan, which was instructed for the community service coordinator to be arranged to send it to Dr. Karimi. The case was discussed with Dr. Radha Lee, our hematology oncologist health and nutrition specialist. Would like to further work up the GE junction mass. Dr. Conn was consulted. Will followup. 2. Leukocytosis with abdominal discomfort. The patient empirically started on meropenem. Will continue to follow. Followup cultures. 3. History of chronic lymphocytic leukemia. Will followup. Peripheral smear appreciated. The case discussed with Dr. Rdaha Lee and Dr. Karimi. Will wait Dr. Karimi's recommendation after evaluation of CT scan. The patient refuses to be transferred to [facility]. 4. History of pulmonary embolism, on Coumadin. Currently, on treatment dose of Lovenox. Coumadin on hold for possible esophagogastroduodenoscopy (EGD). Followup international normalized ratio (INR). Dr. Conn has been consulted. 5. Hypothyroidism. Continue Synthroid. 6. Vitamin deficiencies. Continue medication as ordered. 7. Constipation. Bowel regimen is given. 8. Gastroesophageal reflux disease (GERD). Continue proton pump inhibitor (PPI). 9. Deep venous thrombosis (DVT) prophylaxis. The patient on treatment-dosed Lovenox. DISPOSITION: Pending further recommendation from Dr. Radha Lee, Dr. Conn, and Dr. Karimi.
[2017-01-21] MEDS ORDERED: E-Z-HD 98% w/w 340GM SUSP BTL As Ordered ONE (14:20)
[2017-01-21] MEDS ORDERED: E-Z-GAS II EFFERVESCENT PACKET (SODIUM BICARB./CITRIC ACID/SIMETHICONE) As Ordered ONE (14:20)
[2017-01-21] MEDS ORDERED: E-Z PAQUE 60% w/v SUSP 355ML BOTTLE As Ordered ONE (14:21)
[2017-01-21] MEDS: MEROPENEM INJ 1 GM in D5W MINI-BAG PLUS 100 ML IV SCH (16:09)
--- NOTE | 2017-01-21 17:45 | REP ---
Upper GI esophagram: History: History of chronic lymphoma with extensive adenopathy. Question of gastroesophageal junction mass on CT study from 01/20/2017. Findings: Preliminary windows and doors installer image demonstrates some retained orally administered CT contrast. Intravenously administered contrast is seen opacifying the urinary bladder. There is vascular calcification. Degenerative changes are seen in the lumbar spine. The gastroesophageal junction is patent without evidence of mass or stricture. Reflux was not witnessed. The stomach demonstrates normal rugal folds. No gastric mass is seen. Pylorus is smooth. Duodenal bulb and C-loop are unremarkable. There are tertiary esophageal contractions. Fluoroscopy time is 1 minute 31 seconds. Impression: Tertiary esophageal contractions. Otherwise negative esophagram and upper GI. No evidence of mass in the gastroesophageal junction. Signed by Caden Steel MD 01/21/2017 08:05 P
[2017-01-21] MEDS: ENOXAPARIN 80 MG/0.8 ML SYRINGE (J1650) SC SCH (21:43)
[2017-01-21 22:00] VITALS: BP 138/67
[2017-01-21] MEDS ORDERED: LORazepam 0.5 MG TAB PO ONE (23:00)
[2017-01-22] MEDS: MEROPENEM INJ 1 GM in D5W MINI-BAG PLUS 100 ML IV SCH ×2 (04:21→15:24)
[2017-01-22 05:46] LABS: DIFF SLIDE NUMBER 44; MEAN CORPUSCULAR HEMOGLOBIN 29.4 pg (27.0-33.0); MEAN CORPUSCULAR HGB CONC 32.4 g/dl (32.0-36.5); MEAN CORPUSCULAR VOLUME 90.8 fl (80.0-96.0); PLATELET COUNT, AUTOMATED 172 k/mm3 (150-450); RED CELL DISTRIBUTION WIDTH 15.4 % (11.5-14.5)
[2017-01-22 05:52] LABS: INR 2.18
[2017-01-22 06:00] VITALS: BP 145/71
[2017-01-22 06:02] LABS: ALBUMIN 2.9 GM/DL (3.2-5.2); ALBUMIN/GLOBULIN RATIO 1.04 (1.00-1.93); ALKALINE PHOSPHATASE 80 U/L (45-117); ALT/SGPT 19 U/L (12-78); ANION GAP 8 MEQ/L (8-16); AST/SGOT 14 U/L (15-37); BILIRUBIN,TOTAL 0.4 MG/DL (0.2-1.0); BLOOD UREA NITROGEN 9 MG/DL (7-18); CARBON DIOXIDE LEVEL 25 MEQ/L (21-32); CHLORIDE LEVEL 106 MEQ/L (98-107); CREATININE FOR GFR 0.92 MG/DL (0.55-1.02); GLOMERULAR FILTRATION RATE > 60.0 (>32); GLUCOSE, FASTING 96 MG/DL (83-110); POTASSIUM SERUM 3.8 MEQ/L (3.5-5.1); SODIUM LEVEL 139 MEQ/L (136-145); TOTAL PROTEIN 5.7 GM/DL (6.4-8.2)
[2017-01-22] MEDS: LEVOTHYROXINE 0.1 MG TAB (100 MCG) PO SCH (06:05)
[2017-01-22 06:18] LABS: EOSINOPHILS 6 % (0-5)
[2017-01-22 06:19] LABS: ANISOCYTOSIS 1+; SMUDGE CELLS 1+; TEAR DROP CELLS 1+
[2017-01-22] MEDS: PANTOPRAZOLE 40MG TAB (PROTONIX) PO SCH (08:47)
[2017-01-22] MEDS: ENOXAPARIN 80 MG/0.8 ML SYRINGE (J1650) SC SCH ×2 (08:47→21:01)
[2017-01-22] MEDS: SENOKOT S TAB PO SCH ×2 (08:47→19:44)
[2017-01-22] MEDS: MIRALAX *UNIT DOSE* 17GM PACKET PO SCH (08:47)
--- NOTE | 2017-01-22 08:49 | CR ---
DATE OF CONSULTATION: 01/21/2017 Indication for consultation is CT abnormality at gastroesophageal (GE) junction with extensive lymphadenopathy. BRIEF HISTORY OF PRESENT ILLNESS: Patient is an 81-year-old female who has had a longstanding history of chronic lymphocytic leukemia and has been undergoing treatment until last month when she was stopped for a right knee surgery. Since that time, she has not been on her medications and missed a followup appointment secondary to just getting out of the hospital and ended up not starting back on her chemotherapy medication. There was increasing pain discomfort over the last several weeks. However, it was worse on the day of admission with chronic pain that feels like someone has a pulling sensation, radiates into her back, causes discomfort in that area as well. The past medical history is significant for history of chronic lymphocytic leukemia (CLL), pulmonary embolism, hypothyroidism, right knee arthroplasty, cataract surgery, appendectomy, hysterectomy. Medications include: - magnesium - potassium - Synthroid - Coumadin - sertraline PHYSICAL EXAMINATION: Reveals an elderly female, looks stated age. HEENT is unremarkable. She has significant right axillary adenopathy and some additional left axillary adenopathy clearly seen on the CT scan but easily palpable. Lungs are clear. Heart is regular. Abdomen is softly distended. She has a mass-like effect in the mid abdomen consistent with her CAT scan as well. On her CAT scan, she does indeed have some significant axillary adenopathy on the right-hand side and less on the left, but significant lymph nodes throughout. There is some question of the GE junction tumor but I anticipate this is just the lymph nodes that have been in continuity from the abdominal enlarged lymph nodes. There is a portion of the lymph nodes, which I can measure in the abdomen that looks to be about 11 x 15 cm. IMPRESSION/PLAN: Patient has abdominal discomfort pain because of this enlarging lymphadenopathy. At this point, she has no evidence of peritoneal signs. No evidence of infarcted bowel, although, unfortunately if she does not have progression of this tumor I anticipate that she will either have obstructive component or she will have infarction of her blood vessels and thus, I would recommend aggressive treatment for these. For evaluation of the GE junction, an upper endoscopy is not unreasonable. Although, she is on anticoagulations and my suspicion for a lesion at the GE junction without evidence of dysphasia is extremely unlikely if this was an esophageal or stomach cancer that was metastatic to lymph nodes such as the presumption might be is this would be metastatic to liver and elsewhere. Thus, it does not fit that typical presentation or category. I would recommend an upper GI. If this shows no significant evidence of abnormality obstruction, then progressing her diet as tolerated is reasonable and thereafter you can consult me if there is any additional questions or concerns. MTDD
[2017-01-22 14:00] VITALS: BP 139/60
--- NOTE | 2017-01-22 17:51 | IPNPDOC ---
Subjective Date Seen The patient was seen on 01/22/17. Subjective Chief Complaint/HPI The patient is a 81-year-old female admitted with a reason for visit of Lymphadenopathy Abdominal. Events since last encounter no acute events. tolerating oral. reported abd pain improved. denied cp/n/v/ sob General: Denies: Chills, Fatigue, Malaise Constitutional: Reports: Weakness, Denies: Chills, Fever, Night Sweats Eyes: Denies: Pain, Vision change ENT: Denies: Ear Pain, Head Aches Skin: Denies: Lesions, Rash Pulmonary: Denies: Cough, Dyspnea Cardiovascular: Denies: Chest Pain, Palpitations Gastrointestinal: Denies: Abdominal Pain, Nausea, Vomiting Genitourinary: Denies: Dysuria, Frequency Neurological: Denies: Numbness, Weakness Objective Physical Examination General Exam: Positive: Alert, Cooperative, No Acute Distress Eye Exam: Positive: EOMI, PERRLA ENT Exam: Positive: Atraumatic, Mucous membr. moist/pink Neck Exam: Positive: Supple Chest Exam: Positive: Clear to auscultation, Normal air movement Heart Exam: Positive: Normal S1, Normal S2, Rate Normal, Regular Rhythm Abdomen Exam: Positive: Normal bowel sounds, Soft, Negative: Tenderness Extremity Exam: Negative: Clubbing, Edema Assessment /Plan Problems (1) Abdominal pain Status: Acute Problem Text: improved ct showed abd lymphadenopathy, see bellow diet advance, pain med surgery Dr Conn consulted (2) Lymphadenopathy Status: Acute Problem Text: DDX worsening CLL vs acute lymphoma Esophageal mass evaluaed upper GI series neg, likely lymphadenopathy Surgery Dr Conn consulted case discussed with Dr Karimi pt's oncology, image study sent to her office Dr Aden consulted patient refused transfer to [facility], aware receiving sub-optimal care given inpatient chemo not available at [facility] peripheral smear appreciated (3) Generalized weakness Status: Acute Problem Text: likely secondary to underlying malignancy, PT, see above (4) PE (pulmonary embolism) Status: Chronic Problem Text: coumadin on hold, for possible procedures f/u INR restart coumadin when possible lovenox SQ BID (5) HTN (hypertension) Status: Chronic Problem Text: c/w med (6) Hypothyroid Status: Chronic Problem Text: c/w med (7) GERD (gastroesophageal reflux disease) Status: Chronic Problem Text: ppi (8) Constipation Status: Chronic Problem Text: bowel reg (9) Leukocytosis Status: Acute Problem Text: possible 2/2 worsening CLL vs infection UTI f/u culture alan peripheral smear apreciated Plan/VTE VTE Prophylaxis Ordered?: Yes (Lovenox SQ for PE treatement) Disposition Pending PT, oncology, VS, I&O, 24H, Fishbone Vital Signs/I&O Vital Signs Date Time Temp Pulse Resp B/P Pulse Ox O2 Delivery O2 Flow Rate FiO2 01/22/17 14:00 99.3 98 20 139/60 90 Room Air I&O- Last 24 Hours up to 6 AM 01/22/17 05:59 Intake Total 410 ml Output Total 400 ml Balance 10 ml Laboratory Data 24H LABS Laboratory Tests 2 01/22/17 05:14: Blood Urea Nitrogen 9, Creatinine 0.92, Sodium Level 139, Potassium Level 3.8, Chloride Level 106, Carbon Dioxide Level 25, Calcium Level 8.0L, Aspartate Amino Transf (AST/SGOT) 14L, Alanine Aminotransferase (ALT/SGPT) 19, Alkaline Phosphatase 80, Total Bilirubin 0.4, Total Protein 5.7L, Albumin 2.9L, Albumin/ Globulin Ratio 1.04, Anion Gap 8, Anisocytosis 1+, Atypical Lymphocytes 8H, Eosinophils (Manual) 6H, Glomerular Filtration Rate > 60.0, Lymphocytes (Manual ) 60H, Neutrophils 26L, Platelet Estimate NORMAL, Prothromb Time International Ratio 2.18, Prothrombin Time 24.3H, Smudge Cells 1+, Tear Drop Cells 1+ CBC/BMP Laboratory Tests 01/22/17 05:14 Calcium Level 8.0 L, Aspartate Amino Transf (AST/SGOT) 14 L, Alanine Aminotransferase (ALT/SGPT) 19, Alkaline Phosphatase 80, Total Bilirubin 0.4, Total Protein 5.7 L, Albumin 2.9 L, Red Blood Count 3.32 L, Mean Corpuscular Volume 90.8, Mean Corpuscular Hemoglobin 29.4, Mean Corpuscular Hemoglobin Concent 32.4, Red Cell Distribution Width 15.4 H Microbiology Microbiology 01/20/17 Blood Culture - Preliminary, Resulted No growth after 24 hours . All specim... 01/20/17 Urine Culture - Final, Complete Serratia Marcescens CIARAN JAMES MD Jan 22, 2017 17:51
--- NOTE | 2017-01-22 20:29 | IPNPDOC ---
Date Seen The patient was seen on 01/22/17. Progress Note SUBJECTIVE: Patient stated that she gets anxious at night and that the Ativan that I gave her helped her sleep last night. ASSESSMENT AND PLAN: This is a 81y/o F currently treated for abd lymphadenopathy , with anxiety. I scheduled a PRN dose of Ativan at night for her sleep. Pt understands that it will not be provided if she does not ask for it. VS, I&O, 24H, Fishbone Vital Signs/I&O Vital Signs Date Time Temp Pulse Resp B/P Pulse Ox O2 Delivery O2 Flow Rate FiO2 01/22/17 14:00 99.3 98 20 139/60 90 Room Air I&O- Last 24 Hours up to 6 AM 01/22/17 06:00 Intake Total 410 ml Output Total 400 ml Balance 10 ml Laboratory Data 24H LABS Laboratory Tests 2 01/22/17 05:14: Blood Urea Nitrogen 9, Creatinine 0.92, Sodium Level 139, Potassium Level 3.8, Chloride Level 106, Carbon Dioxide Level 25, Calcium Level 8.0L, Aspartate Amino Transf (AST/SGOT) 14L, Alanine Aminotransferase (ALT/SGPT) 19, Alkaline Phosphatase 80, Total Bilirubin 0.4, Total Protein 5.7L, Albumin 2.9L, Albumin/ Globulin Ratio 1.04, Anion Gap 8, Anisocytosis 1+, Atypical Lymphocytes 8H, Eosinophils (Manual) 6H, Glomerular Filtration Rate > 60.0, Lymphocytes (Manual ) 60H, Neutrophils 26L, Platelet Estimate NORMAL, Prothromb Time International Ratio 2.18, Prothrombin Time 24.3H, Smudge Cells 1+, Tear Drop Cells 1+ CBC/BMP Laboratory Tests 01/22/17 05:14 Calcium Level 8.0 L, Aspartate Amino Transf (AST/SGOT) 14 L, Alanine Aminotransferase (ALT/SGPT) 19, Alkaline Phosphatase 80, Total Bilirubin 0.4, Total Protein 5.7 L, Albumin 2.9 L, Red Blood Count 3.32 L, Mean Corpuscular Volume 90.8, Mean Corpuscular Hemoglobin 29.4, Mean Corpuscular Hemoglobin Concent 32.4, Red Cell Distribution Width 15.4 H Microbiology Microbiology 01/20/17 Blood Culture - Preliminary, Resulted No Growth after 48 hours. All Specime... 01/20/17 Urine Culture - Final, Complete Serratia Marcescens HAM VALDES DO Jan 22, 2017 20:29
[2017-01-22] MEDS ORDERED: LORazepam 0.5 MG TAB PO PRN (20:30)
[2017-01-22 22:00] VITALS: BP 123/65
--- NOTE | 2017-01-23 02:13 | EDDOCDS ---
Nurse's Notes [facility] Name: Lizzy Bray Age: 81 yrs Sex: Female : 1935 Arrival Date: 01/20/2017 Time: 19:10 Bed 13 Private MD: Tiffany Muñiz ANP Diagnosis: Abdominal and pelvic pain;Leukemia, unspecified;Urinary tract infection, site not specified;Other types of follicular lymphoma, intra-abdominal lymph nodes Presentation: 01/20 19:14 Presenting complaint: states: n/d and abd pain and "squeezing" x7 days. Pt ttb pale. Abd pain increasing. States her stomach is distended and swelling.... Adult Sepsis Screening: The patient does not have new or worsening altered mentation. Patient's respiratory rate is less than 22. Systolic blood pressure is greater than 100. Patient has a qSOFA score of 0- Negative Sepsis Screen. Suicide/Homicide risk assessment- the patient denies having any suicidal and/or homicidal ideations and does not present with any other emotional, behavioral or mental health complaints. Status: Patient is not a client service executive or dependent. Transition of care: patient was not received from another setting of care. 19:14 Acuity: MAGO Level 3 ttb 19:14 Method Of Arrival: Walkin/Carried/Asstd ttb Triage Assessment: 19:20 General: Appears ill, uncomfortable, well nourished, well groomed, Behavior is anxious, ttb appropriate for age, cooperative, flat, pleasant, quiet. Pain: Location: abd 8/10. Neurological: Level of Consciousness is awake, alert. Cardiovascular: Chest pain is denied. Respiratory: No deficits noted. Airway is patent Respiratory effort is even, unlabored. GI: Reports bloating, diarrhea, gaseousness, lower abdominal pain, upper abdominal pain, nausea, vomiting. Derm: Skin is pale. Musculoskeletal: Range of motion limited in right knee d/t recent surgery. Injury Description: No known injury. Historical: - Allergies: rotuxin; PENICILLINS; ofatumumab; Doxycycline; chemo drugs; Avelox; - Home Meds: 1. Magnesium Oxide Oral 400 mg daily (Last dose: 01/20/2017 08:00) 2. Klor-Con M20 20 mEq Oral TbTQ 1 tab once daily 3. levothyroxine 100 mcg Oral cap once daily (Last dose: 01/20/2017 07:00) 4. Vitamin C Oral daily (Last dose: 01/20/2017 07:00) 5. Vitamin D Oral 2000 unit daily (Last dose: 01/20/2017 08:00) 6. Imbruvica 140 mg oral cap once daily Not taking at this time off since Nov 25 7. Coumadin 2.5 mg Oral tab 1 tab once daily 5mg tomorrow (Last dose: 01/20/2017 08:00) 8. Sertraline 25 mg daily (Last dose: 01/20/2017 08:00) - PMHx: Hypothyroidism; Leukemia; PE; CLL; - PSHx: right knee arthroplasty; Cataract Surgery- Bilateral; Appendectomy; Hysterectomy; - Social history: Smoking status: Patient states was never smoker of tobacco. Patient/guardian denies using alcohol, street drugs, No barriers to communication noted, The patient speaks fluent Trinid[place], Speaks appropriately for age. - Family history: Not pertinent. - : The pt / caregiver states he / she is on anticoagulants: coumadin. Home medication list is obtained from the patient. - Exposure Risk Screening:: None identified. - History obtained from: . Screenin:47 Screening information is obtained from the patient. Fall risk: No risks identified. jmb Assistance ADL's: requires no assistance with activities of daily living. Abuse/DV Screen: The patient / caregiver reports he/she is: not in a situation that causes fear, pain or injury. Nutritional screening: No deficits noted. home support is adequate. 01/21 00:57 Advance Directives: Currently, there is no health care proxy. There is no active DNR jmb order. There is no living will. There is no Power of Materials Buyer. Assessment: 01/20 19:47 General: Appears ill, Behavior is appropriate for age, cooperative. Pain: Location: [facility] abdomen Pain currently is 9 out of 10 on a pain scale. Neurological: Level of Consciousness is awake, alert, obeys commands, Oriented to person, place, time, Speech is normal, Facial symmetry appears normal, Facial symmetry: tongue is midline. Cardiovascular: Capillary refill < 3 seconds Heart tones present Pulses are all present. Rhythm is regular. Respiratory: Airway is patent Respiratory effort is even, unlabored, Respiratory pattern is regular, symmetrical, Breath sounds are diminished bilaterally. GI: Abdomen is distended, Bowel sounds present X 4 quads. hypoactive in right upper quadrant, left upper quadrant, right lower quadrant and left lower quadrant Abd is tender to palpation X 4 quads. Abd is rigid X 4 quads. Derm: Skin is pale. Musculoskeletal: Range of motion intact in all extremities. 20:30 General: Appears in no apparent distress, Behavior is appropriate for age, cooperative, jmb Patient laying on stretcher with at bedside. No voiced complaints at this time. . Neurological: Level of Consciousness is awake, alert, obeys commands, Oriented to person, place, time. Respiratory: Airway is patent Respiratory effort is even, unlabored, Respiratory pattern is regular, symmetrical. 21:00 General: Appears in no apparent distress, Behavior is appropriate for age, cooperative, jmb Patient laying on stretcher with at bedside. NO voiced complaints at this time. . Neurological: Level of Consciousness is awake, alert, obeys commands, Oriented to person, place, time. Respiratory: Airway is patent Respiratory effort is even, unlabored, Respiratory pattern is regular, symmetrical. 21:35 General: Appears in no apparent distress, Behavior is appropriate for age, cooperative. jmb General: Patient laying on stretcher, appears comfortable. NO voiced complaints at this time. . Neurological: Level of Consciousness is awake, alert, obeys commands, Oriented to person, place, time. Respiratory: Airway is patent Respiratory effort is even, unlabored, Respiratory pattern is regular, symmetrical. 22:00 General: Appears in no apparent distress, Behavior is appropriate for age, cooperative. jmb Neurological: Level of Consciousness is awake, alert, obeys commands, Oriented to person, place, time. Respiratory: Airway is patent Respiratory effort is even, unlabored, Respiratory pattern is regular, symmetrical. 22:32 General: Appears in no apparent distress, comfortable, Behavior is appropriate for age, jmb cooperative, Patient returned from CT, up to bathroom. NO voiced complaints at this time. . Neurological: Level of Consciousness is awake, alert, obeys commands, Oriented to person, place, time. Respiratory: Airway is patent Respiratory effort is even, unlabored, Respiratory pattern is regular, symmetrical. 23:00 General: Appears in no apparent distress, comfortable, Behavior is appropriate for age, jmb cooperative. Neurological: Level of Consciousness is awake, alert, obeys commands, Oriented to person, place, time. Respiratory: Airway is patent Respiratory effort is even, unlabored, Respiratory pattern is regular, symmetrical. 23:36 General: Appears in no apparent distress, comfortable, Behavior is appropriate for age, jmb cooperative, Patient laying on stretcher with at bedside. No voiced complaints at this time. . Neurological: Level of Consciousness is awake, alert, obeys commands, Oriented to person, place, time. Respiratory: Airway is patent Respiratory effort is even, unlabored, Respiratory pattern is regular, symmetrical. 01/21 00:30 General: Appears in no apparent distress, comfortable, Behavior is appropriate for age, jmb cooperative. Neurological: Level of Consciousness is awake, alert, obeys commands, Oriented to person, place, time. Respiratory: Airway is patent Respiratory effort is even, unlabored, Respiratory pattern is regular, symmetrical. 01:06 General: Appears in no apparent distress, comfortable, Behavior is appropriate for age, jmb cooperative, Patient laying on stretcher, no voiced complaints at this time. . Neurological: Level of Consciousness is awake, alert, obeys commands, Oriented to person, place, time. Respiratory: Airway is patent Respiratory effort is even, unlabored, Respiratory pattern is regular, symmetrical. Vital Signs: 01/20 19:12 BP 138 / 73; Pulse 103; Resp 18; Temp 99.4(O); Pulse Ox 95% on R/A; Weight 78.02 kg lr2 (R); Height 5 ft. 2 in. (157.48 cm) (R); Pain 8/10; 20:12 BP 141 / 70 (auto/); jmb 20:12 Pulse 88 MON; Pulse Ox 93% ; jmb 20:27 BP 135 / 74 (auto/); jmb 20:27 Pulse 86 MON; Pulse Ox 93% ; jmb 20:42 BP 140 / 80 (auto/); jmb 20:42 Pulse 88 MON; Pulse Ox 93% ; jmb 20:57 BP 146 / 67 (auto/); jmb 20:57 Pulse 86 MON; Pulse Ox 94% ; jmb 21:12 BP 140 / 69 (auto/); jmb 21:12 Pulse 90 MON; Pulse Ox 94% ; jmb 21:27 BP 148 / 76 (auto/); jmb 21:27 Pulse 92 MON; Pulse Ox 96% ; jmb 21:42 BP 141 / 69 (auto/); jmb 21:42 Pulse 98 MON; Pulse Ox 95% ; jmb 21:57 BP 137 / 74 (auto/); jmb 21:57 Pulse 100 MON; Pulse Ox 92% ; jmb 22:12 BP 135 / 74 (auto/); jmb 22:12 Pulse 100 MON; Pulse Ox 92% ; jmb 22:42 BP 134 / 65 (auto/); jmb 22:42 Pulse 94 MON; Pulse Ox 91% ; jmb 22:57 BP 132 / 67 (auto/); jmb 22:57 Pulse 94 MON; Pulse Ox 91% ; jmb 23:12 BP 131 / 70 (auto/); jmb 23:12 Pulse 92 MON; Pulse Ox 90% ; jmb 23:27 BP 121 / 65 (auto/); jmb 23:27 Pulse 92 MON; Pulse Ox 92% ; jmb 23:42 BP 135 / 70 (auto/); jmb 23:42 Pulse 90 MON; Pulse Ox 92% ; jmb 23:57 BP 123 / 67 (auto/); jmb 23:57 Pulse 92 MON; Pulse Ox 93% ; jmb 01/21 00:12 BP 129 / 70 (auto/); jmb 00:12 Pulse 90 MON; Pulse Ox 93% ; jmb 00:27 BP 118 / 59 (auto/); jmb 00:27 Pulse 88 MON; Pulse Ox 93% ; jmb 00:42 BP 119 / 63 (auto/); jmb 00:42 Pulse 88 MON; Pulse Ox 92% ; jmb 00:57 BP 118 / 63 (auto/); jmb 00:57 Pulse 90 MON; Resp 20; Temp 99.0(O); Pulse Ox 92% ; Pain 0/10; jmb 01/20 19:12 Body Mass Index 31.46 (78.02 kg, 157.48 cm) lr2 Vitals: 01/20 19:12 Log In Time: January 20, 2017 at 19:10. lr2 ED Course: 19:12 Patient visited by Kayla Gil. lr2 19:12 Patient moved to Waiting lr2 19:13 Tiffany Muñiz is Private Physician. lr2 19:16 Patient moved to Pre RCE lr2 19:17 Triage Initiated ttb 19:22 Patient moved to 13 ttb 19:26 Jace Tanner DO is Attending Physician. cs11 19:26 Patient visited by Jace Tanner DO. cs11 19:47 The patient / caregiver is instructed regarding the plan of care and ED course. jmb 19:47 Lactic Acid (Marquez tube on ice) Sent. jmb 19:47 -Blood Culture Sent. jmb 19:47 Inserted saline lock: 20 gauge in right antecubital area and blood collected. The jmb patient tolerated the procedure well. Labs drawn. (by ED staff). Sent per order to lab. Labs/Blood culture drawn. 19:49 Patient visited by Joon Britton RN. jmb 20:24 DIFFERENTIAL NO CHARGE Sent. cln 20:31 Patient visited by Joon Britton RN. jmb 21:01 Patient visited by Joon Britton RN. jmb 21:38 Patient visited by Joon Britton RN. jmb 21:42 Patient visited by Kayla Cohn PCA. mallory 21:42 Assisted to bedside commode. mallory 21:42 Urine Culture Sent. mallory 21:42 Urinalysis Sent. mallory 22:00 Patient visited by Joon Britton RN. jmb 22:33 Patient visited by Joon Britton RN. jmb 22:52 CT ABD & PELVIS: IV and Oral Contrast Returned. EDMS 23:01 Patient visited by Joon Britton RN. jmb 23:28 Nora Combs is Hospitalizing Provider. cs11 23:36 Patient visited by Joon Britton RN. jmb 01/21 00:52 [facility] [place] was scanned into [employer] and attached to record. hs2 00:57 No procedures done that require assistance. jmb 10:29 T-Sheet-- Draft Copy was scanned into [employer] and attached to record. gb Administered Medications: 01/20 19:54 Drug: NS 0.9% 500 ml [sodium chloride 0.9 % intravenous solution] Route: IV; Rate: jmb bolus; Site: right antecubital; 21:35 Follow up: IV Status: Completed infusion jmb 20:40 Drug: Diatrizoate Meglumine & Sodium 10 ml [diatrizoate meglumine and diat.sodium 66 jmb %-10 % oral solution (10 mL)] Route: PO; 21:34 Follow up: Response: No Adverse Reaction jmb 20:43 Drug: NS 0.9% 500 ml [sodium chloride 0.9 % intravenous solution] Route: IV; Rate: jmb bolus; Site: right antecubital; 21:00 Drug: Metoclopramide 10 mg [metoclopramide 5 mg/mL injection solution] Route: IV; Rate: jmb 40 mg/hr; Infused Over: 15 mins; Site: right antecubital; 21:00 Drug: morphine 2 mg [morphine 2 mg/mL intravenous cartridge (1 mL)] Route: IVP; Site: jmb right antecubital; 21:09 Drug: Diatrizoate Meglumine & Sodium 10 ml [diatrizoate meglumine and diat.sodium 66 jmb %-10 % oral solution (10 mL)] Route: PO; 21:35 Follow up: Response: No Adverse Reaction michelleb 22:39 Drug: cefTRIAXone 1 grams [ceftriaxone 1 gram solution for injection] Route: IVPB; jmb Infused Over: 30 mins; Site: right antecubital; Order Results: Lab Order: CBC with Diff; SPEC'M 01/20/17 19:35 Test: WHITE BLOOD COUNT; Value: 22.6; Range: 4.0-10.0; Abnormal: Above high normal; Units: K/mm3; Status: F Test: RED BLOOD COUNT; Value: 3.99; Range: 4.00-5.40; Abnormal: Below low normal; Units: M/mm3; Status: F Test: HEMOGLOBIN; Value: 11.3; Range: 12.0-16.0; Abnormal: Below low normal; Units: g/dl; Status: F Test: HEMATOCRIT; Value: 36.5; Range: 36.0-47.0; Units: %; Status: F Test: MEAN CORPUSCULAR VOLUME; Value: 91.4; Range: 80.0-96.0; Units: fl; Status: F Test: MEAN CORPUSCULAR HEMOGLOBIN; Value: 28.4; Range: 27.0-33.0; Units: pg; Status: F Test: MEAN CORPUSCULAR HGB CONC; Value: 31.1; Range: 32.0-36.5; Abnormal: Below low normal; Units: g/dl; Status: F Test: RED CELL DISTRIBUTION WIDTH; Value: 15.1; Range: 11.5-14.5; Abnormal: Above high normal; Units: %; Status: F Test: PLATELET COUNT, AUTOMATED; Value: 192; Range: 150-450; Units: k/mm3; Status: F Test Note: ; A Pathologist review of this differential can help in the evaluation of a differential diagnosis. Please order a Pathologist Review (PATHREVCOMP) if deemed necessary. Results are subject to change if a Pathologist Review is performed. Test: NEUTROPHILS; Value: 15; Range: 35-75; Abnormal: Below low normal; Units: %; Status: F Test: LYMPHOCYTES; Value: 52; Range: 16-52; Units: %; Status: F Test: MONOCYTES; Value: 2; Range: 0-8; Units: %; Status: F Test: BLAST CELLS; Value: 3; Range: 0-0; Abnormal: Above high normal; Units: %; Status: F Test: ATYPICAL LYMPH; Value: 28; Range: 0-5; Abnormal: Above high normal; Units: %; Status: F Test: POIKILOCYTOSIS; Value: 1+; Status: F Test: SCHISTOCYTES; Value: 1+; Status: F Test: TEAR DROP CELLS; Value: 1+; Status: F Test: SMUDGE CELLS; Value: 2+; Status: F Lab Order: MED Profile; SPEC'M 01/20/17 19:35 Test: GLUCOSE, FASTING; Value: 104; Range: 83-110; Units: MG/DL; Status: F Test: BLOOD UREA NITROGEN; Value: 13; Range: 7-18; Units: MG/DL; Status: F Test: CREATININE FOR GFR; Value: 1.19; Range: 0.55-1.02; Abnormal: Above high normal; Units: MG/DL; Status: F Test: GLOMERULAR FILTRATION RATE; Value: 46.5; Range: >32; Status: F Test: SODIUM LEVEL; Value: 137; Range: 136-145; Units: MEQ/L; Status: F Test: POTASSIUM SERUM; Value: 4.4; Range: 3.5-5.1; Units: MEQ/L; Status: F Test: CHLORIDE LEVEL; Value: 100; Range: 98-107; Units: MEQ/L; Status: F Test: CARBON DIOXIDE LEVEL; Value: 26; Range: 21-32; Units: MEQ/L; Status: F Test: ANION GAP; Value: 11; Range: 8-16; Units: MEQ/L; Status: F Test: CALCIUM LEVEL; Value: 8.6; Range: 8.8-10.2; Abnormal: Below low normal; Units: MG/DL; Status: F Test Note: ; Units are mL/min/1.73 m2 Chronic Kidney Disease Staging per NKF: Stage I & II GFR >=60 Normal to Mildly Decreased Stage III GFR 30-59 Moderately Decreased Stage IV GFR 15-29 Severely Decreased Stage V GFR <15 Very Little GFR Left ESRD GFR <15 on SENIOR ACCOUNTS PAYABLE SPECIALIST Lab Order: Liver Profile; [facility] 01/20/17 19:35 Test: AST/SGOT; Value: 19; Range: 15-37; Units: U/L; Status: F Test: ALT/SGPT; Value: 26; Range: 12-78; Units: U/L; Status: F Test: ALKALINE PHOSPHATASE; Value: 110; Range: 45-117; Units: U/L; Status: F Test: BILIRUBIN,TOTAL; Value: 0.5; Range: 0.2-1.0; Units: MG/DL; Status: F Test: BILIRUBIN,DIRECT; Value: 0.2; Range: 0.0-0.2; Units: MG/DL; Status: F Test: TOTAL PROTEIN; Value: 6.5; Range: 6.4-8.2; Units: GM/DL; Status: F Test: ALBUMIN; Value: 3.6; Range: 3.2-5.2; Units: GM/DL; Status: F Test: ALBUMIN/GLOBULIN RATIO; Value: 1.24; Range: 1.00-1.93; Status: F Lab Order: Amylase; [facility] 01/20/17 19:35 Test: AMYLASE; Value: 41; Range: 25-115; Units: U/L; Status: F Lab Order: Lipase; [facility] 01/20/17 19:35 Test: LIPASE; Value: 211; Range: 73-393; Units: U/L; Status: F Lab Order: Urinalysis; [facility] 01/20/17 21:40 Test: APPEARANCE, URINE; Value: CLOUDY; Range: CLEAR; Abnormal: Above high normal; Status: F Test: COLOR, URINE; Value: YELLOW; Range: YELLOW; Status: F Test: PH,URINE; Value: 7.0; Range: 5.0-9.0; Units: UNITS; Status: F Test: SPECIFIC GRAVITY URINE AUTO; Value: 1.005; Range: 1.002-1.035; Status: F Test: PROTEIN, URINE AUTO; Value: 1+; Range: NEGATIVE; Abnormal: Above high normal; Units: mg/dL; Status: F Test: GLUCOSE, URINE (UA) AUTO; Value: NEGATIVE; Range: NEGATIVE; Units: mg/dL; Status: F Test: KETONE, URINE AUTO; Value: NEGATIVE; Range: NEGATIVE; Units: mg/dL; Status: F Test: UROBILINOGEN, URINE AUTO; Value: 0.2; Range: 0.0-2.0; Units: mg/dL; Status: F Test: BILIRUBIN, URINE AUTO; Value: NEGATIVE; Range: NEGATIVE; Status: F Test: NITRITE, URINE AUTO; Value: POSITIVE; Range: NEGATIVE; Status: F Test: LEUKOCYTE ESTERASE, URINE AUTO; Value: 3+; Range: NEGATIVE; Abnormal: Above high normal; Status: F Test: BLOOD, URINE BLOOD; Value: 1+; Range: NEGATIVE; Abnormal: Above high normal; Status: F Test: WBC, URINE AUTO; Value: TNTC; Range: 0-3; Abnormal: Above high normal; Units: /HPF; Status: F Test: RBC, URINE AUTO; Value: 34; Range: 0-3; Abnormal: Above high normal; Units: /HPF; Status: F Test: BACTERIA, URINE AUTO; Value: 2+; Range: NEGATIVE; Abnormal: Above high normal; Status: F Test: SQUAMOUS EPITHELIAL CELL UR AU; Value: 0; Range: 0-6; Units: /HPF; Status: F Test: HYALINE CAST, URINE AUTO; Value: 0; Range: 0-1; Units: /LPF; Status: F Lab Order: Pt & Aptt; SPEC'M 01/20/17 19:35 Test: PROTHROMBIN TIME; Value: 22.5; Range: 12.3-14.5; Abnormal: Above high normal; Units: SECONDS; Status: F Test: INR; Value: 1.97; Status: F Test: PARTIAL THROMBOPLASTIN TIME; Value: 31.2; Range: 26.6-37.1; Units: SECONDS; Status: F Test Note: ; THERAPUTIC HUMAN INR VALUES INDICATIONS NORMAL RANGES PROPHYLAXIS/TREATMENT OF: VENOUS THROMBOSIS 2.0-3.0 PULMONARY EMBOLISM 2.0-3.0 PREVENTION OF SYSTEMIC EMBOLISM FROM: TISSUE HEART VALVES 2.0-3.0 ACUTE MYOCARDIAL INFARCTION 2.0-3.0 VALVULAR HEART DISEASE 2.0-3.0 ATRIAL FIBRILLATION 2.0-3.0 MECHANICAL VALVES(HIGH RISK) 2.5-3.5 RECURRENT MYOCARDIAL INFARCTION 2.5-3.5 Lab Order: Thyroid Profile; SPEC'M 01/20/17 19:35 Test: T UPTAKE; Value: 31; Range: 30-39; Units: %; Status: F Test: THYROXINE (T4); Value: 14.8; Range: 4.5-12.0; Abnormal: Above high normal; Units: UG/DL; Status: F Test: FREE THYROXINE INDEX; Value: 4.6; Range: 1.3-4.8; Units: %; Status: F Test: THYROID STIMULATING HORMONE; Value: 10.300; Range: 0.358-3.740; Abnormal: Above high normal; Units: uIU/ML; Status: F Lab Order: Lactic Acid (Marquez tube on ice); [facility] 01/20/17 19:35 Test: LACTIC ACID SEPSIS PROTOCOL; Value: 1.4; Range: 0.4-2.0; Units: MMOL/L; Status: F Lab Order: PLATELET ESTIMATE; [facility] 01/20/17 19:35 Test: PLATELET ESTIMATE; Value: NORMAL; Range: NORMAL; Status: F Radiology Order: CT ABD & PELVIS: IV and Oral Contrast Test: CT ABD & PELVIS: IV and Oral Contrast REASON FOR EXAMINATION: Abdomen Pain; ; CT of the abdomen and pelvis with contrast; Clinical statement: Pain.; Technique: Multiple axial CT images were obtained from the base of the lungs through the floor of the; pelvis utilizing 5 mm axial slices after administration of nonionic intravenous contrast. Coronal an; d sagittal reconstructions were also obtained.; No comparison is available.; Findings:; Chest: There are bilateral linear lower lobe infiltrates. Extensive right axillary lymphadenopathy is; noted with a dominant lymph node measuring 3.4 x 3.4 cm. A precarinal lymph node measures 2.4 x 1.5; cm.; Abdomen: The liver, spleen, pancreas, kidneys, gallbladder, and adrenal glands are unremarkable. The; aorta is within normal limits. There is severe extensive retroperitoneal and abdominal lymphadenopath; y, with masslike structures throughout the mesentery. For example, a large central abdominal mass herlinda; sures 10.0 x 5.1 cm. At the gastroesophageal junction, there is an irregular mass extending into the; gastric lumen, measuring approximately 6.4 x 4.6 cm.; Pelvis: The bowel is unremarkable, with no obstructive or inflammatory changes. The urinary bladder i; s within normal limits. The other pelvic structures appear grossly intact. There is no evidence of pe; lvic ascites. Extensive bilateral pelvic lymphadenopathy is noted.; Bones: There are no suspicious osseous abnormalities seen. Severe multilevel degenerative disc diseas; e with mild dextroscoliosis is appreciated. Osteoarthritic changes of the hip joints is seen bilatera; lly.; Impression:; 1. Extensive adenopathy within the abdomen and pelvis, as well as within the visualized portions of t; he chest. Neoplasm must be considered. Lymphoma cannot be excluded.; 2. Large irregular soft tissue mass at the gastroesophageal junction. Neoplasm must be considered. En; doscopy is recommended.; 3. Linear infiltrate/atelectasis in the lower lungs bilaterally.; 4. No evidence of hydronephrosis or nephrolithiasis.; 5. No obstructive or inflammatory bowel changes.; 6. Moderate spondylosis of the lumbar spine.; ; Outcome: 23:31 Decision to Hospitalize by Provider. cs11 01/21 00:57 Discharge Assessment: Patient awake, alert and oriented x 3. No cognitive and/or jmb functional deficits noted. Patient verbalized understanding of disposition instructions. Patient awake and alert. obeys commands, Oriented to person, place and time. Patient verbalized understanding of disposition instructions. Patient has no functional deficits. patient administered narcotics - yes. Patient was admitted to the hospital or transferred to another facility. The following High Risk Discharge criteria are identified: None. Condition: stable Condition: improved. CT Study completed. Property :Personal belongings accompany Pt. 01:11 Patient left the ED. rodolfo Signatures: Dispatcher [employer] EDMS Mary Lou Rowe, Reg Reg gb Suki, Kayla, PHARMACY INFORMATICS SPECIALIST PHARMACY INFORMATICS SPECIALIST mallory Jace Tanner, DO cs11 Carmen Templeton, RN RN Joon Capone RN RN Lexus Romero, Reg Reg hs2 Farrell, Crystal, PHARMACY INFORMATICS SPECIALIST PHARMACY INFORMATICS SPECIALIST cln Kayla Gil lr2 Chart Complete MTDD
--- NOTE | 2017-01-23 02:13 | EDDOCDS ---
Physician Documentation [facility] Name: Lizzy Bray Age: 81 yrs Sex: Female : 1935 Arrival Date: 01/20/2017 Time: 19:10 Bed 13 Private MD: Tiffany Muñiz ANP Disposition: 01/20/17 23:31 Hospitalization ordered by Nora Combs for Inpatient Admission. Preliminary diagnosis are Abdominal and pelvic pain, Leukemia, unspecified, Urinary tract infection, site not specified, Other types of follicular lymphoma, intra-abdominal lymph nodes. - Bed requested for PCU. - Status is Inpatient Admission. jmb - Condition is Stable. - Problem is an ongoing problem. - Symptoms are unchanged. Historical: - Allergies: rotuxin; PENICILLINS; ofatumumab; Doxycycline; chemo drugs; Avelox; - Home Meds: 1. Magnesium Oxide Oral 400 mg daily (Last dose: 01/20/2017 08:00) 2. Klor-Con M20 20 mEq Oral TbTQ 1 tab once daily 3. levothyroxine 100 mcg Oral cap once daily (Last dose: 01/20/2017 07:00) 4. Vitamin C Oral daily (Last dose: 01/20/2017 07:00) 5. Vitamin D Oral 2000 unit daily (Last dose: 01/20/2017 08:00) 6. Imbruvica 140 mg oral cap once daily Not taking at this time off since Nov 25 7. Coumadin 2.5 mg Oral tab 1 tab once daily 5mg tomorrow (Last dose: 01/20/2017 08:00) 8. Sertraline 25 mg daily (Last dose: 01/20/2017 08:00) - PMHx: Hypothyroidism; Leukemia; PE; CLL; - PSHx: right knee arthroplasty; Cataract Surgery- Bilateral; Appendectomy; Hysterectomy; - Social history: Smoking status: Patient states was never smoker of tobacco. Patient/guardian denies using alcohol, street drugs, No barriers to communication noted, The patient speaks fluent Macedonian, Speaks appropriately for age. - Family history: Not pertinent. - : The pt / caregiver states he / she is on anticoagulants: coumadin. Home medication list is obtained from the patient. - Exposure Risk Screening:: None identified. - History obtained from: . Vital Signs: 02/26 19:12 BP 138 / 73; Pulse 103; Resp 18; Temp 99.4(O); Pulse Ox 95% on R/A; Weight 78.02 kg / lr2 172 lbs (R); Height 5 ft. 2 in. (157.48 cm) (R); Pain 8/10; 20:12 BP 141 / 70 (auto/); jmb 20:12 Pulse 88 MON; Pulse Ox 93% ; jmb 20:27 BP 135 / 74 (auto/); jmb 20:27 Pulse 86 MON; Pulse Ox 93% ; jmb 20:42 BP 140 / 80 (auto/); jmb 20:42 Pulse 88 MON; Pulse Ox 93% ; jmb 20:57 BP 146 / 67 (auto/); jmb 20:57 Pulse 86 MON; Pulse Ox 94% ; jmb 21:12 BP 140 / 69 (auto/); jmb 21:12 Pulse 90 MON; Pulse Ox 94% ; jmb 21:27 BP 148 / 76 (auto/); jmb 21:27 Pulse 92 MON; Pulse Ox 96% ; jmb 21:42 BP 141 / 69 (auto/); jmb 21:42 Pulse 98 MON; Pulse Ox 95% ; jmb 21:57 BP 137 / 74 (auto/); jmb 21:57 Pulse 100 MON; Pulse Ox 92% ; jmb 22:12 BP 135 / 74 (auto/); jmb 22:12 Pulse 100 MON; Pulse Ox 92% ; jmb 22:42 BP 134 / 65 (auto/); jmb 22:42 Pulse 94 MON; Pulse Ox 91% ; jmb 22:57 BP 132 / 67 (auto/); jmb 22:57 Pulse 94 MON; Pulse Ox 91% ; jmb 23:12 BP 131 / 70 (auto/); jmb 23:12 Pulse 92 MON; Pulse Ox 90% ; jmb 23:27 BP 121 / 65 (auto/); jmb 23:27 Pulse 92 MON; Pulse Ox 92% ; jmb 23:42 BP 135 / 70 (auto/); jmb 23:42 Pulse 90 MON; Pulse Ox 92% ; jmb 23:57 BP 123 / 67 (auto/); jmb 23:57 Pulse 92 MON; Pulse Ox 93% ; jmb 01/21 00:12 BP 129 / 70 (auto/); jmb 00:12 Pulse 90 MON; Pulse Ox 93% ; jmb 00:27 BP 118 / 59 (auto/); jmb 00:27 Pulse 88 MON; Pulse Ox 93% ; jmb 00:42 BP 119 / 63 (auto/); jmb 00:42 Pulse 88 MON; Pulse Ox 92% ; jmb 00:57 BP 118 / 63 (auto/); jmb 00:57 Pulse 90 MON; Resp 20; Temp 99.0(O); Pulse Ox 92% ; Pain 0/10; b 01/20 19:12 Body Mass Index 31.46 (78.02 kg, 157.48 cm) lr2 MDM: 01/20 19:28 IV Saline Lock ordered. cs11 19:29 -Blood Culture Ordered. EDMS 19:29 CBC with Diff Ordered. EDMS 19:29 MED Profile Ordered. EDMS 19:29 Liver Profile Ordered. EDMS 19:29 Amylase Ordered. EDMS 19:29 Lipase Ordered. EDMS 19:29 Urinalysis Ordered. EDMS 19:29 Urine Culture Ordered. EDMS 19:30 NS 0.9% 500 ml IV at bolus once ordered. cs11 19:30 Pt & Aptt Ordered. EDMS 19:30 Thyroid Profile Ordered. EDMS 19:32 Lactic Acid (Marquez tube on ice) Ordered. EDMS 20:12 DIFFERENTIAL NO CHARGE Ordered. EDMS 20:17 MED Profile Reviewed. cs11 20:17 Pt & Aptt Reviewed. cs11 20:17 Liver Profile Reviewed. cs11 20:17 Amylase Reviewed. cs11 20:17 Lipase Reviewed. cs11 20:17 NS 0.9% 500 ml IV at bolus once ordered. cs11 20:20 CT ABD & PELVIS: IV and Oral Contrast Ordered. EDMS 20:45 Metoclopramide 10 mg IV at 40 mg/hr once over 15 mins ordered. cs11 20:45 morphine 2 mg IVP once ordered. cs11 20:45 Thyroid Profile Reviewed. cs11 20:45 Lactic Acid (Marquez tube on ice) Reviewed. cs11 21:01 Diatrizoate Meglumine & Sodium Liquid 10 ml PO once; mix in 290cc of water ordered. jmb 21:01 Diatrizoate Meglumine & Sodium Liquid 10 ml PO once; mix in 290cc of water ordered. jmb 22:29 CBC with Diff Reviewed. cs11 22:29 Urinalysis Reviewed. cs11 22:29 PLATELET ESTIMATE Reviewed. cs11 22:31 cefTRIAXone 1 grams IVPB once over 30 mins; dilute in 50mL of NS or D5W ordered. cs11 23:24 CT ABD & PELVIS: IV and Oral Contrast Reviewed. cs11 23:31 PHYSICAL THERAPY EVAL & TREAT ordered. EDMS 23:31 Admission / Observation Status ordered. EDMS 23:31 NPO DIET ordered. EDMS 23:32 COMPLETE COMPHRENSIVE METABOLI Ordered. EDMS 23:32 CBC WITH DIFFERENTIAL Ordered. EDMS 01/21 00:26 Financial registration complete. hs2 00:52 [facility] [place] was scanned into [employer] and attached to record. hs2 10:29 T-Sheet-- Draft Copy was scanned into [employer] and attached to record. gb Administered Medications: 01/20 19:54 Drug: NS 0.9% 500 ml [sodium chloride 0.9 % intravenous solution] Route: IV; Rate: jmb bolus; Site: right antecubital; 21:35 Follow up: IV Status: Completed infusion b 20:40 Drug: Diatrizoate Meglumine & Sodium 10 ml [diatrizoate meglumine and diat.sodium 66 jmb %-10 % oral solution (10 mL)] Route: PO; 21:34 Follow up: Response: No Adverse Reaction b 20:43 Drug: NS 0.9% 500 ml [sodium chloride 0.9 % intravenous solution] Route: IV; Rate: jmb bolus; Site: right antecubital; 21:00 Drug: Metoclopramide 10 mg [metoclopramide 5 mg/mL injection solution] Route: IV; Rate: jmb 40 mg/hr; Infused Over: 15 mins; Site: right antecubital; 21:00 Drug: morphine 2 mg [morphine 2 mg/mL intravenous cartridge (1 mL)] Route: IVP; Site: jmb right antecubital; 21:09 Drug: Diatrizoate Meglumine & Sodium 10 ml [diatrizoate meglumine and diat.sodium 66 jmb %-10 % oral solution (10 mL)] Route: PO; 21:35 Follow up: Response: No Adverse Reaction b 22:39 Drug: cefTRIAXone 1 grams [ceftriaxone 1 gram solution for injection] Route: IVPB; jmb Infused Over: 30 mins; Site: right antecubital; Signatures: Dispatcher [employer] EDMS Mary Lou Rowe, Reg Reg gb Jace Tanner, DO cs11 Carmen Templeton, RN RN ttb Tisha Moss, HEARING AID REPAIRER HEARING AID REPAIRER [email or web address] Joon Britton,MAGGIE RN jmb Lexus Christianson, Reg Reg hs2 The chart was reviewed and I authenticate all verbal orders and agree with the evaluation and treatment provided.Attachments: 01/21 00:52 [facility] [place] Agreement hs2 10:29 T-Sheet-- Draft Copy gb Chart Complete MTDD
--- NOTE | 2017-01-23 02:13 | EDDOCDS ---
Physician Documentation [facility] Name: Lizzy Bray Age: 81 yrs Sex: Female : 1935 Arrival Date: 01/20/2017 Time: 19:10 Bed 13 Private MD: Tiffany Muñiz ANP Disposition: 01/20/17 23:31 Hospitalization ordered by Nora Combs for Inpatient Admission. Preliminary diagnosis are Abdominal and pelvic pain, Leukemia, unspecified, Urinary tract infection, site not specified, Other types of follicular lymphoma, intra-abdominal lymph nodes. - Bed requested for PCU. - Status is Inpatient Admission. jmb - Condition is Stable. - Problem is an ongoing problem. - Symptoms are unchanged. Historical: - Allergies: rotuxin; PENICILLINS; ofatumumab; Doxycycline; chemo drugs; Avelox; - Home Meds: 1. Magnesium Oxide Oral 400 mg daily (Last dose: 01/20/2017 08:00) 2. Klor-Con M20 20 mEq Oral TbTQ 1 tab once daily 3. levothyroxine 100 mcg Oral cap once daily (Last dose: 01/20/2017 07:00) 4. Vitamin C Oral daily (Last dose: 01/20/2017 07:00) 5. Vitamin D Oral 2000 unit daily (Last dose: 01/20/2017 08:00) 6. Imbruvica 140 mg oral cap once daily Not taking at this time off since Nov 25 7. Coumadin 2.5 mg Oral tab 1 tab once daily 5mg tomorrow (Last dose: 01/20/2017 08:00) 8. Sertraline 25 mg daily (Last dose: 01/20/2017 08:00) - PMHx: Hypothyroidism; Leukemia; PE; CLL; - PSHx: right knee arthroplasty; Cataract Surgery- Bilateral; Appendectomy; Hysterectomy; - Social history: Smoking status: Patient states was never smoker of tobacco. Patient/guardian denies using alcohol, street drugs, No barriers to communication noted, The patient speaks fluent [place], Speaks appropriately for age. - Family history: Not pertinent. - : The pt / caregiver states he / she is on anticoagulants: coumadin. Home medication list is obtained from the patient. - Exposure Risk Screening:: None identified. - History obtained from: . Vital Signs: 02/26 19:12 BP 138 / 73; Pulse 103; Resp 18; Temp 99.4(O); Pulse Ox 95% on R/A; Weight 78.02 kg / lr2 172 lbs (R); Height 5 ft. 2 in. (157.48 cm) (R); Pain 8/10; 20:12 BP 141 / 70 (auto/); jmb 20:12 Pulse 88 MON; Pulse Ox 93% ; jmb 20:27 BP 135 / 74 (auto/); jmb 20:27 Pulse 86 MON; Pulse Ox 93% ; jmb 20:42 BP 140 / 80 (auto/); jmb 20:42 Pulse 88 MON; Pulse Ox 93% ; jmb 20:57 BP 146 / 67 (auto/); jmb 20:57 Pulse 86 MON; Pulse Ox 94% ; jmb 21:12 BP 140 / 69 (auto/); jmb 21:12 Pulse 90 MON; Pulse Ox 94% ; jmb 21:27 BP 148 / 76 (auto/); jmb 21:27 Pulse 92 MON; Pulse Ox 96% ; jmb 21:42 BP 141 / 69 (auto/); jmb 21:42 Pulse 98 MON; Pulse Ox 95% ; jmb 21:57 BP 137 / 74 (auto/); jmb 21:57 Pulse 100 MON; Pulse Ox 92% ; jmb 22:12 BP 135 / 74 (auto/); jmb 22:12 Pulse 100 MON; Pulse Ox 92% ; jmb 22:42 BP 134 / 65 (auto/); jmb 22:42 Pulse 94 MON; Pulse Ox 91% ; jmb 22:57 BP 132 / 67 (auto/); jmb 22:57 Pulse 94 MON; Pulse Ox 91% ; jmb 23:12 BP 131 / 70 (auto/); jmb 23:12 Pulse 92 MON; Pulse Ox 90% ; jmb 23:27 BP 121 / 65 (auto/); jmb 23:27 Pulse 92 MON; Pulse Ox 92% ; jmb 23:42 BP 135 / 70 (auto/); jmb 23:42 Pulse 90 MON; Pulse Ox 92% ; jmb 23:57 BP 123 / 67 (auto/); jmb 23:57 Pulse 92 MON; Pulse Ox 93% ; jmb 01/21 00:12 BP 129 / 70 (auto/); jmb 00:12 Pulse 90 MON; Pulse Ox 93% ; jmb 00:27 BP 118 / 59 (auto/); jmb 00:27 Pulse 88 MON; Pulse Ox 93% ; jmb 00:42 BP 119 / 63 (auto/); jmb 00:42 Pulse 88 MON; Pulse Ox 92% ; jmb 00:57 BP 118 / 63 (auto/); jmb 00:57 Pulse 90 MON; Resp 20; Temp 99.0(O); Pulse Ox 92% ; Pain 0/10; b 01/20 19:12 Body Mass Index 31.46 (78.02 kg, 157.48 cm) lr2 MDM: 01/20 19:28 IV Saline Lock ordered. cs11 19:29 -Blood Culture Ordered. EDMS 19:29 CBC with Diff Ordered. EDMS 19:29 MED Profile Ordered. EDMS 19:29 Liver Profile Ordered. EDMS 19:29 Amylase Ordered. EDMS 19:29 Lipase Ordered. EDMS 19:29 Urinalysis Ordered. EDMS 19:29 Urine Culture Ordered. EDMS 19:30 NS 0.9% 500 ml IV at bolus once ordered. cs11 19:30 Pt & Aptt Ordered. EDMS 19:30 Thyroid Profile Ordered. EDMS 19:32 Lactic Acid (Marquez tube on ice) Ordered. EDMS 20:12 DIFFERENTIAL NO CHARGE Ordered. EDMS 20:17 MED Profile Reviewed. cs11 20:17 Pt & Aptt Reviewed. cs11 20:17 Liver Profile Reviewed. cs11 20:17 Amylase Reviewed. cs11 20:17 Lipase Reviewed. cs11 20:17 NS 0.9% 500 ml IV at bolus once ordered. cs11 20:20 CT ABD & PELVIS: IV and Oral Contrast Ordered. EDMS 20:45 Metoclopramide 10 mg IV at 40 mg/hr once over 15 mins ordered. cs11 20:45 morphine 2 mg IVP once ordered. cs11 20:45 Thyroid Profile Reviewed. cs11 20:45 Lactic Acid (Marquez tube on ice) Reviewed. cs11 21:01 Diatrizoate Meglumine & Sodium Liquid 10 ml PO once; mix in 290cc of water ordered. jmb 21:01 Diatrizoate Meglumine & Sodium Liquid 10 ml PO once; mix in 290cc of water ordered. jmb 22:29 CBC with Diff Reviewed. cs11 22:29 Urinalysis Reviewed. cs11 22:29 PLATELET ESTIMATE Reviewed. cs11 22:31 cefTRIAXone 1 grams IVPB once over 30 mins; dilute in 50mL of NS or D5W ordered. cs11 23:24 CT ABD & PELVIS: IV and Oral Contrast Reviewed. cs11 23:31 PHYSICAL THERAPY EVAL & TREAT ordered. EDMS 23:31 Admission / Observation Status ordered. EDMS 23:31 NPO DIET ordered. EDMS 23:32 COMPLETE COMPHRENSIVE METABOLI Ordered. EDMS 23:32 CBC WITH DIFFERENTIAL Ordered. EDMS 01/21 00:26 Financial registration complete. hs2 00:52 [facility] [place] was scanned into [employer] and attached to record. hs2 10:29 T-Sheet-- Draft Copy was scanned into [employer] and attached to record. gb Administered Medications: 01/20 19:54 Drug: NS 0.9% 500 ml [sodium chloride 0.9 % intravenous solution] Route: IV; Rate: jmb bolus; Site: right antecubital; 21:35 Follow up: IV Status: Completed infusion b 20:40 Drug: Diatrizoate Meglumine & Sodium 10 ml [diatrizoate meglumine and diat.sodium 66 jmb %-10 % oral solution (10 mL)] Route: PO; 21:34 Follow up: Response: No Adverse Reaction b 20:43 Drug: NS 0.9% 500 ml [sodium chloride 0.9 % intravenous solution] Route: IV; Rate: jmb bolus; Site: right antecubital; 21:00 Drug: Metoclopramide 10 mg [metoclopramide 5 mg/mL injection solution] Route: IV; Rate: jmb 40 mg/hr; Infused Over: 15 mins; Site: right antecubital; 21:00 Drug: morphine 2 mg [morphine 2 mg/mL intravenous cartridge (1 mL)] Route: IVP; Site: jmb right antecubital; 21:09 Drug: Diatrizoate Meglumine & Sodium 10 ml [diatrizoate meglumine and diat.sodium 66 jmb %-10 % oral solution (10 mL)] Route: PO; 21:35 Follow up: Response: No Adverse Reaction b 22:39 Drug: cefTRIAXone 1 grams [ceftriaxone 1 gram solution for injection] Route: IVPB; jmb Infused Over: 30 mins; Site: right antecubital; Signatures: Dispatcher [employer] EDMS Mary Lou Rowe, Reg Reg gb Jace Tanner, DO cs11 Carmen Templeton, RN RN ttb Tisha Moss, FRANCHISE CONSULTANT FRANCHISE CONSULTANT [email or web address] Joon Britton,MAGGIE RN jmb Lexus Christianson, Reg Reg hs2 The chart was reviewed and I authenticate all verbal orders and agree with the evaluation and treatment provided.Attachments: 01/21 00:52 [facility] [place] hs2 10:29 T-Sheet-- Draft Copy gb Chart Complete MTDD
[2017-01-23] MEDS: MEROPENEM INJ 1 GM in D5W MINI-BAG PLUS 100 ML IV SCH ×2 (04:51→15:45)
[2017-01-23] MEDS: LEVOTHYROXINE 0.1 MG TAB (100 MCG) PO SCH (05:41)
[2017-01-23 06:00] VITALS: BP 115/64
[2017-01-23 06:15] LABS: DIFF SLIDE NUMBER 33; MEAN CORPUSCULAR HEMOGLOBIN 28.1 pg (27.0-33.0); MEAN CORPUSCULAR HGB CONC 31.1 g/dl (32.0-36.5); MEAN CORPUSCULAR VOLUME 90.4 fl (80.0-96.0); PLATELET COUNT, AUTOMATED 163 k/mm3 (150-450); RED CELL DISTRIBUTION WIDTH 15.2 % (11.5-14.5)
[2017-01-23 06:16] LABS: WHITE BLOOD COUNT 19.6 K/mm3 (4.0-10.0)
[2017-01-23 06:20] LABS: INR 1.38
[2017-01-23 06:29] LABS: ALBUMIN 2.8 GM/DL (3.2-5.2); ALKALINE PHOSPHATASE 78 U/L (45-117); ALT/SGPT 17 U/L (12-78); ANION GAP 9 MEQ/L (8-16); AST/SGOT 16 U/L (15-37); BILIRUBIN,TOTAL 0.4 MG/DL (0.2-1.0); BLOOD UREA NITROGEN 11 MG/DL (7-18); CALCIUM LEVEL 8.5 MG/DL (8.8-10.2); CARBON DIOXIDE LEVEL 25 MEQ/L (21-32); CHLORIDE LEVEL 106 MEQ/L (98-107); CREATININE FOR GFR 0.93 MG/DL (0.55-1.02); GLOMERULAR FILTRATION RATE > 60.0 (>32); GLUCOSE, FASTING 106 MG/DL (83-110); POTASSIUM SERUM 3.5 MEQ/L (3.5-5.1); SODIUM LEVEL 140 MEQ/L (136-145); TOTAL PROTEIN 5.6 GM/DL (6.4-8.2)
[2017-01-23 07:24] LABS: EOSINOPHILS 1 % (0-5)
[2017-01-23 07:26] LABS: ANISOCYTOSIS 1+; HYPOCHROMASIA 1+; SMUDGE CELLS 2+
[2017-01-23] MEDS ORDERED: POTASSIUM CHLORIDE 10 MEQ SR TABLET PO ONE (09:00)
[2017-01-23] MEDS: PANTOPRAZOLE 40MG TAB (PROTONIX) PO SCH (09:11)
[2017-01-23] MEDS: SENOKOT S TAB PO SCH (09:12)
[2017-01-23] MEDS: MIRALAX *UNIT DOSE* 17GM PACKET PO SCH (09:12)
[2017-01-23] MEDS: ENOXAPARIN 80 MG/0.8 ML SYRINGE (J1650) SC SCH ×2 (09:13→20:10)
[2017-01-23] MEDS: TUSSICAPS ER 10/8MG CAPSULE PO SCH ×2 (11:21→20:10)
[2017-01-23 14:00] VITALS: BP 127/62
--- NOTE | 2017-01-23 18:06 | IPNPDOC ---
Subjective Date Seen The patient was seen on 01/23/17. Subjective Chief Complaint/HPI The patient is a 81-year-old female admitted with a reason for visit of Lymphadenopathy Abdominal. Events since last encounter no acute events, abd pain improved, tolerate oral. denied cp/n/v/sob General: Reports: Fatigue, Denies: Chills Constitutional: Reports: Weakness, Denies: Chills, Fever, Night Sweats Eyes: Denies: Pain, Vision change ENT: Denies: Ear Pain, Head Aches Skin: Denies: Lesions, Rash Pulmonary: Reports: Cough, Denies: Dyspnea Cardiovascular: Denies: Chest Pain, Palpitations Gastrointestinal: Reports: Abdominal Pain, Denies: Nausea, Vomiting Genitourinary: Denies: Dysuria Musculoskeletal: Denies: Back Pain, Neck Pain Objective Physical Examination General Exam: Positive: Alert, Cooperative, No Acute Distress Eye Exam: Positive: EOMI, PERRLA ENT Exam: Positive: Atraumatic, Mucous membr. moist/pink Neck Exam: Positive: Supple Chest Exam: Positive: Clear to auscultation, Normal air movement Heart Exam: Positive: Normal S1, Normal S2, Rate Normal, Regular Rhythm Abdomen Exam: Positive: Normal bowel sounds, Soft, Negative: Tenderness Extremity Exam: Negative: Clubbing, Edema Assessment /Plan Problems (1) Abdominal pain Status: Acute Problem Text: improved ct showed abd lymphadenopathy, see bellow diet advance, pain med surgery Dr Conn consulted (2) Lymphadenopathy Status: Acute Problem Text: DDX worsening CLL vs possible advance to difuse b cell lymphoma Esophageal mass evaluaed upper GI series neg, likely lymphadenopathy Surgery Dr Conn consulted, for lymphnode biopsy case discussed with Dr Karimi pt's oncology, image study sent to her office Dr Aden consulted patient refused transfer to [facility], aware receiving sub-optimal care given inpatient chemo not available at [facility] peripheral smear appreciated, flow cytometry (3) Generalized weakness Status: Acute Problem Text: likely secondary to underlying malignancy, PT, see above (4) PE (pulmonary embolism) Status: Chronic Problem Text: coumadin on hold, for possible procedures f/u INR restart coumadin when possible lovenox SQ BID (5) HTN (hypertension) Status: Chronic Problem Text: c/w med (6) Hypothyroid Status: Chronic Problem Text: c/w med (7) GERD (gastroesophageal reflux disease) Status: Chronic Problem Text: ppi (8) Constipation Status: Chronic Problem Text: bowel reg (9) Leukocytosis Status: Acute Problem Text: possible 2/2 worsening CLL vs infection UTI f/u culture alan peripheral smear apreciated see above Plan/VTE VTE Prophylaxis Ordered?: Yes (Lovenox SQ for PE treatement) Disposition lovenox hold am dose of biopsy lymph node, PT, clinical improvement VS, I&O, 24H, Fishbone Vital Signs/I&O Vital Signs Date Time Temp Pulse Resp B/P Pulse Ox O2 Delivery O2 Flow Rate FiO2 01/23/17 14:00 96.8 92 16 127/62 91 Room Air I&O- Last 24 Hours up to 6 AM 01/23/17 05:59 Intake Total 800 ml Output Total 150 ml Balance 650 ml Laboratory Data 24H LABS Laboratory Tests 2 01/23/17 05:11: Blood Urea Nitrogen 11, Creatinine 0.93, Sodium Level 140, Potassium Level 3.5, Chloride Level 106, Carbon Dioxide Level 25, Calcium Level 8.5L, Aspartate Amino Transf (AST/SGOT) 16, Alanine Aminotransferase (ALT/SGPT) 17, Alkaline Phosphatase 78, Total Bilirubin 0.4, Total Protein 5.6L, Albumin 2.8L, Albumin/ Globulin Ratio 1.00, Anion Gap 9, Anisocytosis 1+, Atypical Lymphocytes 12H, Eosinophils (Manual) 1, Glomerular Filtration Rate > 60.0, Hypochromasia 1+, Lymphocytes (Manual) 59H, Neutrophils 28L, Platelet Estimate NORMAL, Prothromb Time International Ratio 1.38, Prothrombin Time 17.1H, Smudge Cells 2+ CBC/BMP Laboratory Tests 01/23/17 05:11 Calcium Level 8.5 L, Aspartate Amino Transf (AST/SGOT) 16, Alanine Aminotransferase (ALT/SGPT) 17, Alkaline Phosphatase 78, Total Bilirubin 0.4, Total Protein 5.6 L, Albumin 2.8 L, Red Blood Count 3.41 L, Mean Corpuscular Volume 90.4, Mean Corpuscular Hemoglobin 28.1, Mean Corpuscular Hemoglobin Concent 31.1 L, Red Cell Distribution Width 15.2 H Microbiology Microbiology 01/20/17 Blood Culture - Preliminary, Resulted No Growth after 48 hours. All Specime... 01/23/17 Gastrointestinal Tract Panel (PCR) - Final, Complete 01/20/17 Urine Culture - Final, Complete Serratia Marcescens CIARAN JAMES MD Jan 23, 2017 18:06
--- NOTE | 2017-01-23 18:51 | CR ---
DATE: 01/23/2017 Lizzy Bray is an 81-year-old woman with a history of chronic lymphocytic leukemia hospitalized with abdominal pain, fever and found to have progressive adenopathy. and UTI. I was asked to provide medical oncology management recommendations by Dr. Janey Hoover. Lizzy is interviewed lying in bed awake and alert, accompanied by her . She is familiar to me from many years ago when she was first diagnosed in our practice. She has since continued care at [facility], currently under Carmen Karimi She originally presented with advanced CLL with extensive adenopathy and was treated with FCR, complicated by rituximab reactions. Subsequently followed and observed until 2 years ago when she started ibrutinib. Lizzy is a spotty historian, and I learned in discussion with Dr. Karimi she has been on and off ibrutinib for the last 6 months due to hospitalizations and various medical problems. For example, she had knee surgery in November and went off ibruitinib then and hasn't been back on it. Dr. Karimi said there were other hospitalizations and medical issues prior to that which means that over the last 2 years Lizzy has not had a steady state of treatment on ibrutinib. Lizzy denies sweats, fevers, or unintended weight loss. She says in the last week her abdomen began to protrude and she could not even bend over, it was causing discomfort. In the last month, her right underarm area of lymph nodes has enlarged. She also has neck and supraclavicular area nodes which are quickly visible on exam, she says these emerged over the last weeks or months. She is a little unclear on detail. CT abdomen and pelvis with contrast on this admission shows bilateral lower lobe infiltrates, extensive right axillary adenopathy, dominant node 3.4 x 3.4 cm, and a precarinal 2.4 cm node. Major abdominal organs are unremarkable. There is extensive retroperitoneal and abdominal adenopathy with mass-like structures throughout the mesentery, largest 10 cm, at the GE junction an irregular mass extends extending into the gastric lumen up to 6.[address] was done. She is being treated for a UTI. CURRENT MEDICATIONS: - potassium chloride 40 mEq as needed - Tussionex twice a day - lorazepam 0.5 mg as needed nightly - levothyroxine 100 mcg daily - enoxaparin 80 mg daily - meropenem every 12 hours - pantoprazole 40 mg - acetaminophen as needed - oxycodone every 4 hours as needed - morphine sulfate 2 mg every 6 hours as needed ALLERGIES: Are to: DOXYCYCLINE, MOUSE PROTEIN, MOXIFLOXACIN, OFATUMUMAB, PENICILLIN, RITUXIMAB. PAST MEDICAL HISTORY: CLL status post several lines of treatment, pulmonary embolism in the perioperative period November 2016, hypothyroidism. PAST SURGICAL HISTORY: Right knee arthroplasty November 2016, cataract surgery bilaterally, appendectomy, hysterectomy. SOCIAL HISTORY: Denies alcohol or tobacco. Retired company secretary. Lives with and healthcare proxy, Sachin Bray, phone number [phone]. FAMILY HISTORY: Noncontributory. LIMITED PHYSICAL EXAMINATION: VITAL SIGNS: Temperature 97.4, blood pressure 115/64, heart rate 86, oxygen saturation 16, pulse oximetry 90% room air. The patient is lying comfortably in bed reclining, makes good eye contact, awake and alert, interactive. HEENT: Pupils equal and reactive. No scleral icterus. Oropharynx is clear. There is obvious supraclavicular, right greater than left, adenopathy, palpable right axillary adenopathy, palpable abdominal adenopathy. LABORATORY DATA: WBC 19.6, hemoglobin 9.6, hematocrit 30, platelets 163, 12 atypical lymphocytes, no blasts. On today's CBC, 01/20/2017, notes blasts. Urine culture positive for Serratia marcescens, nitrofurantoin and cephazolin resistant, otherwise sensitive. Blood culture no growth. Stool PCR is negative. IMPRESSION: Lizzy Bray is an 81-year-old woman with CLL, now with symptomatic, bulky adenopathy involving abdomen, retroperitoneum, chest, axillae and supraclavicular areas. She was diagnosed with CLL in approximately 2005, initially treated with fludarabine, Cytoxan and rituximab, developed intolerance to rituximab, It's incompletely clear but her second line of treatment was ibrutinib begun 2 years ago, with partial adherence. According to Dr. Karimi, the patient has had bulky above- and below- the diaphragm adenopathy on CTs in the fall at [facility]. The current degree of progression is therefore uncertain; she awaits a CD of images to review. Lizzy's description of 1 week to 1 month interval symptomatic increase in nodes is concerning however for a Menard's transformation of CLL to diffuse large B-cell lymphoma (an uncommon but ominous evolution to aggressive lymphoma.) There are blasts on peripheral blood smear concerning either for a diffuse large B-cell lymphoma or evolution to acute phase chronic lymphocytic leukemia. PLAN/RECOMMENDATIONS: 1. Peripheral blood flow cytometry. 2. Recommend a biopsy the most accessible, recently emerged node. The more recent it emerged, the more likely to represent the most aggressive biology of this patient's disease. From interview with Lizzy that is either right axilla or abdominal/mesentery. An excisional node will enable differentiation of diffuse large B-cell versus or persistent small/chronic lymphocytic lymphoma. 3. I discussed the case with Dr. Karimi who agrees with the biopsy recommendation. 4. I spoke with Lizzy and her about whether she would like to be cared for locally or continue her care in [place]. She would like to think it over but softly expressed preference not to drive to [place]. Complicating her overall picture is the current UTI, her relative infirmity from recent knee surgery, pulmonary embolism. If this is diffuse large B-cell lymphoma, she should be treated typically with a CHOP or R-CHOP regimen. If this is acute phase CLL, she would also need chemotherapy. If this is progressive chronic lymphocytic lymphoma, then possibly other oral agents could be tried. I discussed all these things with Lizzy today at the bedside. Will await biopsy results. I will continue to follow while she is inpatient. MICHELLE
[2017-01-23 22:00] VITALS: BP 123/62
[2017-01-24] VITALS (8 sets, daily range): BP systolic 124–156; BP diastolic 60–76
[2017-01-24] MEDS: MEROPENEM INJ 1 GM in D5W MINI-BAG PLUS 100 ML IV SCH ×2 (04:48→17:16)
[2017-01-24] MEDS: LEVOTHYROXINE 0.1 MG TAB (100 MCG) PO SCH (05:42)
[2017-01-24 06:44] LABS: INR 1.23
[2017-01-24 06:46] LABS: DIFF SLIDE NUMBER 24; MEAN CORPUSCULAR HEMOGLOBIN 27.9 pg (27.0-33.0); MEAN CORPUSCULAR HGB CONC 30.9 g/dl (32.0-36.5); MEAN CORPUSCULAR VOLUME 90.2 fl (80.0-96.0); PLATELET COUNT, AUTOMATED 172 k/mm3 (150-450); RED CELL DISTRIBUTION WIDTH 15.1 % (11.5-14.5)
[2017-01-24 06:51] LABS: ALBUMIN 2.7 GM/DL (3.2-5.2); ALBUMIN/GLOBULIN RATIO 0.79 (1.00-1.93); BILIRUBIN,TOTAL 0.3 MG/DL (0.2-1.0); CALCIUM LEVEL 8.6 MG/DL (8.8-10.2); CREATININE FOR GFR 1.03 MG/DL (0.55-1.02); GLOMERULAR FILTRATION RATE 54.9 (>32); MAGNESIUM LEVEL 2.5 MG/DL (1.8-2.4); POTASSIUM SERUM 4.5 MEQ/L (3.5-5.1); TOTAL PROTEIN 6.1 GM/DL (6.4-8.2)
[2017-01-24 06:57] LABS: WHITE BLOOD COUNT 20.9 K/mm3 (4.0-10.0)
[2017-01-24 07:54] LABS: ANISOCYTOSIS 1+; EOSINOPHILS 1 % (0-5); HYPOCHROMASIA 1+
[2017-01-24 07:55] LABS: SMUDGE CELLS 1+
[2017-01-24] MEDS ORDERED: LR 1,000 ML IV SCH (08:30)
[2017-01-24] MEDS: ENOXAPARIN 80 MG/0.8 ML SYRINGE (J1650) SC SCH (09:00)
[2017-01-24] MEDS: TUSSICAPS ER 10/8MG CAPSULE PO SCH ×2 (09:59→20:13)
[2017-01-24] MEDS: PANTOPRAZOLE 40MG TAB (PROTONIX) PO SCH (09:59)
[2017-01-24] MEDS ORDERED: BUPIVACAINE/EPIN 0.25% 30 ML VIAL As Ordered ONE (14:09)
[2017-01-24] MEDS ORDERED: MIDAZOLAM INJ 2 MG/2 ML VIAL (J2250) As Ordered ONE ×2 (14:10→15:23)
[2017-01-24] MEDS ORDERED: fentaNYL 100 MCG/2 ML INJECTION (J3010) As Ordered ONE (14:10)
[2017-01-24] MEDS ORDERED: PROPOFOL 200 MG/20 ML VIAL As Ordered ONE (14:11)
[2017-01-24] MEDS ORDERED: LIDOCAINE 2% INJ 100 MG/5 ML SDV (FOR ANES.) As Ordered ONE (14:11)
[2017-01-24] MEDS ORDERED: BUPIVACAINE/EPIN 0.25% 30 ML VIAL XX ONE (15:27)
--- NOTE | 2017-01-24 16:55 | RO ---
DATE OF PROCEDURE: 01/24/2017 PREOPERATIVE DIAGNOSIS: Right axillary adenopathy. Question lymphoma. POSTOPERATIVE DIAGNOSIS: Right axillary adenopathy. Question lymphoma. PROCEDURE: Excision of right axillary lymph node. SURGEON: Malachi Conn ANESTHESIA: Local with sedation. ESTIMATED BLOOD LOSS: Minima. FLUIDS: Crystalloid. BRIEF PROCEDURE SUMMARY: The patient was brought to the operating room and was given general anesthesia. After adequate anesthesia and preoperative antibiotics were given, the patient was prepped and draped in the usual sterile fashion. The patient was placed in the airplane position with left side down, right arm straight out and the axilla was then was infiltrated with local. The 15 blade was used to create the skin incision. Electrocautery was used cut through subcutaneous tissue down to the clavipectoral fascia which was opened. Then under palpation I was able to feel the multiple lymph nodes in the axilla. One large lymph node that was right underneath the incision was immobilized with some minimal blunt dissection as well as some electrocautery and the loose areolar tissue but there was some small vessels in what appeared to be probable lymphatics that were clipped as I went through and went around the edges of this. However, the base of this seemed to be attached to another lymph node inferiorly and I transected at that continuous area. Hemostasis was achieved with some minimal pressure and some and some minimal cautery. The dermis was brought together with 3-0 Vicryl. 4-0 Vicryl was used to approximate the skin. Steri-Strips and a dry sterile dressing was applied. The patient was awakened from anesthesia, brought to recovery room awake, alert, and hemodynamically stable. Sponge and needle counts correct times two.
--- NOTE | 2017-01-24 20:10 | IPNPDOC ---
Subjective Date Seen The patient was seen on 01/24/17. Subjective Chief Complaint/HPI The patient is a 81-year-old female admitted with a reason for visit of Lymphadenopathy Abdominal. Events since last encounter no acute events overnight. comfortable ambulating. Denied cp/pal/sob/n/v. abd pain improved, cough improved Objective Physical Examination General Exam: Positive: Alert, Cooperative, No Acute Distress Eye Exam: Positive: EOMI, PERRLA ENT Exam: Positive: Atraumatic, Mucous membr. moist/pink Neck Exam: Positive: Supple Chest Exam: Positive: Clear to auscultation, Normal air movement Heart Exam: Positive: Normal S1, Normal S2, Rate Normal, Regular Rhythm Abdomen Exam: Positive: Normal bowel sounds, Soft, Tenderness (minimum tenderness, brusing) Extremity Exam: Negative: Clubbing, Edema Assessment /Plan Problems (1) Abdominal pain Status: Acute Problem Text: improved ct showed abd lymphadenopathy, see bellow tolerated, pain med surgery Dr Conn consulted (2) Lymphadenopathy Status: Acute Problem Text: DDX worsening CLL vs possible advance to difuse b cell lymphoma Esophageal mass evaluaed upper GI series neg, likely lymphadenopathy Surgery Dr Conn consulted, for lymphnode biopsy 3/[address] Karimi pt's oncology, image study sent to her office Dr Aden consulted patient refused transfer to [facility], aware receiving sub-optimal care given inpatient chemo not available at [facility] peripheral smear appreciated, flow cytometry (3) Generalized weakness Status: Acute Problem Text: likely secondary to underlying malignancy, PT, see above (4) PE (pulmonary embolism) Status: Chronic Problem Text: coumadin on hold, for possible procedures f/u INR restart coumadin tomorrow as per Dr Conn lovenox SQ BID (5) HTN (hypertension) Status: Chronic Problem Text: c/w med (6) Hypothyroid Status: Chronic Problem Text: c/w med (7) GERD (gastroesophageal reflux disease) Status: Chronic Problem Text: ppi (8) Constipation Status: Chronic Problem Text: bowel meds (9) Leukocytosis Status: Acute Problem Text: possible 2/2 worsening CLL vs infection UTI f/u culture alan peripheral smear apreciated see above Plan/VTE VTE Prophylaxis Ordered?: Yes (Lovenox SQ for PE treatement, will bridge to coumadin tomorrow) Disposition PT, therapeutic INR, restart coumadin tomorrow, f/u path VS, I&O, 24H, Fishbone Vital Signs/I&O Vital Signs Date Time Temp Pulse Resp B/P Pulse Ox O2 Delivery O2 Flow Rate FiO2 01/24/17 19:00 98.1 82 18 138/73 92 Room Air 01/24/17 16:11 2 I&O- Last 24 Hours up to 6 AM 01/24/17 06:00 Intake Total 560 ml Output Total 400 ml Balance 160 ml Laboratory Data 24H LABS Laboratory Tests 2 01/24/17 06:24: Blood Urea Nitrogen 11, Creatinine 1.03H, Sodium Level 139, Potassium Level 4.5# , Chloride Level 108H, Carbon Dioxide Level 24, Calcium Level 8.6L, Aspartate Amino Transf (AST/SGOT) 21, Alanine Aminotransferase (ALT/SGPT) 20, Alkaline Phosphatase 78, Total Bilirubin 0.3, Total Protein 6.1L, Albumin 2.7L, Albumin/ Globulin Ratio 0.79L, Anion Gap 7L, Anisocytosis 1+, Atypical Lymphocytes 5, Eosinophils (Manual) 1, Glomerular Filtration Rate 54.9, Hypochromasia 1+, Lymphocytes (Manual) 72H, Magnesium Level 2.5H, Neutrophils 22L, Platelet Estimate NORMAL, Prothromb Time International Ratio 1.23, Prothrombin Time 15.6H , Smudge Cells 1+ CBC/BMP Laboratory Tests 01/24/17 06:24 Calcium Level 8.6 L, Aspartate Amino Transf (AST/SGOT) 21, Alanine Aminotransferase (ALT/SGPT) 20, Alkaline Phosphatase 78, Total Bilirubin 0.3, Total Protein 6.1 L, Albumin 2.7 L, Red Blood Count 3.58 L, Mean Corpuscular Volume 90.2, Mean Corpuscular Hemoglobin 27.9, Mean Corpuscular Hemoglobin Concent 30.9 L, Red Cell Distribution Width 15.1 H Microbiology Microbiology 01/20/17 Blood Culture - Preliminary, Resulted No Growth after 72 hours. All specime... 01/23/17 Gastrointestinal Tract Panel (PCR) - Final, Complete 01/20/17 Urine Culture - Final, Complete Serratia Marcescens CIARAN JAMES MD Jan 24, 2017 20:09
[2017-01-24] MEDS: PERCOCET 5MG/325MG TAB PO PRN (20:19)
[2017-01-25 02:00] VITALS: BP 131/64
[2017-01-25] MEDS: MEROPENEM INJ 1 GM in D5W MINI-BAG PLUS 100 ML IV SCH ×2 (03:24→16:12)
[2017-01-25 05:30] VITALS: BP 147/77
[2017-01-25] MEDS: LEVOTHYROXINE 0.1 MG TAB (100 MCG) PO SCH (05:47)
[2017-01-25 06:35] LABS: ALBUMIN 2.8 GM/DL (3.2-5.2); ALKALINE PHOSPHATASE 77 U/L (45-117); ALT/SGPT 24 U/L (12-78); ANION GAP 8 MEQ/L (8-16); AST/SGOT 24 U/L (15-37); BILIRUBIN,TOTAL 0.4 MG/DL (0.2-1.0); BLOOD UREA NITROGEN 11 MG/DL (7-18); CALCIUM LEVEL 8.5 MG/DL (8.8-10.2); CARBON DIOXIDE LEVEL 26 MEQ/L (21-32); CHLORIDE LEVEL 107 MEQ/L (98-107); CREATININE FOR GFR 0.86 MG/DL (0.55-1.02); GLOMERULAR FILTRATION RATE > 60.0 (>32); GLUCOSE, FASTING 84 MG/DL (83-110); MAGNESIUM LEVEL 2.3 MG/DL (1.8-2.4); SODIUM LEVEL 141 MEQ/L (136-145); TOTAL PROTEIN 5.9 GM/DL (6.4-8.2)
[2017-01-25 06:38] LABS: INR 1.19
[2017-01-25 07:27] LABS: DIFF SLIDE NUMBER 16; MEAN CORPUSCULAR HEMOGLOBIN 28.6 pg (27.0-33.0); MEAN CORPUSCULAR HGB CONC 31.4 g/dl (32.0-36.5); MEAN CORPUSCULAR VOLUME 90.9 fl (80.0-96.0); PLATELET COUNT, AUTOMATED 180 k/mm3 (150-450); RED CELL DISTRIBUTION WIDTH 15.5 % (11.5-14.5)
[2017-01-25 07:34] LABS: WHITE BLOOD COUNT 18.7 K/mm3 (4.0-10.0)
[2017-01-25 08:11] LABS: EOSINOPHILS 3 % (0-5)
[2017-01-25 08:12] LABS: HYPOCHROMASIA 1+
[2017-01-25 08:13] LABS: SMUDGE CELLS 1+
[2017-01-25] MEDS: TUSSICAPS ER 10/8MG CAPSULE PO SCH ×2 (09:15→20:23)
[2017-01-25] MEDS: PANTOPRAZOLE 40MG TAB (PROTONIX) PO SCH (09:15)
[2017-01-25] MEDS: ENOXAPARIN 80 MG/0.8 ML SYRINGE (J1650) SC SCH ×2 (09:15→20:23)
--- NOTE | 2017-01-25 09:57 | IPN ---
DATE: 01/24/2017 MEDICAL ONCOLOGY INPATIENT FOLLOWUP: Lizzy underwent right axillary excisional biopsy today, working up a possible Menard's transformation of her CD38 positive CLL originally diagnosed in 2006. Since seeing her initially, I have uncovered the records of her treatment history from 2005 to the present. She presented in 2006 with above and below the diaphragm extensive bulky axial lymphadenopathy, WBC count greater than 200, anemia and thrombocytopenia. She was treated initially with chemotherapy, did not tolerate rituximab. She has essentially required retreatment at least once every 2 years for progressive disease. She has been treated successfully with FC, bendamustine, CVP, and finally ibrutinib. She has been intolerant of some other single agent immune mediated drugs. It appears from the records Lizzy has never had major resolution of her adenopathy, which has predominantly involved chest, abdomen, mesentery, inguinal and axillary areas. IMPRESSION: 1. 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 Now with progression on ibrutinib though admittedly with body adherence and on reduced dose due to difficulty tolerating ibrutinib. Rule out Menard's transformation. 2. Diffuse large B-cell lymphoma. PLAN: We wait results of today's biopsy, which may take several days. In the interim, I would recommend she stay off the ibrutinib until she is feeling better. At her request, I will discuss the case further with Dr. Karimi of [facility] before Lizzy formally transfers her care to [facility] oncology. There are not many alternatives in terms of treatment left for Lizzy. If no evidence of DLBCL, one alternative would be to retreat with ibrutinib on a slightly higher dose, for example 280 mg daily and consistently to see if she responds to this agent where she has generally tolerated well. This would represent a higher dose. Another alternative would be chemotherapy, example fludarabine, Cytoxan. 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 3. Today, I did introduce to Lizzy the idea that her disease is progressing there are not unlimited options and that palliation should be our clinical goal. 4. If diffuse large B-cell lymphoma is found, we could try her on very high dose prednisone, possibly with even an oral cyclophosphamide and observe. While waiting for results of biopsy, I will see her intermittently. If she is discharged home, she should be seen in oncology office within the less than a week of discharge. Please contact our new nurse navigator, Whitney Benavides, , if any difficulties making an appointment. MICHELLE
[2017-01-25 10:00] VITALS: BP 130/68
[2017-01-25 13:20] VITALS: BP 129/67
[2017-01-25] MEDS: WARFARIN SOD 5 MG TAB PO SCH (16:12)
--- NOTE | 2017-01-25 16:59 | IPNPDOC ---
Subjective Date Seen The patient was seen on 01/25/17. Subjective Chief Complaint/HPI The patient is a 81-year-old female admitted with a reason for visit of Lymphadenopathy Abdominal. Events since last encounter No acute events overnight, abd pain improved, minimum, cough improved. Denied cp /n/v/sob. Objective Physical Examination General Exam: Positive: Alert, Cooperative, No Acute Distress Eye Exam: Positive: EOMI, PERRLA ENT Exam: Positive: Atraumatic, Mucous membr. moist/pink Neck Exam: Positive: Supple Chest Exam: Positive: Clear to auscultation, Normal air movement Heart Exam: Positive: Normal S1, Normal S2, Rate Normal, Regular Rhythm Abdomen Exam: Positive: Normal bowel sounds, Soft, Tenderness (minimum tenderness, brusing) Extremity Exam: Negative: Clubbing, Edema Assessment /Plan Problems (1) Abdominal pain Status: Acute Problem Text: improved ct showed abd lymphadenopathy, see bellow tolerated, pain med surgery Dr Conn consulted (2) Lymphadenopathy Status: Acute Problem Text: DDX worsening CLL vs possible advance to difuse b cell lymphoma Esophageal mass evaluaed upper GI series neg, likely lymphadenopathy Surgery Dr Conn consulted, for lymphnode biopsy 3/[address] Karimi pt's oncology, image study sent to her office Dr Aden consulted patient refused transfer to [facility], aware receiving sub-optimal care given inpatient chemo not available at [facility] peripheral smear appreciated, flow cytometry and pathology (3) Generalized weakness Status: Acute Problem Text: likely secondary to underlying malignancy, PT, see above (4) PE (pulmonary embolism) Status: Chronic Problem Text: restarted coumadin after procedure, lovenox bridge to coumadin f/u INR (5) HTN (hypertension) Status: Chronic Problem Text: c/w med (6) Hypothyroid Status: Chronic Problem Text: c/w med (7) GERD (gastroesophageal reflux disease) Status: Chronic Problem Text: ppi (8) Constipation Status: Chronic Problem Text: bowel meds (9) Leukocytosis Status: Acute Problem Text: possible 2/2 worsening CLL vs infection UTI f/u culture alan peripheral smear apreciated see above Plan/VTE VTE Prophylaxis Ordered?: Yes (Lovenox SQ for PE treatement, will bridge to coumadin ) Disposition therapeutic INR, passed PT, oncology final recs and pathology f/u inpatient vs outpatient VS, I&O, 24H, Fishbone Vital Signs/I&O Vital Signs Date Time Temp Pulse Resp B/P Pulse Ox O2 Delivery O2 Flow Rate FiO2 01/25/17 13:20 97.5 94 18 129/67 94 Room Air 01/24/17 16:11 2 I&O- Last 24 Hours up to 6 AM 01/25/17 06:00 Intake Total 860 ml Output Total 410 ml Balance 450 ml Laboratory Data 24H LABS Laboratory Tests 2 01/25/17 05:18: Blood Urea Nitrogen 11, Creatinine 0.86, Sodium Level 141, Potassium Level 4.0, Chloride Level 107, Carbon Dioxide Level 26, Calcium Level 8.5L, Aspartate Amino Transf (AST/SGOT) 24, Alanine Aminotransferase (ALT/SGPT) 24, Alkaline Phosphatase 77, Total Bilirubin 0.4, Total Protein 5.9L, Albumin 2.8L, Albumin/ Globulin Ratio 0.90L, Anion Gap 8, Atypical Lymphocytes 1, Eosinophils (Manual) 3, Glomerular Filtration Rate > 60.0, Hypochromasia 1+, Lymphocytes (Manual) 70H , Magnesium Level 2.3, Neutrophils 26L, Platelet Estimate NORMAL, Prothromb Time International Ratio 1.19, Prothrombin Time 15.2H, Smudge Cells 1+ CBC/BMP Laboratory Tests 01/25/17 05:18 Calcium Level 8.5 L, Aspartate Amino Transf (AST/SGOT) 24, Alanine Aminotransferase (ALT/SGPT) 24, Alkaline Phosphatase 77, Total Bilirubin 0.4, Total Protein 5.9 L, Albumin 2.8 L, Red Blood Count 3.46 L, Mean Corpuscular Volume 90.9, Mean Corpuscular Hemoglobin 28.6, Mean Corpuscular Hemoglobin Concent 31.4 L, Red Cell Distribution Width 15.5 H Microbiology Microbiology 01/20/17 Blood Culture - Preliminary, Resulted No Growth after 72 hours. All specime... 01/23/17 Gastrointestinal Tract Panel (PCR) - Final, Complete 01/20/17 Urine Culture - Final, Complete Serratia Marcescens CIARAN JAMES MD Jan 25, 2017 16:59
[2017-01-25 18:00] VITALS: BP 140/68
[2017-01-25] MEDS: PERCOCET 5MG/325MG TAB PO PRN (20:24)
[2017-01-25 21:00] VITALS: BP 130/65
[2017-01-26] MEDS: MEROPENEM INJ 1 GM in D5W MINI-BAG PLUS 100 ML IV SCH ×2 (03:20→15:09)
[2017-01-26] MEDS: LEVOTHYROXINE 0.1 MG TAB (100 MCG) PO SCH (04:03)
[2017-01-26 05:25] VITALS: BP 136/70
[2017-01-26 06:21] LABS: MEAN CORPUSCULAR HEMOGLOBIN 28.7 pg (27.0-33.0); MEAN CORPUSCULAR HGB CONC 32.2 g/dl (32.0-36.5); RED CELL DISTRIBUTION WIDTH 15.4 % (11.5-14.5); WHITE BLOOD COUNT 22.2 K/mm3 (4.0-10.0)
[2017-01-26 06:38] LABS: INR 1.18
[2017-01-26 06:48] LABS: ANION GAP 10 MEQ/L (8-16); BLOOD UREA NITROGEN 14 MG/DL (7-18); CARBON DIOXIDE LEVEL 25 MEQ/L (21-32); CHLORIDE LEVEL 105 MEQ/L (98-107); CREATININE FOR GFR 0.92 MG/DL (0.55-1.02); GLOMERULAR FILTRATION RATE > 60.0 (>32); GLUCOSE, FASTING 98 MG/DL (83-110); MAGNESIUM LEVEL 2.4 MG/DL (1.8-2.4); SODIUM LEVEL 140 MEQ/L (136-145)
[2017-01-26] MEDS: ONDANSETRON 4MG/2ML VIAL (J2405) IV PRN (07:02)
[2017-01-26] MEDS: TUSSICAPS ER 10/8MG CAPSULE PO SCH ×2 (09:12→20:13)
[2017-01-26] MEDS: ENOXAPARIN 80 MG/0.8 ML SYRINGE (J1650) SC SCH ×2 (09:12→20:13)
[2017-01-26] MEDS: PANTOPRAZOLE 40MG TAB (PROTONIX) PO SCH (09:12)
[2017-01-26 14:00] VITALS: BP 139/70
--- NOTE | 2017-01-26 16:32 | IPNPDOC ---
Subjective Date Seen The patient was seen on 01/26/17. Subjective Chief Complaint/HPI The patient is a 81-year-old female admitted with a reason for visit of Lymphadenopathy Abdominal. Events since last encounter No acute events overnight. Reported nausea, no vomiting. Denied f/c/cp/sob. Objective Physical Examination General Exam: Positive: Alert, Cooperative, No Acute Distress Eye Exam: Positive: EOMI, PERRLA ENT Exam: Positive: Atraumatic, Mucous membr. moist/pink Neck Exam: Positive: Supple Chest Exam: Positive: Clear to auscultation, Normal air movement Heart Exam: Positive: Normal S1, Normal S2, Rate Normal, Regular Rhythm Abdomen Exam: Positive: Normal bowel sounds, Soft, Tenderness (minimum tenderness, brusing) Extremity Exam: Negative: Clubbing, Edema Assessment /Plan Problems (1) Abdominal pain Status: Acute Problem Text: improved ct showed abd lymphadenopathy, see bellow tolerated, pain med surgery Dr Conn consulted (2) Lymphadenopathy Status: Acute Problem Text: DDX worsening CLL vs possible advance to difuse b cell lymphoma Esophageal mass evaluaed upper GI series neg, likely lymphadenopathy Surgery Dr Conn consulted, for lymphnode biopsy 3/[address] Karimi pt's oncology, image study sent to her office Dr Aden consulted patient refused transfer to [facility], aware receiving sub-optimal care given inpatient chemo not available at [facility] peripheral smear appreciated, flow cytometry and pathology (3) Generalized weakness Status: Acute Problem Text: likely secondary to underlying malignancy, PT, see above (4) PE (pulmonary embolism) Status: Chronic Problem Text: restarted coumadin after procedure, lovenox bridge to coumadin f/u INR (5) HTN (hypertension) Status: Chronic Problem Text: c/w med (6) Hypothyroid Status: Chronic Problem Text: c/w med (7) GERD (gastroesophageal reflux disease) Status: Chronic Problem Text: ppi (8) Constipation Status: Chronic Problem Text: bowel meds (9) Leukocytosis Status: Acute Problem Text: possible 2/2 worsening CLL vs infection UTI f/u culture alan peripheral smear apreciated see above Plan/VTE VTE Prophylaxis Ordered?: Yes (Lovenox SQ for PE treatement, will bridge to coumadin ) Disposition passed PT, pending therapeutic INR, and Path, oncology final recs. VS, I&O, 24H, Fishbone Vital Signs/I&O Vital Signs Date Time Temp Pulse Resp B/P Pulse Ox O2 Delivery O2 Flow Rate FiO2 01/26/17 14:00 97.8 87 18 139/70 92 Room Air 01/24/17 16:11 2 I&O- Last 24 Hours up to 6 AM 01/26/17 06:00 Intake Total 2020 ml Output Total 550 ml Balance 1470 ml Laboratory Data 24H LABS Laboratory Tests 2 01/26/17 06:03: Anion Gap 10, Blood Urea Nitrogen 14, Creatinine 0.92, Sodium Level 140, Potassium Level 4.0, Chloride Level 105, Carbon Dioxide Level 25, Calcium Level 9.0, Glomerular Filtration Rate > 60.0, Magnesium Level 2.4, Prothromb Time International Ratio 1.18, Prothrombin Time 15.1H CBC/BMP Laboratory Tests 01/26/17 06:03 Calcium Level 9.0, Red Blood Count 3.45 L, Mean Corpuscular Volume 89.0, Mean Corpuscular Hemoglobin 28.7, Mean Corpuscular Hemoglobin Concent 32.2, Red Cell Distribution Width 15.4 H Microbiology Microbiology 01/20/17 Blood Culture - Final, Complete NO GROWTH AFTER 5 DAYS 01/23/17 Gastrointestinal Tract Panel (PCR) - Final, Complete 01/20/17 Urine Culture - Final, Complete Serratia Marcescens CIARAN JAMES MD Jan 26, 2017 16:32
[2017-01-26] MEDS: WARFARIN SOD 5 MG TAB PO SCH (16:53)
[2017-01-26] MEDS: ACETAMINOPHEN TAB 650MG DOSE (2X325MG) PO PRN (20:13)
[2017-01-26 21:15] VITALS: BP 140/72
[2017-01-27] MEDS: MEROPENEM INJ 1 GM in D5W MINI-BAG PLUS 100 ML IV SCH ×2 (04:01→16:11)
[2017-01-27 05:35] VITALS: BP 133/63
[2017-01-27] MEDS: LEVOTHYROXINE 0.1 MG TAB (100 MCG) PO SCH (05:46)
[2017-01-27 06:03] LABS: MEAN CORPUSCULAR HEMOGLOBIN 28.2 pg (27.0-33.0); MEAN CORPUSCULAR HGB CONC 31.7 g/dl (32.0-36.5); MEAN CORPUSCULAR VOLUME 88.9 fl (80.0-96.0); RED CELL DISTRIBUTION WIDTH 15.5 % (11.5-14.5); WHITE BLOOD COUNT 21.5 K/mm3 (4.0-10.0)
[2017-01-27 06:19] LABS: ANION GAP 8 MEQ/L (8-16); BLOOD UREA NITROGEN 15 MG/DL (7-18); CALCIUM LEVEL 8.6 MG/DL (8.8-10.2); CARBON DIOXIDE LEVEL 26 MEQ/L (21-32); CHLORIDE LEVEL 106 MEQ/L (98-107); CREATININE FOR GFR 0.91 MG/DL (0.55-1.02); GLOMERULAR FILTRATION RATE > 60.0 (>32); GLUCOSE, FASTING 91 MG/DL (83-110); MAGNESIUM LEVEL 2.3 MG/DL (1.8-2.4); SODIUM LEVEL 140 MEQ/L (136-145)
[2017-01-27 07:53] LABS: INR 1.41
[2017-01-27] MEDS: TUSSICAPS ER 10/8MG CAPSULE PO SCH ×2 (09:14→20:15)
[2017-01-27] MEDS: PANTOPRAZOLE 40MG TAB (PROTONIX) PO SCH (09:14)
[2017-01-27] MEDS: ENOXAPARIN 80 MG/0.8 ML SYRINGE (J1650) SC SCH ×2 (09:14→20:15)
--- NOTE | 2017-01-27 13:39 | IPNPDOC ---
Subjective Date Seen The patient was seen on 01/27/17. Subjective Chief Complaint/HPI The patient is a 81-year-old female admitted with a reason for visit of Lymphadenopathy Abdominal. Events since last encounter no acute events, no further nausea, Denied CP/pal/f/c/sob. cough improved Objective Physical Examination General Exam: Positive: Alert, Cooperative, No Acute Distress Eye Exam: Positive: EOMI, PERRLA ENT Exam: Positive: Atraumatic, Mucous membr. moist/pink Neck Exam: Positive: Supple Chest Exam: Positive: Clear to auscultation, Normal air movement Heart Exam: Positive: Normal S1, Normal S2, Rate Normal, Regular Rhythm Abdomen Exam: Positive: Normal bowel sounds, Soft, Tenderness Extremity Exam: Negative: Clubbing, Edema Assessment /Plan Problems (1) Abdominal pain Status: Acute Problem Text: improved ct showed abd lymphadenopathy, see bellow tolerated, pain med surgery Dr Conn consulted (2) Lymphadenopathy Status: Acute Problem Text: DDX worsening CLL vs possible advance to difuse b cell lymphoma Esophageal mass evaluaed upper GI series neg, likely lymphadenopathy Surgery Dr Conn consulted, for lymphnode biopsy 3/[address] Karimi pt's oncology, image study sent to her office Dr Aden consulted patient refused transfer to [facility] initially, aware receiving sub-optimal care given inpatient chemo not available at [facility] peripheral smear appreciated, f/u flow cytometry and pathology (3) Generalized weakness Status: Acute Problem Text: likely secondary to underlying malignancy, PT, see above (4) PE (pulmonary embolism) Status: Chronic Problem Text: restarted coumadin after procedure, lovenox bridge to coumadin f/u INR (5) HTN (hypertension) Status: Chronic Problem Text: c/w med (6) Hypothyroid Status: Chronic Problem Text: c/w med (7) GERD (gastroesophageal reflux disease) Status: Chronic Problem Text: ppi (8) Constipation Status: Chronic Problem Text: bowel meds (9) Leukocytosis Status: Acute Problem Text: possible 2/2 worsening CLL vs infection UTI f/u culture alan peripheral smear apreciated see above Plan/VTE VTE Prophylaxis Ordered?: Yes (Lovenox SQ for PE treatement, will bridge to coumadin ) Disposition pending therapeutic INR, passed PT, f/u path VS, I&O, 24H, Fishbone Vital Signs/I&O Vital Signs Date Time Temp Pulse Resp B/P Pulse Ox O2 Delivery O2 Flow Rate FiO2 01/27/17 09:00 Room Air 01/27/17 05:35 97.6 71 18 133/63 91 01/24/17 16:11 2 I&O- Last 24 Hours up to 6 AM 01/27/17 06:00 Intake Total 2280 ml Output Total 0 ml Balance 2280 ml Laboratory Data 24H LABS Laboratory Tests 2 01/27/17 05:12: Prothromb Time International Ratio 1.41, Prothrombin Time 17.4H 01/27/17 05:15: Anion Gap 8, Blood Urea Nitrogen 15, Creatinine 0.91, Sodium Level 140, Potassium Level 4.0, Chloride Level 106, Carbon Dioxide Level 26, Calcium Level 8.6L, Glomerular Filtration Rate > 60.0, Magnesium Level 2.3 CBC/BMP Laboratory Tests 01/27/17 05:15 Calcium Level 8.6 L, Red Blood Count 3.39 L, Mean Corpuscular Volume 88.9, Mean Corpuscular Hemoglobin 28.2, Mean Corpuscular Hemoglobin Concent 31.7 L, Red Cell Distribution Width 15.5 H Microbiology Microbiology 01/20/17 Blood Culture - Final, Complete NO GROWTH AFTER 5 DAYS 01/23/17 Gastrointestinal Tract Panel (PCR) - Final, Complete 01/20/17 Urine Culture - Final, Complete Serratia Marcescens CIARAN JAMES MD Jan 27, 2017 13:39
[2017-01-27 14:00] VITALS: BP 129/88
[2017-01-27] MEDS: WARFARIN SOD 5 MG TAB PO SCH (16:57)
[2017-01-27] MEDS: ACETAMINOPHEN TAB 650MG DOSE (2X325MG) PO PRN (20:15)
[2017-01-27 22:00] VITALS: BP 130/65
[2017-01-28] MEDS: MEROPENEM INJ 1 GM in D5W MINI-BAG PLUS 100 ML IV SCH ×2 (04:16→16:21)
[2017-01-28] MEDS: LEVOTHYROXINE 0.1 MG TAB (100 MCG) PO SCH (05:08)
[2017-01-28 06:00] VITALS: BP 132/62
[2017-01-28 06:01] LABS: MEAN CORPUSCULAR HEMOGLOBIN 28.2 pg (27.0-33.0); MEAN CORPUSCULAR HGB CONC 31.5 g/dl (32.0-36.5); MEAN CORPUSCULAR VOLUME 89.5 fl (80.0-96.0); RED CELL DISTRIBUTION WIDTH 15.8 % (11.5-14.5); WHITE BLOOD COUNT 22.6 K/mm3 (4.0-10.0)
[2017-01-28 06:17] LABS: INR 1.81
[2017-01-28 06:20] LABS: ANION GAP 8 MEQ/L (8-16); BLOOD UREA NITROGEN 14 MG/DL (7-18); CALCIUM LEVEL 8.6 MG/DL (8.8-10.2); CARBON DIOXIDE LEVEL 26 MEQ/L (21-32); CHLORIDE LEVEL 105 MEQ/L (98-107); CREATININE FOR GFR 0.88 MG/DL (0.55-1.02); GLOMERULAR FILTRATION RATE > 60.0 (>32); GLUCOSE, FASTING 93 MG/DL (83-110); MAGNESIUM LEVEL 2.2 MG/DL (1.8-2.4); POTASSIUM SERUM 3.9 MEQ/L (3.5-5.1); SODIUM LEVEL 139 MEQ/L (136-145)
[2017-01-28] MEDS: TUSSICAPS ER 10/8MG CAPSULE PO SCH ×2 (08:07→20:10)
[2017-01-28] MEDS: PANTOPRAZOLE 40MG TAB (PROTONIX) PO SCH (08:07)
[2017-01-28] MEDS: ENOXAPARIN 80 MG/0.8 ML SYRINGE (J1650) SC SCH ×2 (08:08→20:10)
[2017-01-28] MEDS ORDERED: PANT40TA2 PO (10:08)
--- NOTE | 2017-01-28 10:59 | IPNPDOC ---
Subjective Date Seen The patient was seen on 01/28/17. Subjective Chief Complaint/HPI The patient is a 81-year-old female admitted with a reason for visit of Lymphadenopathy Abdominal. Events since last encounter no acute events overnight. RN reported urinary retention, straight cath down drain 400-500 cc. will monitor. Denied chest pain/sob/n/v. con't to have abd pain unchanged Objective Physical Examination General Exam: Positive: Alert, Cooperative, No Acute Distress Eye Exam: Positive: EOMI, PERRLA ENT Exam: Positive: Atraumatic, Mucous membr. moist/pink Neck Exam: Positive: Supple Chest Exam: Positive: Clear to auscultation, Normal air movement Heart Exam: Positive: Normal S1, Normal S2, Rate Normal, Regular Rhythm Abdomen Exam: Positive: Normal bowel sounds, Soft, Tenderness Extremity Exam: Negative: Clubbing, Edema Assessment /Plan Problems (1) Abdominal pain Status: Acute Problem Text: improved ct showed abd lymphadenopathy, see bellow tolerated, pain med surgery Dr Conn consulted (2) Lymphadenopathy Status: Acute Problem Text: DDX worsening CLL vs possible advance to difuse b cell lymphoma Esophageal mass evaluaed upper GI series neg, likely lymphadenopathy Surgery Dr Conn consulted, for lymphnode biopsy 3/[address] Karimi pt's oncology, image study sent to her office Dr Aden consulted patient refused transfer to [facility] initially, aware receiving sub-optimal care given inpatient chemo not available at [facility] peripheral smear appreciated, f/u flow cytometry and pathology f/u Dr Aden in 7 days (3) UTI (urinary tract infection) Status: Acute Problem Text: treated with merro cultures appreciated (4) Generalized weakness Status: Acute Problem Text: likely secondary to underlying malignancy, PT, see above (5) PE (pulmonary embolism) Status: Chronic Problem Text: restarted coumadin after procedure, lovenox bridge to coumadin f/u INR (6) HTN (hypertension) Status: Chronic Problem Text: c/w med (7) Hypothyroid Status: Chronic Problem Text: c/w med (8) GERD (gastroesophageal reflux disease) Status: Chronic Problem Text: ppi (9) Constipation Status: Chronic Problem Text: bowel meds (10) Leukocytosis Status: Acute Problem Text: possible 2/2 worsening CLL vs infection UTI f/u culture alan peripheral smear apreciated see above (11) Urinary retention Status: Acute Problem Text: straight cathed, f/u output ch if recurrence Plan/VTE VTE Prophylaxis Ordered?: Yes (Lovenox SQ for PE treatement, will bridge to coumadin ) Disposition Pending therapeutic INR, passed PT VS, I&O, 24H, Fishbone Vital Signs/I&O Vital Signs Date Time Temp Pulse Resp B/P Pulse Ox O2 Delivery O2 Flow Rate FiO2 01/28/17 08:00 Room Air 01/28/17 06:00 96.7 79 18 132/62 92 01/24/17 16:11 2 I&O- Last 24 Hours up to 6 AM 01/28/17 05:59 Intake Total 3260 ml Output Total 450 ml Balance 2810 ml Laboratory Data 24H LABS Laboratory Tests 2 01/28/17 05:35: Anion Gap 8, Blood Urea Nitrogen 14, Creatinine 0.88, Sodium Level 139, Potassium Level 3.9, Chloride Level 105, Carbon Dioxide Level 26, Calcium Level 8.6L, Glomerular Filtration Rate > 60.0, Magnesium Level 2.2, Prothromb Time International Ratio 1.81, Prothrombin Time 21.1H CBC/BMP Laboratory Tests 01/28/17 05:35 Calcium Level 8.6 L, Red Blood Count 3.38 L, Mean Corpuscular Volume 89.5, Mean Corpuscular Hemoglobin 28.2, Mean Corpuscular Hemoglobin Concent 31.5 L, Red Cell Distribution Width 15.8 H Microbiology Microbiology 01/20/17 Blood Culture - Final, Complete NO GROWTH AFTER 5 DAYS 01/23/17 Gastrointestinal Tract Panel (PCR) - Final, Complete 01/20/17 Urine Culture - Final, Complete Serratia Marcescens CIARAN JAMES MD Jan 28, 2017 10:59
--- NOTE | 2017-01-28 11:13 | DSES ---
DATE OF ADMISSION: 01/20/2017 DATE OF DISCHARGE: Likely 01/29/2017, pending therapeutic INR PRIMARY CARE PROVIDER: ANJUM Dvelin ONCOLOGIST: Radha Lee MD and Carmen Kairmi MD GENERAL SURGEON: Malachi Conn Jr., MD FINAL DIAGNOSES: 1. Abdominal pain. 2. Worsening chronic lymphocytic leukemia (CLL). 3. Rule out diffuse large B-cell lymphoma. 4. Generalized weakness. 5. History of pulmonary embolus (PE). 6. Hypertension. 7. Hypothyroidism. 8. Gastroesophageal reflux disease (GERD). 9. Constipation. 10. Leukocytosis secondary to CLL. 11. Abdominal lymphadenopathy possibly secondary to worsening CLL. HISTORY OF PRESENT ILLNESS: This is an 81-year-old female patient with underlying medical history of CLL, follows with Dr. Karimi at [facility], still undergoing chemotherapy, but has hypothyroidism, history of PE on Coumadin, recent November 2016 right knee arthroplasty, and during the admission previously for right knee arthroplasty patient was transferred to [place] for worsening leukocytosis, thrombocytopenia and coagulopathy. Patient also developed hematoma of the right knee. During the hospital stay was transferred to [place], subsequently discharged. Has not seen her oncologist since then and has not restarted her treatment for CLL yet given she has not followed up with her oncologist yet. Patient presented with diffuse abdominal pain described as a squeezing pain, feeling like something is tied up to her, sitting on her abdomen. Patient is unable to sit up and feels better when she lies flat and has decreased appetite with no weight loss or weight gain. Complains of significant bloating and unable to burp up or pass gas. Patient did have a bowel movement on the morning of admission with diarrhea. Describes her pain diffusely without radiation. No medication has been taken. No fever or chills. Reported nausea, no vomiting. No previous history of such episodes. Patient also noticed right axilla lymphadenopathy which is chronic and enlarging over the last 6 months and has not been looked at by her primary care provider or medical oncologist. In the emergency room, CT scan of the abdomen shows large mass at the gastroesophageal (GE) junction as well as significant abdominal lymphadenopathy. Subsequently, the patient is admitted. HOSPITAL COURSE: Patient is admitted to the hospital. Cultures were sent for leukocytosis. Gastrointestinal (GI) panel was sent and was negative. Urine grew Serratia marcescens. Patient was started on meropenem given abdominal pathology. CT scan of the abdomen appreciated. Upper GI series was done to evaluate the GE junction which was negative. Case discussed with general surgeon Dr. Conn. GE junction mass is likely another lymphadenopathy that has been diffusely present in the patient's abdominal and thoracic cavity. Case was discussed with patient's oncologist in [place], Dr. Karimi. Report of the CT scans as well as CTs were sent and our oncologist, Dr. Radha Lee, was consulted status post biopsy of patient's lymphadenopathy. Awaiting pathology. Patient's Coumadin was initially on hold and switched to Lovenox for procedures. Currently patient is bridging back to Coumadin. Physical therapy was done. Discharge pending therapeutic INR. Case was discussed with Dr. Radha Lee. Patient should be ready for discharge and followup with Dr. Radha Lee in 1 week for pathology and further treatment of patient's underlying hematological condition. Followup with primary care provider as well. VITAL SIGNS: Temperature 96.7, pulse 79, respirations 18, blood pressure 132/62, pulse oximetry 92% on room air. LABORATORY DATA: WBC 22.6, hemoglobin and hematocrit 9.5/30.3, platelets 171. Chemistry: Sodium 139, potassium 3.9, chloride 105, bicarbonate 26, BUN 14, creatinine 0.88. DISCHARGE MEDICATIONS: - Protonix 40 mg by mouth daily - vitamin C 500 mg by mouth daily - vitamin D 2000 units by mouth daily - Synthroid 100 mcg by mouth daily - magnesium oxide 400 mg by mouth daily - multivitamin one tablet by mouth daily - sertraline 25 mg by mouth daily - warfarin 2.5 mg by mouth for 2 days of the week and 5 mg by mouth for 5 days of the week DISCHARGE INSTRUCTIONS: Patient is instructed to followup with Dr. Radha Lee in 7 days and followup with primary care provider in 5 days to check INR. Return to the hospital if symptoms worsen.
[2017-01-28] MEDS: ONDANSETRON 4MG/2ML VIAL (J2405) IV PRN (11:14)
[2017-01-28 14:00] VITALS: BP 128/64
[2017-01-28] MEDS: WARFARIN SOD 5 MG TAB PO SCH (16:21)
[2017-01-28 22:00] VITALS: BP 123/64
[2017-01-29] MEDS: MEROPENEM INJ 1 GM in D5W MINI-BAG PLUS 100 ML IV SCH (04:09)
[2017-01-29 05:57] LABS: MEAN CORPUSCULAR HEMOGLOBIN 27.9 pg (27.0-33.0); MEAN CORPUSCULAR HGB CONC 31.1 g/dl (32.0-36.5); MEAN CORPUSCULAR VOLUME 89.6 fl (80.0-96.0); RED CELL DISTRIBUTION WIDTH 16.1 % (11.5-14.5); WHITE BLOOD COUNT 24.1 K/mm3 (4.0-10.0)
[2017-01-29 06:00] VITALS: BP 118/62
[2017-01-29 06:05] LABS: INR 2.39
[2017-01-29] MEDS: LEVOTHYROXINE 0.1 MG TAB (100 MCG) PO SCH (06:06)
[2017-01-29 06:08] LABS: ANION GAP 8 MEQ/L (8-16); BLOOD UREA NITROGEN 16 MG/DL (7-18); CALCIUM LEVEL 8.8 MG/DL (8.8-10.2); CARBON DIOXIDE LEVEL 27 MEQ/L (21-32); CHLORIDE LEVEL 104 MEQ/L (98-107); CREATININE FOR GFR 0.91 MG/DL (0.55-1.02); GLOMERULAR FILTRATION RATE > 60.0 (>32); GLUCOSE, FASTING 96 MG/DL (83-110); MAGNESIUM LEVEL 2.2 MG/DL (1.8-2.4); POTASSIUM SERUM 3.6 MEQ/L (3.5-5.1); SODIUM LEVEL 139 MEQ/L (136-145)
[2017-01-29] MEDS: PANTOPRAZOLE 40MG TAB (PROTONIX) PO SCH (08:26)
[2017-01-29] MEDS: TUSSICAPS ER 10/8MG CAPSULE PO SCH (08:26)
[2017-01-29] MEDS: ENOXAPARIN 80 MG/0.8 ML SYRINGE (J1650) SC SCH (08:26)
[2017-01-29] MEDS ORDERED: NYSTATIN CREAM 15 GM TOP SCH (09:00)
[2017-01-29] MEDS ORDERED: TAMSULOSIN 0.4 MG CAP PO SCH (09:00)
[2017-01-29] MEDS ORDERED: COUM2.5T11 PO (10:58)
[2017-01-29] MEDS ORDERED: COUM1TAB17 PO (10:58)
[2017-01-29] MEDS ORDERED: FLOM5CAP PO (10:58)
[2017-01-29] MEDS ORDERED: PERCOCET PO (10:58)
--- NOTE | 2017-01-29 13:12 | IPNPDOC ---
Text Note Date of Service The patient was seen on 01/29/17. NOTE Pt has been evaluated on 01/29/17. No acute changes overnight. INR is now therapeutic. Had urinary retention again, and Light was placed. Started on Flomax. Will need outpt urology follow up. Will need to f/u with PCP for INR checks. Pt to be d/c today. Please see complete discharge summary from 01/28/[address] Janey Hoover. VS,Storm, I+O VS, Kbe, I+O Laboratory Tests 01/29/17 05:14 Calcium Level 8.8, Red Blood Count 3.29 L, Mean Corpuscular Volume 89.6, Mean Corpuscular Hemoglobin 27.9, Mean Corpuscular Hemoglobin Concent 31.1 L, Red Cell Distribution Width 16.1 H Vital Signs Date Time Temp Pulse Resp B/P Pulse Ox O2 Delivery O2 Flow Rate FiO2 01/29/17 08:26 Room Air 01/29/17 06:00 96.8 77 16 118/62 92 01/24/17 16:11 2 I&O- Last 24 Hours up to 6 AM 01/29/17 06:00 Intake Total 1310 ml Output Total 2020 ml Balance -710 ml HEMA HITCHCOCK MD Jan 29, 2017 13:12
== END 2017-01-29 13:03 | disposition home health service (06) | DRG 824 ==
LOC: M ED 19:10 → M ED INP 23:26 → M PCU 01-21 01:16 → M MSPAV 01-21 12:47
PROVIDERS: ADMIT General Practice; ATTEND Hospitalist
PROC: 07B50ZX Excision of Right Axillary Lymphatic, Open Approach, Diagnostic (ICD-10-PCS; principal; 2017-01-24 08:30)
DX: C91.10 Chronic lymphocytic leukemia of B-cell type not having achieved remission (principal); C85.10 Unspecified B-cell lymphoma, unspecified site; N39.0 Urinary tract infection, site not specified; I10 Essential (primary) hypertension; E03.9 Hypothyroidism, unspecified; K21.9 Gastro-esophageal reflux disease without esophagitis; K59.00 Constipation, unspecified; R53.1 Weakness; B96.89 Other specified bacterial agents as the cause of diseases classified elsewhere; R33.9 Retention of urine, unspecified; D72.829 Elevated white blood cell count, unspecified; Z86.711 Personal history of pulmonary embolism; R59.0 Localized enlarged lymph nodes; Z79.01 Long term (current) use of anticoagulants; Z92.21 Personal history of antineoplastic chemotherapy; Z79.899 Other long term (current) drug therapy; Z90.710 Acquired absence of both cervix and uterus; Z88.0 Allergy status to penicillin; Z88.1 Allergy status to other antibiotic agents; Z88.8 Allergy status to other drugs, medicaments and biological substances

== ENCOUNTER 2017-02-03 12:51 | Inpatient (IN) | payer MEDICARE ==
[~2017-02-03] VITALS: Ht 157.5 cm; Wt 79.2 kg
[~2017-02-03 12:51] MED LIST changes: +MAGN400C PO; +PANT40TA2 PO; +PERCOCET PO; +SERT25TA PO; +SYNT100T PO
[2017-02-03] MEDS ORDERED: ALBUTEROL SULFATE 2.5 MG/0.5 ML INH NEB SOLN INH ONE (13:45)
[2017-02-03] MEDS ORDERED: NS 500 ML IV ONE ×2 (13:45→13:46)
[2017-02-03] MEDS ORDERED: IPRATROPIUM 0.02% SOLN 0.5MG/2.5 ML NEB INH ONE (13:45)
[2017-02-03 14:00] LABS: DIFF SLIDE NUMBER 120; MEAN CORPUSCULAR HEMOGLOBIN 27.5 pg (27.0-33.0); MEAN CORPUSCULAR VOLUME 85.8 fl (80.0-96.0); PLATELET COUNT, AUTOMATED 206 k/mm3 (150-450); RED CELL DISTRIBUTION WIDTH 16.2 % (11.5-14.5)
[2017-02-03 14:02] LABS: WHITE BLOOD COUNT 36.2 K/mm3 (4.0-10.0)
[2017-02-03 14:26] LABS: ALBUMIN 3.1 GM/DL (3.2-5.2); ALBUMIN/GLOBULIN RATIO 0.97 (1.00-1.93); ALKALINE PHOSPHATASE 93 U/L (45-117); ALT/SGPT 25 U/L (12-78); ANION GAP 12 MEQ/L (8-16); AST/SGOT 25 U/L (15-37); BILIRUBIN,DIRECT 0.2 MG/DL (0.0-0.2); BILIRUBIN,TOTAL 0.6 MG/DL (0.2-1.0); BLOOD UREA NITROGEN 14 MG/DL (7-18); CALCIUM LEVEL 8.9 MG/DL (8.8-10.2); CARBON DIOXIDE LEVEL 24 MEQ/L (21-32); CHLORIDE LEVEL 101 MEQ/L (98-107); GLUCOSE, FASTING 94 MG/DL (83-110); POTASSIUM SERUM 3.6 MEQ/L (3.5-5.1); SODIUM LEVEL 137 MEQ/L (136-145); TOTAL PROTEIN 6.3 GM/DL (6.4-8.2)
[2017-02-03 14:31] LABS: ANISOCYTOSIS 2+; BANDS 2 % (< 11); SMUDGE CELLS 2+; THYROXINE (T4) 16.1 UG/DL (4.5-12.0)
[2017-02-03 14:32] LABS: HYPOCHROMASIA 1+; MICROCYTOSIS 1+
[2017-02-03 14:52] LABS: CALCIUM OXALATE CRYSTALS SMALL; YEAST LIKE CELL URINE AUTO SMALL
[2017-02-03 15:05] LABS: MAGNESIUM LEVEL 2.2 MG/DL (1.8-2.4)
[2017-02-03 15:08] LABS: INR 2.02
[2017-02-03] MEDS ORDERED: ISOVUE-370 76% 100ML VIAL (Q9967) As Ordered ONE ×2 (15:16→15:17)
[2017-02-03] MEDS ORDERED: TYLE650T35 PO (15:18)
[2017-02-03] MEDS ORDERED: WARF-18 PO (15:20)
[2017-02-03] MEDS ORDERED: WARF-23 PO (15:20)
[2017-02-03] MEDS ORDERED: WARFARIN SOD 2.5 MG TAB PO SCH (17:00)
[2017-02-03] MEDS ORDERED: MEROPENEM INJ 1 GM in D5W MINI-BAG PLUS 100 ML IV ONE (17:00)
[2017-02-03] MEDS ORDERED: ONDANSETRON 4 MG TAB (S0181) PO PRN (18:00)
[2017-02-03] MEDS ORDERED: WARFARIN SOD 5 MG TAB PO SCH (18:00)
[2017-02-03] MEDS ORDERED: HEPARIN SOD (PORCINE) 5000 UNITS/ML VIAL IV PRN (18:00)
[2017-02-03] MEDS ORDERED: ACETAMINOPHEN TAB 650MG DOSE (2X325MG) PO PRN (18:00)
[2017-02-03] MEDS ORDERED: PERCOCET 5MG/325MG TAB PO PRN (18:00)
[2017-02-03] MEDS ORDERED: ONDANSETRON 4MG/2ML VIAL (J2405) IV PRN (18:00)
[2017-02-03] MEDS ORDERED: HEPARIN SOD (PORCINE) 5000 UNITS/ML VIAL IV ONE (18:30)
--- NOTE | 2017-02-03 18:30 | REPUSA ---
CLINICAL HISTORY: Abnormal CT. TECHNIQUE: Realtime sonographic images were obtained in multiple projections. COMMENTS: The liver is enlarged measuring 18 cm. There is no intra or extrahepatic biliary ductal dilatation. T he common bile duct measures 1.3 cm. The gallbladder is not seen. Massively enlarged abominal lymph nodes, largest in midline measuring 12 cm. Pancreas is not seen. Right kidney measures 10.5 x 4.3 x 4.5 cm. It contains a cyst measuring 1.6 x 1.7 x 1.8 cm. Left ki dney not visualized. Trace amount of free fluid. IMPRESSION: 1. Hepatomegaly. 2. Massively enlarged abominal lymph nodes, largest in midline measuring 12 cm. 3. Right renal cyst. 4. Trace amount of free fluid. Thank you for your kind referral of this patient. We appreciate the opportunity to participate in thi s patient's care.
--- NOTE | 2017-02-03 19:10 | HPEPDOC ---
Medical History and Physical Date of Admission Feb 03, 2017 at 17:46 History and Physical HISTORY AND PHYSICAL Date of admission: 02/03/2017 PCP: Tiffany Muñiz, ANP under Dr. Hendrickson Oncoligists: Dr. Lee and Dr. Karimi Chief complaint: Fullness in Light catheter HPI: 81-year-old female with CLL, history of PE, hypothyroidism who presented to the emergency department after feeling a fullness in Light catheter. She states that she was discharged on January 28 after approximately a 10 day hospital stay, and as she had been unable to void the 2 days prior to admission, she was discharged with a Light catheter. She was supposed to follow up with urology, but has been playing phone tag with the office and does not currently have an appointment scheduled. She states that today, she started to notice that she felt some fullness and pain at the site of her Light catheter. She called her home health nurse, who came out and evaluated her, and recommended that she go to the emergency department. Both yesterday and today, the home health nurse evidently heard findings in her right long and was concerned that she might have pneumonia. The patient reports some cough, but otherwise denies any shortness of breath, fever, or chills. She does report some pain in her back, and states that she could not get comfortable. She has not had an appetite since discharge, and has only been drinking ensures. She has been dry heaving up until yesterday. Past medical history: CLL, history of PE, hypothyroidism Past surgical history: Right knee arthroplasty, bilateral cataract removal, appendectomy, hysterectomy Family history: The patient says she does not know about the history of her family members Social history: Patient currently lives with her . She does not use any tobacco or drink alcohol. Allergies: Doxycycline, mouse protein, moxifloxacin, ofatumumab, penicillin, rituximab Review of systems: General: Negative for fever and chills Eyes: Negative for vision changes and ocular discharge ENT: Negative for sore throat and nose bleed Cardiovascular: Negative for chest pain and palpitations Respiratory: Negative for shortness of breath. Positive for cough GI: Negative for nausea, vomiting. Positive for diarrhea and dry heaves. Musculoskeletal: Negative for neck pain. Positive for back pain Skin: Negative for rash Neuro: Negative for headache, dizziness, numbness, tingling Psych: Positive for depression, negative for suicidal ideation : Positive for discomfort and fullness with her Light catheter Heme: Negative for bruising and bleeding Home meds: See below Physical exam: Vital signs: Vital Sign - Last 24 Hours 02/03/17 02/03/17 02/03/17 02/03/17 12:52 14:51 14:57 15:06 Temp 97.0 Pulse 113 92 90 Resp 17 22 B/P 121/67 96/51 Pulse Ox 90 96 96 O2 Delivery Room Air 02/03/17 02/03/17 02/03/17 02/03/17 15:12 15:21 15:43 15:51 Pulse 92 88 Resp 20 B/P 119/56 111/53 Pulse Ox 96 96 02/03/17 02/03/17 02/03/17 02/03/17 15:54 15:58 16:06 16:13 Pulse 88 B/P 119/59 111/58 Pulse Ox 94 O2 Flow Rate 2 02/03/17 02/03/17 02/03/17 02/03/17 16:21 16:28 16:36 18:36 Pulse 92 90 88 Resp 20 B/P 119/59 Pulse Ox 95 95 96 02/03/17 02/03/17 02/03/17 18:38 18:51 18:53 Pulse 90 Resp 20 B/P 117/61 118/60 Pulse Ox 96 Gen.: awake, alert, no acute distress Eyes: Extraocular movements intact, normal sclera ENT: Moist mucous membranes Cardiovascular: RRR, no murmurs rubs or gallops Lungs: Left lung is relatively clear, but right lung has rhonchi throughout, but worsened in the base Abdomen: Distended, bowel sounds present, tenderness to palpation in the suprapubic area, as well as the right upper quadrant Musculoskeletal: normal range of motion Extremities: 1+ peripheral edema Neuro: alert and oriented 3, normal speech, no focal deficits Psych: Normal mood with congruent affect Labs and radiology: See below Creatinine 1.2 WBC 36 INR 2.0 to, d-dimer elevated UA 2+ leuk esterase, 1+ bacteria Blood cultures and urine cultures pending Lactate, troponin, flu screen are all unremarkable TSH is elevated and free T4 is elevated CT of the chest showed new tiny emboli in the right lower lobe, as well as bibasilar opacities at the right greater than left CT of the abdomen and pelvis shows extensive adenopathy with possible acute cholecystitis Right upper quadrant ultrasound is pending Assessment and plan: 81-year-old female with CLL, history of PE, hypothyroidism who presented to the emergency department after feeling a fullness in Light catheter. She is admitted with new PEs, as well as a UTI and possible acute cholecystitis. 1. New PE, superimposed on old PE with therapeutic INR on Coumadin: The patient has failed Coumadin therapy, and does have an underlying malignancy. At this time, it would be recommended that she either switch to Lovenox injections or get an IVC filter. I discussed both these options with her and her , and they have elected to consider this overnight and hopefully have a decision tomorrow morning. They have done Lovenox injections in the past, and this is evidently very uncomfortable for the patient, however, she is quite worried as well about possibly undergoing a procedure. In the meantime, we'll place her on a heparin drip, as this would easily be stopped and she could easily go to interventional radiology or even have any procedures that general surgery might want to do for her acute cholecystitis. 2. UTI: The patient does have an indwelling Light, and her UA is concerning for a urinary infection. Given her extensive allergies we will start her on meropenem, as this would also cover intra-abdominal sources as well. A urine culture is pending. The patient has a Light as she had difficulty voiding on her most recent admission. At this time, we will remove the Light and check post void residuals. If the patient is able to urinate on her own, then we will not replace it, but if she still has difficulty with retention, we will place a new Light catheter. The patient also will be started on IV fluids. Continue home Flomax. 3. Possible acute cholecystitis: The patient does have some tenderness on exam, as well as dry heaves, but she does not have any true vomiting. CT of the abdomen and pelvis is concerning for possible acute cholecystitis, and right upper quadrant ultrasound is still pending. Both the ER and I have spoken to Dr. Jordan, and he has agreed to see the patient tomorrow morning. As mentioned above, the patient will be on merrem, which should provide coverage for GI source if indeed this represents an acute cholecystitis. 4. Chronic kidney disease stage 2 to 3: The patient's baseline creatinine appears to be in the low one sand she is currently at baseline. 5. Hypothyroidism: The patient's TSH and free T4 are significantly elevated. We will decrease the patient's home Synthroid, and she will need to get her TSH and free T4 rechecked with her PCP in approximately 6 weeks. 6. CLL: The patient states she has not received chemotherapy since the last day of 2015. She currently follows with Dr. russ Lee. DVT prophylaxis: Heparin drip Dispo: admit as an inpatient to the service of Dr. Moya CODE STATUS: Full code Vital Signs see above Laboratory Data Labs 24H Laboratory Tests 2 02/03/17 13:38: Activated Partial Thromboplast Time 33.1, Aspartate Amino Transf (AST/SGOT) 25, Alanine Aminotransferase (ALT/SGPT) 25, Alkaline Phosphatase 93, Total Bilirubin 0.6, Direct Bilirubin 0.2, Albumin 3.1L, Albumin/Globulin Ratio 0.97L , Anion Gap 12, Anisocytosis 2+, Atypical Lymphocytes 3, B-Type Natriuretic Peptide 127H, Band Neutrophils 2, Calcium Level 8.9, Creatine Kinase MB 1.0, Creatine Kinase MB Relative Index 10.00H, D-Dimer, Quantitative 623.0H, Glomerular Filtration Rate 46.0, Hypochromasia 1+, Lactic Acid (Sepsis) 1.9, Lymphocytes (Manual) 77H, Magnesium Level 2.2, Microcytosis 1+, Monocytes ( Manual) 1, Neutrophils 17L, Platelet Estimate NORMAL, Prothromb Time International Ratio 2.02, Prothrombin Time 22.9H, Smudge Cells 2+, Thyroid Stimulating Hormone (TSH) 6.010H, Thyroxine (T4) 16.1H, Total Creatine Kinase 10L, Total Protein 6.3L, Troponin I < 0.02 02/03/17 14:32: Urine Amorphous Sediment , Urine Appearance CLOUDYH, Urine Color JEFFREY, Urine pH 5.0, Urine Specific Ray 1.020, Urine Protein 2+H, Urine Glucose (UA) NEGATIVE, Urine Ketones NEGATIVE, Urine Urobilinogen 0.2, Urine Bilirubin NEGATIVE, Urine Leukocyte Esterase 2+H, Urine Bacteria (Auto) 1+H, Urine Blood NEGATIVE, Urine Calcium Carbonate Cryst(Auto) , Urine Calcium Oxalate Cryst ( Auto) SMALL, Urine Calcium Phosphate Lea (Auto) , Urine Cellular Casts , Urine Cystine Crystals , Urine Granular Casts (Auto) , Urine Hyaline Casts (Auto) 6, Urine Leucine Crystals , Urine Mucus (Auto) SMALL, Urine Nitrite NEGATIVE, Urine Oval Fat Bodies (Auto) , Urine RBC (Auto) 11H, Urine Renal Epithelial Cells , Urine Sperm (Auto) , Urine Squamous Epithelial Cells 1, Urine Transitional Epithelial Cells , Urine Trichomonas (Auto) , Urine Triple Phosphate Cryst (Auto) , Urine Tyrosine Crystals , Urine Uric Acid Crystals ( Auto) , Urine WBC (Auto) 80H, Urine Waxy Casts (Auto) , Urine Yeast-Like Cells ( Auto) SMALLH 02/03/17 18:36: Activated Partial Thromboplast Time 34.1 CBC/BMP Laboratory Tests 02/03/17 13:38 Red Blood Count 3.76 L, Mean Corpuscular Volume 85.8, Mean Corpuscular Hemoglobin 27.5, Mean Corpuscular Hemoglobin Concent 32.0, Red Cell Distribution Width 16.2 H Microbiology Microbiology 02/03/17 Blood Culture, Received Pending 02/03/17 Blood Culture, Received Pending 02/03/17 Group A Streptococcus Screen (RJ), Received Pending 02/03/17 Influenza Virus Type A Antigen - Final, Complete 02/03/17 Influenza Virus Type B Antigen - Final, Complete 02/03/17 Urine Culture, Received Pending Home Medications Scheduled Acetaminophen (Tylenol 8 Hour Arthritis) 650 Mg Tab 650 MG PO Q8H Ascorbic Acid (Vitamin C) 500 Mg Tab 500 MG PO DAILY Cholecalciferol (Vitamin D-3) 2,000 Unit Tab 2,000 UNIT PO DAILY Levothyroxine Sodium (Synthroid) 100 Mcg Tab 100 MCG PO QAM Magnesium Oxide (Magnesium Oxide) 400 Mg Cap 400 MG PO DAILY Multivitamins *[facility] STOCKED* (Thera M Plus *[facility] STOCKED*) 1 Tab Tab 1 TAB PO DAILY Pantoprazole Sodium (Pantoprazole Sodium) 40 Mg Tab 40 MG PO DAILY Tamsulosin Hydrochloride (Flomax) 0.4 Mg Cap 0.4 MG PO DAILY Warfarin Sod (Warfarin Sodium) 2.5 Mg Tab 2.5 MG PO 4XWK TUES,THURS,SAT,SUN Warfarin Sod (Warfarin Sodium) 5 Mg Tab 5 MG PO 3XW MON,WED,FRI Allergies Coded Allergies: Moxifloxacin (Unverified Allergy, Severe, shakes; anxiety, 11/22/16) Penicillins (Verified Allergy, Intermediate, HIVES, 02/28/13) Penicillins Cross Reactors (Verified Allergy, Intermediate, HIVES, 02/28/13) Doxycycline (Unverified Allergy, Unknown, 01/15/16) Mouse Protein (Unverified Allergy, Unknown, 01/15/16) Ofatumumab (Unverified Allergy, Unknown, 01/15/16) Rituximab (Unverified Allergy, Unknown, 01/15/16) CRYSTAL BREWER Feb 03, 2017 19:10
[2017-02-03] MEDS: NS 1,000 ML IV SCH (19:58)
[2017-02-03] MEDS: HEPARIN DRIP 25,000 UNITS in APPROPRIATE DILUENT 1 EA IV SCH (20:01)
[2017-02-03 23:00] VITALS: BP 117/67
[2017-02-04] VITALS (7 sets, daily range): BP systolic 124–139; BP diastolic 61–73; PULSE 88–91
[2017-02-04] MEDS: LEVOTHYROXINE 0.088 MG TAB (88 MCG) PO SCH (05:54)
[2017-02-04] MEDS: NS 1,000 ML IV SCH ×2 (05:54→09:19)
[2017-02-04] MEDS: MEROPENEM INJ 1 GM in D5W MINI-BAG PLUS 100 ML IV SCH ×2 (05:54→18:10)
--- NOTE | 2017-02-04 06:57 | REP ---
REASON: Respiratory distress. COMPARISON: 12/12/2016. The technique utilized in obtaining the radiograph has magnified the cardiac silhouette and accentuated the interstitial markings. FINDINGS: The superior mediastinal structures are midline. The cardiac silhouette is unremarkable in size, shape, and position. The diaphragmatic surfaces of the lungs are regular, and the costophrenic angles are clear. The pulmonary melgoza are clear. The imaged osseous structures are intact. IMPRESSION: There is no acute cardiopulmonary disease. Signed by Wale Krishnamurthy DO 02/04/2017 12:05 P
--- NOTE | 2017-02-04 07:47 | REP ---
History of CLL. Patient has abdominal pain. COMPARISON: 01/20/2017. Contrast utilized 100 mL Isovue 370. There is splenomegaly. There is abnormal enhancement of the gallbladder wall which represents a change from the prior exam. The liver is unchanged. The pancreas is difficult to evaluate secondary to its encasement and marked retroperitoneal adenopathy. There is marked adenopathy of the small bowel mesentery. This has increased compared to the prior exam. The abdominal aorta and paraaortic regions are essentially unchanged. Extensive paraaortic adenopathy is noted status quo to possibly increased. The adrenal glands and kidneys are unchanged remaining within normal limits. There is no free fluid or free air in the abdomen. The bowel loops are within normal limits. Multiple bowel loops are displaced by extensive adenopathy. CT PELVIS: There is extensive pelvic sidewall adenopathy. There is a trace amount of free fluid in the pelvis. The pelvic bowel loops are within normal limits. A Light balloon decompresses the urinary bladder. Bone window technique throughout the exam shows no change in the osseous structures from the prior exam. IMPRESSION: 1. Splenomegaly and extensive adenopathy as described above. 2. Abnormal gallbladder which is contracted, but with enhancing wall. The exam needs to be correlated clinically for acute cholecystitis. 3. Free fluid in the pelvis, probably physiologic. 4. Other findings as described above. Signed by Wale Krishnamurthy DO 02/04/2017 12:06 P
--- NOTE | 2017-02-04 07:50 | REP ---
History of chronic lymphocytic leukemia and dyspnea. COMPARISON: Chest CT 01/15/2016. CONTRAST: 100 mL Isovue 370. There is excellent visualization of the pulmonary arterial vasculature. Multiple low density areas are seen in multiple small right lower lobe pulmonary arteries. There is mediastinal adenopathy and there is extensive axillary adenopathy which has developed since the last exam. There are no pleural or pericardial effusions. The imaged upper abdomen shows splenomegaly and lymphadenopathy in the retroperitoneum. The imaged osseous structures show no significant changes from the prior exam. Evaluation of the lung melgoza show bibasilar opacities with a larger somewhat rounded opacity seen in the right lower lobe. IMPRESSION: 1. Small emboli seen in small right lower lobe pulmonary arterials. 2. Focal consolidation in the right lower lobe, pneumonia versus atelectasis versus the possibility of a concomitant small right lower lobe pulmonary infarction with resultant edema. 3. Extensive adenopathy as described above. 4. Splenomegaly. 5. Other findings as described above. Signed by Wale Krishnamurthy DO 02/04/2017 12:06 P
[2017-02-04 08:36] LABS: DIFF SLIDE NUMBER 119; MEAN CORPUSCULAR HEMOGLOBIN 27.2 pg (27.0-33.0); MEAN CORPUSCULAR HGB CONC 31.6 g/dl (32.0-36.5); PLATELET COUNT, AUTOMATED 156 k/mm3 (150-450); RED CELL DISTRIBUTION WIDTH 16.4 % (11.5-14.5)
[2017-02-04 08:51] LABS: ALBUMIN 2.5 GM/DL (3.2-5.2); ALBUMIN/GLOBULIN RATIO 0.86 (1.00-1.93); BILIRUBIN,TOTAL 0.4 MG/DL (0.2-1.0); CALCIUM LEVEL 8.1 MG/DL (8.8-10.2); CREATININE FOR GFR 0.99 MG/DL (0.55-1.02); GLOMERULAR FILTRATION RATE 57.5 (>32); MAGNESIUM LEVEL 2.1 MG/DL (1.8-2.4); POTASSIUM SERUM 3.5 MEQ/L (3.5-5.1); TOTAL PROTEIN 5.4 GM/DL (6.4-8.2)
[2017-02-04 08:53] LABS: WHITE BLOOD COUNT 28.4 K/mm3 (4.0-10.0)
[2017-02-04 09:06] LABS: ANISOCYTOSIS 1+; HYPOCHROMASIA 2+; SMUDGE CELLS 1+
[2017-02-04] MEDS: VITAMIN D 1,000 INTERNATIONAL UNITS TABLET PO SCH (09:40)
[2017-02-04] MEDS: ASCORBIC ACID 500 MG TAB PO SCH (09:40)
[2017-02-04] MEDS: MULTIVITAMINS/MINERALS THERAP 1 TAB PO SCH (09:40)
[2017-02-04] MEDS: MAGNESIUM OXIDE 400 MG TAB (MAG-OX) PO SCH (09:41)
[2017-02-04] MEDS: TAMSULOSIN 0.4 MG CAP PO SCH (09:41)
[2017-02-04] MEDS: PANTOPRAZOLE 40MG TAB (PROTONIX) PO SCH (09:41)
[2017-02-04 09:43] LABS: INR 2.41
[2017-02-04] MEDS ORDERED: PHYTONADIONE 2.5 MG **1/2 TAB PO ONE (12:00)
--- NOTE | 2017-02-04 12:24 | ECGEPIP ---
Stationary ECG Study [facility] - ED Test Date: 2017-02-03 Pat Name: REY LUU Department: Room: - Gender: F Rn Labor And Delivery: messi : 1935 Requested By: Chirag Feliciano Order Number: [id number] Reading MD: Bria Allen Measurements Intervals [place] Rate: 99 P: 26 AK: 161 QRS: -7 QRSD: 102 T: 50 QT: 353 QTc: 454 Interpretive Statements SINUS RHYTHM WITH OCCASIONAL VENTRICULAR PREMATURE COMPLEXES WITH OCCASIONAL SUPRAVENTRICULAR PREMATURE COMPLEXES NONSPECIFIC T-WAVE ABNORMALITY LEFTWARD AXIS INCREASED RATE 11/22/16 Electronically Signed On 02-04-2017 12:23:57 EDT by Bria Allen
--- NOTE | 2017-02-04 14:22 | IPN ---
DATE OF SERVICE: 02/04/2017 ATTENDING DOCTOR: Dr. Paul Moya The time the patient was seen was this morning at 8:45. The patient was seen and examined at the bedside. The patient has been continued on intravenous (IV) heparin drip, and the patient states that she is feeling the same as last night. Denies any fever or chills, however. Denies any chest pain, any abdominal pains, nausea, vomiting, diarrhea, or constipation. The patient has been taken off Light catheter this morning. Will start a voiding trial this afternoon. Otherwise, the patient denies any other current new complaints. PHYSICAL EXAMINATION: Vital signs: Temperature 97.5, pulse 87, respiration 19, blood pressure 125/69, oxygen saturating at 96% on 2 liters of nasal cannula. General: The patient is a cachectic-looking elderly female, who is alert, awake, oriented times three. Does not appear to be in distress. Lying comfortably in bed with head elevated at 30 degrees. HEENT: Normocephalic, atraumatic. Extraocular motor intact. Mucosa moist. Neck: Supple. The patient does have supraclavicular lymph nodes on bilateral sides and roughly 3-4 cm in size. Cardiovascular: Regular rate and rhythm. S1, S2. No murmurs, rubs, or gallops. Lungs: Clear to auscultation bilaterally. Abdomen: Positive bowel sounds. Soft. Tender to palpate in the epigastric region and at the right upper quadrant. Otherwise, no peritoneal signs. No ecchymosis. Extremities: No edema, clubbing, or cyanosis. Skin: Warm and dry. Neurological: Cranial nerves II-XII intact. No focal neurologic deficit. LABORATORIES: WBC 28.4, hemoglobin 8.1, hematocrit 25.5, with a platelet count of 156, and MCV of 86. Sodium 139, potassium 3.5, chloride 106, bicarbonate 24, BUN 10, creatinine 0.99, GFR 57.5, with a fasting glucose of 88, lactic acid was 0.6, calcium 8.1, magnesium 2.1, total bilirubin 0.4, AST 19, ALT 21, alkaline phosphatase was 74, total protein 5.4, albumin 2.5. PT 26.3, INR 2.41, PTT 73.4. Urine culture is pending. Blood cultures times two are pending. Influenza has been negative. The patient had a gallbladder ultrasound yesterday afternoon. It showed hepatomegaly, massively enlarged abdominal lymph nodes, largest in midline measuring 12 cm, right renal cyst, trace amount of free fluid. The patient also had a CT of the abdomen and pelvis yesterday, which showed splenomegaly with extensive adenopathy, abnormal gallbladder which was contracted with enhancing wall. The examination needs to correlate clinically for acute cholecystitis. Also, the patient has free fluid in the pelvis, probably physiologic. The patient also had CT angiogram of the chest yesterday afternoon, which shows small emboli seen in the right lower lobe, focal consolidation at the right lower lobe, pneumonia versus atelectasis versus possible concomitant right lower lobe pulmonary infarction with resultant edema and extensive adenopathy as described above, splenomegaly. ASSESSMENT AND PLAN: An 81-year-old female with past medical history of chronic lymphocytic leukemia (CLL), history of pulmonary embolism (PE), hypothyroidism, who presented with: 1. Shortness of breath, likely secondary to new PE, superimposed on old PE with therapeutic international normalized ratio (INR). The patient has been placed on heparin drip, and the patient's family would like to switch to Lovenox instead of inferior vena cava (IVC) filter. Will continue to monitor the patient. Currently, the patient has not felt any better. 2. Possible pneumonia. The patient is currently on meropenem. CT angiogram of the chest shows the patient has possible infiltrate at the right side, which could represent atelectasis versus infection versus pulmonary infarction. The patient has been placed on meropenem. Will continue to monitor for now and will deescalate as needed according to blood culture and urine culture result. 3. Urinary tract infection (UTI). The patient does have an indwelling Light. Urinalysis is concerning for a urinary infection. However, the patient was not symptomatic. Will continue meropenem for now and continue to monitor. The patient's Light has been stopped this morning. Will do voiding trials this afternoon and continue to monitor the patient. 4. Possible acute cholecystitis. Dr. Jordan from general surgery was consulted. CT of the abdomen and pelvis was concerning for possible cholecystitis. The patient also has pain on palpation at the right upper quadrant. Ultrasound of abdomen and pelvis could not see the gallbladder. Dr. Jordan is not convinced that this is cholecystitis, however. Will continue to monitor. The pain was likely secondary to enlarged lymph node. 5. Lymphadenopathy at multiple sites, including supraclavicular and intraabdominal. The patient also has a history of CLL. Was receiving chemotherapy until November. It was stopped for the patient's knee replacement. The patient will likely need to followup with oncology for possible restarting the chemotherapy. 6. Chronic kidney disease stage II to III. The patient appears to be at baseline. Continue to monitor. 7. Hypothyroidism. The patient does have an elevated thyroid-stimulating hormone (TSH) and free T4. The patient's home dose has been reduced. Will continue to monitor. The patient may need to check TSH and free T4 with primary care provider in 6 weeks. 8. History of chronic lymphocytic leukemia. The patient will followup with Dr. Lee as outpatient. 9. Deep venous thrombosis (DVT) prophylaxis. On heparin drip. Will switch to Lovenox once the patient's international normalized ratio (INR) is within normal range. Dr. Moya has started the patient on vitamin K for reversal. DISPOSITION: The patient has been admitted for a new PE. On warfarin. Currently, on heparin drip. Will transition to Lovenox and continue to treat the patient's pneumonia and UTI with meropenem. Will deescalate as needed. The patient has been discussed with attending doctor, Dr. Moya. My preceptor for this patient encounter was Paul Moya MD. The preceptor was physically present in the building during the encounter and was fully available. As needed, all aspects of the patient interview, examination, medical decision making process, and medical care plan development were reviewed and approved by the preceptor. The preceptor is aware and concurs with the plan as stated in the body of this note and will attest to such by his/her cosignature.
[2017-02-04] MEDS: HEPARIN DRIP 25,000 UNITS in APPROPRIATE DILUENT 1 EA IV SCH (17:08)
--- NOTE | 2017-02-04 17:30 | IPN ---
DATE: 02/04/2017 I was asked by Dr. Moya of hospitalist service to make medical oncology recommendations. Lizzy is now admitted with new pulmonary embolism after developing acute shortness of breath and weakness at home. She is an 81-year-old woman with history of chronic lymphocytic leukemia (CLL) diagnosed in 2005, presenting then with extensive bulky stage III-IV disease. She has undergone multiple lines of treatment with partial response to each, most recently ibrutinib, an oral targeted therapy. She has been off therapy since October. She was admitted several weeks ago with abdominal discomfort, found to have progressed bulky adenopathy in the chest, abdomen, pelvis, retroperitoneum. Biopsy of one of most of rapidly evolving areas of adenopathy, the right axilla, was negative for evidence of diffuse large B-cell lymphoma quelling the concern for a Menard's transformation. She has, however, not undergone PET CT to look for differential standardized uptake value (SUV). Today Lizzy is lying in bed. Her is present. She reports some continuing discomfort in her abdomen because of her adenopathy. This is non-acute and consistent with her prior discomfort. She is on a heparin drip. The plan is to transfer her to low molecular weight heparin, as her pulmonary embolism occurred while on warfarin. Lizzy is scheduled to followup at outpatient clinic this week. She asked whether she should start ibrutinib again now. I recommended she be transferred to the new anticoagulation plan before we restart any medication. In terms of next line of cancer treatment for her, restarting ibrutinib is a reasonable approach, given she had multiple interruptions in the last year and has not had a steady state of exposure to the drug. The next consideration could be a PET CT to establish a differential and hypermetabolic uptake, which might indicate another site suspicious for diffuse large B-cell lymphoma; however, if there is uniform moderate uptake on PET, there would be no reason to further pursue this diagnosis. Thirdly, additional lines of treatment could be pursued. These would be less likely to provide a good response. Lizzy's best of treatment responses have been to chemotherapy. At present, her Eastern Cooperative Oncology Group (ECOG) performance status precludes chemotherapy. IMPRESSION: Lizzy Bray is an 81-year-old woman with advanced chronic lymphocytic leukemia (CLL) diagnosed 11 years ago with advanced disease, poor prognostic indicators, now with progressed disease overall, admitted with new shortness of breath, found to have a small right lower lobe pulmonary embolus as well as residual right lower lobe pneumonia versus atelectasis and extensive adenopathy and splenomegaly. Because of frequent infections over the last year, admissions for both cardiorespiratory and infectious complications, she has been off her ibrutinib as much as on and has not had good exposure to the medication. I am not advocating that this be restarted on this admission, but that would be the next step as an outpatient. PLAN 1. Continue current management. 2. Rapid followup in medical oncology clinic on discharge with Dr. Lee,
[2017-02-05] MEDS: LEVOTHYROXINE 0.088 MG TAB (88 MCG) PO SCH (05:38)
[2017-02-05] MEDS: MEROPENEM INJ 1 GM in D5W MINI-BAG PLUS 100 ML IV SCH (05:39)
--- NOTE | 2017-02-05 05:44 | IPN ---
DATE: 02/04/2017 Time patient was seen was this morning at 10. Patient has been seen and examined at bedside. No acute event overnight. Patient has continued to be on a heparin drip. However, she is not feeling any better, feeling about the same. Denies any chest pain, however. Denies any abdominal pains, nausea, vomiting, diarrhea or constipation. Denies any other current new complaints. Patient did have her Light removed this morning and will have a voiding trial for that <<1:01>> . Otherwise, patient will need Light again. PHYSICAL EXAMINATION: Vital signs: Temperature 97.5, pulse 87, respiration 19, blood pressure 125/69, oxygen was saturating 96% on 2 liters of nasal cannula. General: Patient is a cachectic-looking elderly female, who was alert, awake, oriented times three however, with head elevated at 30 degrees. HEENT: Normocephalic, atraumatic. Extraocular motor intact. Mucosa moist. Neck: Supple. No neck lymphadenopathy. Cardiovascular: Irregularly, irregular. DICTATION ENDED......................................... My preceptor for this patient encounter was Paul Moya MD. The preceptor was physically present in the building during the encounter and was fully available. As needed, all aspects of the patient interview, examination, medical decision making process, and medical care plan development were reviewed and approved by the preceptor. The preceptor is aware and concurs with the plan as stated in the body of this note and will attest to such by his/her co-signature.
[2017-02-05 06:00] VITALS: BP 127/71
[2017-02-05 06:26] LABS: ANION GAP 11 MEQ/L (8-16); BLOOD UREA NITROGEN 10 MG/DL (7-18); CALCIUM LEVEL 8.8 MG/DL (8.8-10.2); CARBON DIOXIDE LEVEL 25 MEQ/L (21-32); CHLORIDE LEVEL 106 MEQ/L (98-107); CREATININE FOR GFR 0.95 MG/DL (0.55-1.02); GLOMERULAR FILTRATION RATE > 60.0 (>32); GLUCOSE, FASTING 96 MG/DL (83-110); MAGNESIUM LEVEL 2.1 MG/DL (1.8-2.4); POTASSIUM SERUM 3.6 MEQ/L (3.5-5.1); SODIUM LEVEL 142 MEQ/L (136-145)
[2017-02-05 06:35] LABS: INR 1.42
[2017-02-05 06:40] LABS: DIFF SLIDE NUMBER 58; MEAN CORPUSCULAR HGB CONC 31.2 g/dl (32.0-36.5); MEAN CORPUSCULAR VOLUME 86.5 fl (80.0-96.0); PLATELET COUNT, AUTOMATED 174 k/mm3 (150-450); RED CELL DISTRIBUTION WIDTH 16.3 % (11.5-14.5)
[2017-02-05 06:43] LABS: WHITE BLOOD COUNT 29.9 K/mm3 (4.0-10.0)
[2017-02-05 08:02] LABS: EOSINOPHILS 1 % (0-5)
[2017-02-05 08:08] LABS: ANISOCYTOSIS 1+; HYPOCHROMASIA 1+
[2017-02-05 08:45] LABS: SMUDGE CELLS 2+
--- NOTE | 2017-02-05 09:59 | CR ---
DATE OF CONSULTATION: 02/04/2017 REASON FOR CONSULTATION: Leukocytosis. HISTORY OF PRESENT ILLNESS: The patient is an 81-year-old female who has had a history of chronic lymphocytic leukemia (CLL) that she has been battling for about 10 years. She came in to the emergency room yesterday after having a fullness in her Light catheter. She called her home care nurse who came and evaluated her and did not feel that there was anything wrong with the Light; however, on exam she did hear some abnormal sounds in the right lower lobe of her lung. Therefore, she recommended that she be brought to the emergency room. In the ER, she had a CT scan which showed new pulmonary embolism (PEs) in the right lower lobe while being therapeutic on her Coumadin, as well as, a possible urinary tract infection (UTI). However, due to the leukocytosis and a contracted gallbladder on CT scan and the fact that she had been recently having some appetite changes and dry heaves, they asked me to evaluate for possible cholecystitis. Currently, the patient denies any nausea, vomiting. No diarrhea or constipation. She has not been getting any of her CLL chemotherapy since the end of October. Meds were held for her to have a knee surgery and she has not been restarted on them since then. She was just in the hospital for 10 days and released on 01/28/2017. During that time, she had a lymph node biopsy done in her axilla that came back positive for CLL as well. CT scan showed extensive adenopathy, both of the mediastinum and in the abdomen. CAT scan of the abdomen also showed a dilated common bile duct and a contracted gallbladder with enhancing wall. She denies any fever, sweats or chills. She has lost her appetite in the past week. She has only been drinking Ensure. She was dry heaving, but since admission she has been tolerating liquids again without any complications. PAST MEDICAL HISTORY: 1. Chronic lymphocytic leukemia. 2. Pulmonary embolism. 3. Hypothyroidism. PAST SURGICAL HISTORY 1. Right knee surgery. 2. Bilateral cataracts. 3. Appendectomy. 4. Hysterectomy. FAMILY HISTORY: Noncontributory. SOCIAL HISTORY: Denies drug, alcohol or tobacco abuse. ALLERGIES: - DOXYCYCLINE - MOXIFLOXACIN - PENICILLIN - RITUXIMAB REVIEW OF SYSTEMS: Pertinent positives as stated in history of present illness (HPI). PHYSICAL EXAMINATION: General: Alert and oriented times three. No acute stress. Vitals: Temperature 97.5, pulse 87, respirations 19, blood pressure 125/69, pulse oximetry 96% on 2 liters nasal cannula. HEENT: Pupils equally round and react to light and accommodation. Heart: S1, S2, regular rate and rhythm. Lungs: Clear to auscultation bilaterally with decreased breath sounds in the right base. Abdomen: Soft, nontender, nondistended. Bowel sounds positive. Extremities: No clubbing, cyanosis or edema. LABORATORIES: White count on admission 36.2 down to 28.4, hemoglobin 8.1, platelets 156, total bilirubin 0.4, AST 19, ALT 21, alkaline phosphatase 74. IMAGING STUDIES: CT of abdomen and pelvis shows abnormal gallbladder that is contracted but with an enhancing wall. Ultrasound was then completed which shows hepatomegaly, massively enlarged abdominal lymph nodes with the largest measuring up to 12 cm, a right renal cyst, trace amount of free fluid, nonvisualization of gallbladder. ASSESSMENT/PLAN: The patient is an 81-year-old female with extensive lymphadenopathy due to her chronic lymphocytic leukemia. Gallbladder is contracted on CAT scan; however, her symptoms are not typical for gallbladder disease. She also does not have any pain in the right upper quadrant. However, I also explained to the patient that she would not be a very good candidate for surgery due to the extensive lymphadenopathy as well as the hepatomegaly and pulmonary embolisms. It would be very difficult to stop her Coumadin to make her therapeutic for surgery anyways, especially with her having PEs while being therapeutic on her Coumadin as it is. Therefore, if she were to continue to have symptoms and possibly related to the gallbladder, she may be better suited with a cholecystostomy tube if needed. However, again, her liver function tests (LFTs) are normal and I do not feel that this is related to her gallbladder at this time. Her symptoms are likely related to her right lower lobe lung disease as well as possibly this UTI. I will continue to follow the patient while she is in the hospital in case anything changes. Thank you for the consult.
[2017-02-05] MEDS: VITAMIN D 1,000 INTERNATIONAL UNITS TABLET PO SCH (10:01)
[2017-02-05] MEDS: MAGNESIUM OXIDE 400 MG TAB (MAG-OX) PO SCH (10:02)
[2017-02-05] MEDS: TAMSULOSIN 0.4 MG CAP PO SCH (10:02)
[2017-02-05] MEDS: MULTIVITAMINS/MINERALS THERAP 1 TAB PO SCH (10:02)
[2017-02-05] MEDS: PANTOPRAZOLE 40MG TAB (PROTONIX) PO SCH (10:02)
[2017-02-05] MEDS: ASCORBIC ACID 500 MG TAB PO SCH (10:02)
[2017-02-05] MEDS: clonazePAM 0.5 MG TAB PO SCH (12:06)
[2017-02-05] MEDS ORDERED: LevoFLOXacin IV 750 MG in APPROPRIATE DILUENT 1 EA IV SCH (13:00)
[2017-02-05] MEDS ORDERED: ENOXAPARIN 80 MG/0.8 ML SYRINGE (J1650) SC ONE (13:00)
[2017-02-05 14:00] VITALS: BP 121/69
--- NOTE | 2017-02-05 14:15 | IPN ---
DATE: 02/05/2017 Time patient was seen was this morning at 8:15. The patient has been seen and examined at bedside. No acute events overnight. The patient was somewhat tearful and anxious this morning due to she believes her prognosis is poor. I have tried to comfort her and told her that she is not in any immediate risk due to she is already on appropriate testing. She understood and felt a little bit better. I have agreed to start the patient on something for her anxiety. Otherwise, she denies any fever or chills, chest pain, trouble breathing, abdominal pain, nausea, vomiting, diarrhea or constipation, any problem with urination. PHYSICAL EXAMINATION: Vital signs: Temperature 97, pulse 90, respiration 19, blood pressure 127/71, oxygen saturating at 92% on 2 liters of nasal cannula. General: The patient is a tearful-looking elderly female, who is alert, awake, oriented times three. Does not appear to be in distress. Lying comfortably in bed with head elevated at 45 degree angle. HEENT: Normocephalic, atraumatic. Extraocular motor intact. Mucosa moist. NECK: Supple. The patient does have significant supraclavicular and axillary lymphadenopathy. CARDIOVASCULAR: Regular rate and rhythm. S1, S2. No murmurs, rubs, or gallops. LUNGS: Diffuse rhonchi bilaterally. ABDOMEN: Positive bowel sounds. Tender to palpation in the epigastric and right upper quadrant. Otherwise, no peritoneal signs. No ecchymosis. EXTREMITIES: No edema, clubbing, or cyanosis. SKIN: Warm and dry. NEUROLOGIC: Cranial nerves II-XII intact. No focal neurologic deficit. LABORATORIES: WBC 29.9, hemoglobin 8.1, hematocrit 28.1, with a platelet count of 174 and MCV of 86.5. Sodium 142, potassium 3.6, chloride 106, bicarbonate 25, BUN 10, creatinine 0.95, GFR greater than 60, fasting glucose of 96, calcium 8.8, magnesium 2.1. PT 17.5, INR 1.42, PTT was 59.2. Fecal occult blood has been negative. The patient's urine culture was positive for Enterococcus faecalis. There is no new imaging. ASSESSMENT AND PLAN: An 81-year-old female with past medical history of chronic lymphocytic leukemia (CLL), history of pulmonary embolism (PE), hypothyroidism, who presented with: 1. Shortness of breath, likely secondary to new PE, superimposed on old PE. Previously was on therapeutic Coumadin. The patient opted to switch to Lovenox. Heparin drip was discontinued this morning. Dr. Aden, who saw the patient last night, who is the patient's director maternal child/oncologist, agrees with the plan and we will continue to monitor the patient. 2. Recent anxiety and possible depression. The patient became tearful after knowing that her prognosis is poor. We will start the patient on clonazepam and continue to monitor the patient. 3. Possible pneumonia and urinary tract infection (UTI). The patient was initially on meropenem. We will switch to levofloxacin today. CT angio shows possible infiltrate at the right side. In addition, the patient's urine culture and urinalysis were positive. Culture came back and shows Enterococcus faecalis. We will continue to monitor the patient. 4. Ruled out acute cholecystitis due to abdominal pain. Dr. Jordan from general surgery was consulted. He believed that the abdominal pain and the CT findings likely does not represent cholecystitis. Pain was likely due to lymphadenopathy. We will continue to monitor. Continue supportive management. 5. Increased lymphadenopathy at multiple sites, likely progression of the patient's CLL. The patient received chemotherapy up until November and it was stopped due to recurrent infections. The patient will followup with Dr. Lee as an outpatient regarding the possibility for restarting the chemotherapy. The name of the chemotherapy is Ibrutinib. 6. Deep venous thrombosis (DVT) prophylaxis. On therapeutic Lovenox. DISPOSITION: The patient has been admitted for a new PE. On warfarin. We have stopped heparin drip today and switched the patient to Lovenox. The patient also has been treated for pneumonia and UTI with levofloxacin. Meropenem has been stopped today. We will continue to monitor. The patient has been discussed with attending doctor, Dr. Ivan. My preceptor for this patient encounter was Dr. Ivan. The preceptor was physically present in the building during the encounter and was fully available. As needed, all aspects of the patient interview, examination, medical decision making process, and medical care plan development were reviewed and approved by the preceptor. The preceptor is aware and concurs with the plan as stated in the body of this note and will attest to such by his/her cosignature.
[2017-02-05] MEDS: ENOXAPARIN 80 MG/0.8 ML SYRINGE (J1650) SC SCH (20:52)
[2017-02-05] MEDS: NYSTATIN 100,000 UNITS/GM TOPICAL PWD 15 GM TOP SCH (20:53)
[2017-02-05 22:00] VITALS: BP 123/61
[2017-02-06] MEDS: LEVOTHYROXINE 0.088 MG TAB (88 MCG) PO SCH (05:34)
[2017-02-06 06:00] VITALS: BP 119/59
[2017-02-06 07:11] LABS: INR 1.16
[2017-02-06 07:23] LABS: DIFF SLIDE NUMBER 36; MEAN CORPUSCULAR HEMOGLOBIN 27.3 pg (27.0-33.0); MEAN CORPUSCULAR HGB CONC 31.7 g/dl (32.0-36.5); MEAN CORPUSCULAR VOLUME 86.3 fl (80.0-96.0); PLATELET COUNT, AUTOMATED 163 k/mm3 (150-450); RED CELL DISTRIBUTION WIDTH 16.6 % (11.5-14.5)
[2017-02-06 07:25] LABS: CALCIUM LEVEL 8.6 MG/DL (8.8-10.2); CREATININE FOR GFR 0.96 MG/DL (0.55-1.02); GLOMERULAR FILTRATION RATE 59.5 (>32); MAGNESIUM LEVEL 1.9 MG/DL (1.8-2.4); POTASSIUM SERUM 3.9 MEQ/L (3.5-5.1)
[2017-02-06 08:03] LABS: WHITE BLOOD COUNT 28.8 K/mm3 (4.0-10.0)
[2017-02-06 08:08] LABS: BANDS 2 % (< 11); EOSINOPHILS 1 % (0-5); SMUDGE CELLS 1+
[2017-02-06 08:09] LABS: ANISOCYTOSIS 2+; HYPOCHROMASIA 1+; MICROCYTOSIS 1+; POIKILOCYTOSIS 1+
[2017-02-06] MEDS: PANTOPRAZOLE 40MG TAB (PROTONIX) PO SCH (10:16)
[2017-02-06] MEDS: MULTIVITAMINS/MINERALS THERAP 1 TAB PO SCH (10:16)
[2017-02-06] MEDS: VITAMIN D 1,000 INTERNATIONAL UNITS TABLET PO SCH (10:17)
[2017-02-06] MEDS: ASCORBIC ACID 500 MG TAB PO SCH (10:17)
[2017-02-06] MEDS: clonazePAM 0.5 MG TAB PO SCH (10:17)
[2017-02-06] MEDS: TAMSULOSIN 0.4 MG CAP PO SCH (10:17)
[2017-02-06] MEDS: MAGNESIUM OXIDE 400 MG TAB (MAG-OX) PO SCH (10:18)
[2017-02-06] MEDS: NYSTATIN 100,000 UNITS/GM TOPICAL PWD 15 GM TOP SCH ×2 (10:18→21:24)
[2017-02-06] MEDS: ENOXAPARIN 80 MG/0.8 ML SYRINGE (J1650) SC SCH ×2 (10:18→21:24)
[2017-02-06] MEDS ORDERED: LOVE0.6I2 SC (11:18)
[2017-02-06] MEDS: guaiFENesin ER 600 MG TAB PO SCH ×2 (13:13→21:24)
--- NOTE | 2017-02-06 13:42 | IPN ---
DATE: 02/06/2017 Patient is seen and examined at bedside. No acute event overnight. Patient admits that her anxiety has improved. Admits to improved breathing as well. Denies any fever or chills, any chest pain, trouble breathing, abdominal pain, nausea, vomiting, abdominal pain, diarrhea or constipation. In addition, Dr. Lao spoke with patient regarding making patient DO NOT RESUSCITATE/DO NOT INTUBATE. However, patient at this point would like DO NOT RESUSCITATE and does not want the DO NOT INTUBATE and we hae planned to approach patient again. Otherwise patient denies any other current new complaints. PHYSICAL EXAMINATION: Vital signs: Temperature 97.8, pulse 95, respiration 90, blood pressure 190/59, oxygen saturation 92% on 2 liters nasal canal. General: Patient is a pleasant, elderly female who was alert, awake, oriented times three. Does not appear to be in distress, lying comfortably in bed with head elevated at 30 degrees. HEENT: Normocephalic, atraumatic. Extraocular motor intact. Pupils moist. Neck supple. Patient does have a supraclavicular lymph node that is enlarged roughly 3-4 cm. Patient also had enlarged axilla lymph nodes. Cardiovascular: Regular rate and rhythm, normal S1, S2. No murmurs, rubs or gallops. Lungs: Clear to auscultation bilaterally. Abdomen: Positive bowel sounds, soft, nontender, there is no peritoneal signs. No ecchymosis. Extremities: No edema, clubbing or cyanosis. Skin: Warm and dry. Neuro: Cranial nerves II through XII intact. No focal neurological deficit. LABS: WBC 28.8, hemoglobin 8.1, hematocrit 25.6, platelet count of 163. MCV of 86.3. Sodium 137, potassium 3.9, chloride 103, bicarbonate 25, BUN 10, creatinine 0.96 , glomerular filtration rate 59.5%. Calcium 8.8, magnesium 1.9. PT 14.9, INR 1.16. No new cultures. No new imaging. ASSESSMENT AND PLAN: 81-year-old female with past medical history of chronic lymphocytic leukemia, history of pulmonary embolism, was on warfarin, hypothyroidism, presented with: 1. Shortness of breath likely secondary to a new pulmonary embolism superimposed on old pulmonary embolism, previously was on therapeutic Coumadin, however, patient has opted to switch to Lovenox after heparin drip has been discontinued yesterday. Dr. Lee, patient's hematology/oncology also saw patient and agrees to see patient outpatient and discussing about continuation of chemotherapy. 2. Recent anxiety and possible depression. Patient was tearful yesterday after knowing her prognosis was poor. Therefore, patient was started on clonazepam and she has improved this morning. Continue to monitor. 3. Possible pneumonia with urinary tract infection (UTI). Continue patient on levofloxacin and continue to monitor. Urine culture did come back and shows enterococcus faecalis. 4. Rule out acute cholecystitis due to abdominal pain. Dr. Jordan from general surgery was consulted. Does not believe this is acute cholecystitis but rather lymphadenopathy. Continue to monitor. 5. Increased lymphadenopathy at multiple sites with progression of chronic lymphocytic leukemia, stable. Continue to monitor. Will followup with Dr. Lee as outpatient. 6. Deep venous thrombosis (DVT) prophylaxis, on therapeutic Lovenox. DISPOSITION: Patient has been started on Lovenox yesterday and has been switched to levofloxacin, was initially on meropenem for her possible pneumonia and urinary tract infection. Patient will likely need to discuss with Dr. Lee as outpatient regarding possibility of restarting chemotherapy. At this point, patient does have a poor prognosis due to chronic lymphocytic leukemia was diagnosed 10 months ago and at that point, the prognosis was 12 months. Therefore, patient is a candidate for hospice. Patient has been discussed with attending doctor, Dr. Lao. My preceptor for this patient encounter was Dr. Imtiaz Lao. The preceptor was physically present in the building during the encounter and was fully available. As needed, all aspects of the patient interview, examination, medical decision making process, and medical care plan development were reviewed and approved by the preceptor. The preceptor is aware and concurs with the plan as stated in the body of this note and will attest to such by his/her cosignature. Attending note: patient seen and examined independently. All aspects of medical treatment discussed with resident and agree with above course of action. MTDD
[2017-02-06 14:00] VITALS: BP 125/60
[2017-02-06 22:00] VITALS: BP 115/55
[2017-02-07] MEDS: LEVOTHYROXINE 0.088 MG TAB (88 MCG) PO SCH (05:34)
[2017-02-07 06:00] VITALS: BP 120/61
[2017-02-07 07:00] LABS: INR 1.14
[2017-02-07 07:05] LABS: CREATININE FOR GFR 0.96 MG/DL (0.55-1.02); GLOMERULAR FILTRATION RATE 59.5 (>32); MAGNESIUM LEVEL 2.1 MG/DL (1.8-2.4); POTASSIUM SERUM 4.2 MEQ/L (3.5-5.1)
[2017-02-07 07:38] LABS: DIFF SLIDE NUMBER 29; MEAN CORPUSCULAR HEMOGLOBIN 26.7 pg (27.0-33.0); MEAN CORPUSCULAR HGB CONC 31.3 g/dl (32.0-36.5); MEAN CORPUSCULAR VOLUME 85.5 fl (80.0-96.0); PLATELET COUNT, AUTOMATED 159 k/mm3 (150-450); RED CELL DISTRIBUTION WIDTH 16.7 % (11.5-14.5)
[2017-02-07 08:14] LABS: WHITE BLOOD COUNT 25.2 K/mm3 (4.0-10.0)
[2017-02-07] MEDS ORDERED: FUROSEMIDE 40 MG TAB PO ONE (09:00)
[2017-02-07] MEDS ORDERED: SCOPOLAMINE 1.5 MG TRANSDERMAL TD PRN (09:30)
[2017-02-07 09:42] LABS: BANDS 6 % (< 11); EOSINOPHILS 1 % (0-5); SMUDGE CELLS 2+
[2017-02-07 09:47] LABS: ANISOCYTOSIS 2+; HYPOCHROMASIA 1+
[2017-02-07] MEDS: MAGNESIUM OXIDE 400 MG TAB (MAG-OX) PO SCH (09:51)
[2017-02-07] MEDS: ASCORBIC ACID 500 MG TAB PO SCH (09:51)
[2017-02-07] MEDS: guaiFENesin ER 600 MG TAB PO SCH ×2 (09:51→20:08)
[2017-02-07] MEDS: TAMSULOSIN 0.4 MG CAP PO SCH (09:51)
[2017-02-07] MEDS: PANTOPRAZOLE 40MG TAB (PROTONIX) PO SCH (09:51)
[2017-02-07] MEDS: NYSTATIN 100,000 UNITS/GM TOPICAL PWD 15 GM TOP SCH ×2 (09:52→20:09)
--- NOTE | 2017-02-07 15:23 | IPN ---
DATE: 02/06/2017 Dr. Lao asked me to stop by and see Lizzy again today. I clarified with her my recommendation that we not start her ibrutinib now but instead wait until she is better outpatient, obtain a PET scan to assess for any super hypermetabolic foci, particularly in the abdomen, which is where she has symptoms, and if that is negative for discordant elevated SUVs she should start back on her ibrutinib. If however, there is a super hypermetabolic focus, I would recommend that it biopsy as Menard's transformation to a diffuse large B-cell lymphoma, which can occur in focal areas in a patient with longstanding high-risk chronic lymphocytic leukemia, such as Lizzy has, needs to be treated as a diffuse large B-cell lymphoma and not as a CLL. I also spoke with Lizzy about her life expectancy, her overall prognosis, and advanced directives. She acknowledged Dr. Lao had spoken to her about do not resuscitate. She says she is not ready. I asked her to think of this as simply good housekeeping measure. She has very advanced CLL for over 10 years refractory to a few treatments, with a limited number of options remaining. She is fairly symptomatic and has had minimal response so far from several treatments. At the time of diagnosis, she had poor prognostic indicators, including CD38 and unfortunately she has already outlived her life expectancy at the time of diagnosis. She said she will think more seriously about the do not resuscitate order. Finally, Lizzy has been having some difficulty voiding though the nurse assured me there was not a large postvoid residual today. CT findings from February 03 shows splenomegaly, gallbladder wall enhancement, extensive retroperitoneal adenopathy , including small bowel mesenteric adenopathy. Notably, the renal kidneys are within normal limits and unchanged with no evidence of hydronephrosis. IMPRESSION Advanced CLL status post multiple lines of treatment. Most recently sporadically on ibrutinib. RECOMMENDATIONS 1. If Lizzy is a rehabilitatable in terms of her in terms of ambulation and is able to be discharged, then I would recommended she have early followup with us so we can arrange PET scan for assessment for any more aggressive lymphoma subtype. If it turns out that she cannot tolerate discharge outpatient, it may be reasonable for her to restart the ibrutinib. If she restarts the ibrutinib, we will be happy to follow her and make sure she has continuous medication prescription. This can be ordered and delivered for her outpatient but taken inpatient as it is not on hospital formulary. It is a standard current treatment for CLL and it would be appropriate to restart her on this if she is really not able to do any further physical therapy and is not able to leave the hospital because of abdominal pain. 2. I did today talk to Lizzy phillip limited life expectancy and somewhat low expectations for how well she will respond to continued therapy, but given the benignness of ibrutinib and the fact that it is so extremely well tolerated by most patients, returning her to this therapy ultimately is a reasonable course if there are no other options and she wishes to be treated. I will continue to follow intermittently. MICHELLE
--- NOTE | 2017-02-07 16:55 | IPN ---
DATE: 02/07/2017 Time patient was seen was this morning at 9:10. Patient has been seen and examined at bedside. No acute event overnight. Patient is feeling better today. Denies any chest pain or trouble breathing. She was able to ambulate yesterday. Patient does complain of some constipation with last bowel movement about three days ago. In addition, patient had a discussion with Dr. Lao and decided that she would like COMFORT MEASURES ONLY due to her poor prognosis and would like hospice consultation. Otherwise, patient denies any other current new complaints. PHYSICAL EXAMINATION: VITAL SIGNS: Temperature 98.1, pulse 91, respirations 18, blood pressure 120/61, oxygen saturation 95% on two liters nasal canal. General: Patient is a pleasant, elderly female who was alert, awake and oriented times three, does not appear to be in distress, lying comfortably in bed with head elevated at 30 degrees. HEENT: Normocephalic, atraumatic. Extraocular motor intact. Mucosa moist. NECK: Supple. Patient does have a roughly 4 cm lymphadenopathy supraclavicular with right side greater than the left side. Patient also has axilla lymph nodes enlarged as well. CARDIOVASCULAR: Regular rate and rhythm, normal S1, S2. A 2/6 systolic heart murmur. LUNGS: Slight wheezing bilaterally and also slight rhonchi bilaterally. ABDOMEN: Positive bowel sounds, soft, nontender, nondistended. No peritoneal signs. No ecchymosis. EXTREMITIES: 1+ pedal edema. Otherwise, no clubbing or cyanosis. SKIN: Warm and dry. NEUROLOGIC: Cranial nerves II-XII intact. No focal neurological deficit. LABORATORY DATA: WBC 25.2, hemoglobin 8.1, hematocrit 26, platelet count of 159 with MCV of 85.5. Sodium 136, potassium 4.2, chloride 103, bicarbonate 25, BUN 10, creatinine 0.96 , GFR 59.5%, glucose 94, calcium 9, magnesium 2.1. Patient's PT this morning was 14.7, INR 1.14. There are no new cultures. Patient's fecal occult blood was negative. No new imaging. ASSESSMENT AND PLAN: An 81-year-old female with a past medical history of chronic lymphocytic leukemia (CLL), history of pulmonary embolism (PE) was on warfarin, hypothyroidism, who presented with: 1. Shortness of breath, likely secondary to a new PE superimposed on old PE. Previously on therapeutic Coumadin. However, patient opted to switch to Lovenox after heparin drip has been stopped. Dr. Lee has visited the patient and recommended patient to see her outpatient and advised her that her prognosis is rather poor due to her chronic lymphocytic leukemia was diagnosed roughly 10 months ago and back then her prognosis was about 12 months. Today, Dr. Lao spoke to patient and patient has agreed that she should be made COMFORT MEASURES ONLY with hospice consultation. 2. Recent anxiety and possible depression. Continue patient on clonazepam. Patient did improve significantly this morning. 3. Possible pneumonia and urinary tract infection. Patient was continued on levofloxacin. Urine culture did come back and shows Enterococcus faecalis. 4. Acute cholecystitis has been ruled out. Dr. Jordan was initially consulted and does not believe this is acute cholecystitis but rather lymphadenopathy. 5. Increased lymphadenopathy at multiple sites including axilla and supraclavicular sites, secondary to her chronic lymphocytic leukemia. Patient will followup with Dr. Lee outpatient who is her hematology/oncologist. 6. Deep venous thrombosis (DVT) prophylaxis, with therapeutic Lovenox. DISPOSITION: Patient has opted for COMFORT MEASURES ONLY today and hospice has been consulted as well due to her life expectancy is likely less than six months. Patient has been discussed with attending doctor, Dr. Lao. My preceptor for this patient encounter was Dr. Imtiaz Lao. The preceptor was physically present in the building during the encounter and was fully available. As needed, all aspects of the patient interview, examination, medical decision making process, and medical care plan development were reviewed and approved by the preceptor. The preceptor is aware and concurs with the plan as stated in the body of this note and will attest to such by his/her cosignature. Attending note: patient seen and examined independently. All aspects of medical treatment discussed with resident and agree with above course of action MTDD
[2017-02-07] MEDS: LORazepam 0.5 MG TAB PO PRN (20:08)
[2017-02-08] MEDS: LEVOTHYROXINE 0.088 MG TAB (88 MCG) PO SCH (05:44)
[2017-02-08] MEDS: MAGNESIUM OXIDE 400 MG TAB (MAG-OX) PO SCH (08:16)
[2017-02-08] MEDS: TAMSULOSIN 0.4 MG CAP PO SCH (08:17)
[2017-02-08] MEDS: NYSTATIN 100,000 UNITS/GM TOPICAL PWD 15 GM TOP SCH ×2 (08:17→20:16)
[2017-02-08] MEDS: guaiFENesin ER 600 MG TAB PO SCH ×2 (08:17→20:16)
[2017-02-08] MEDS: ASCORBIC ACID 500 MG TAB PO SCH (08:17)
[2017-02-08] MEDS: PANTOPRAZOLE 40MG TAB (PROTONIX) PO SCH (08:17)
--- NOTE | 2017-02-08 11:18 | IPN ---
DATE: 02/08/2017 81-year-old female seen resting comfortably in bed. Her is present and we had a pleasant discussion this morning. Currently they are waiting for hospice to consult, and she continues on comfort measures only orders. She denies any shortness of breath, chest pain or discomfort and appears to be resting comfortably. OBJECTIVE: Again the patient is resting comfortably. She is alert. She does not appear to be labored in her breathing. Has complained of no chest pain. Laboratories have been discontinued, as well as vital signs, and she does have an order for supplemental oxygen for comfort. IMPRESSION: 81-year-old female with past medical history consisting of chronic lymphocytic leukemia, recurrent pulmonary embolism, hypothyroidism. PROBLEM LIST: 1. CLL with advanced disease. 2. Recurrent pulmonary emboli. 3. Anxiety and depression with no audiovisual hallucinations, no suicidal ideation. 4. Questionable underlying pneumonia. 5. Questionable underlying urinary tract infection. 6. Abdominal pain with acute cholecystitis ruled out. 7. Increased lymphadenopathy in multiple sites, including axilla and supraclavicular regions. DISPOSITION: We have had lengthy discussions with the patient, as well as her , who has elected to forego any further treatment at this point due to her advanced disease. I have discussed this case as well with Dr. Lee, who is agreeable that the patient is a candidate for hospice at this point. Yesterday, we update her Medical Orders for Life Sustaining Treatment (MOLST) form to reflect DO NOT RESUSCITATE, DO NOT INTUBATE and comfort measures only status. We did make changes in her medication regimen and a hospice consult has been placed. She will continue on [employer] status, and we anticipate hospice to see her later today.
[2017-02-08] MEDS: LORazepam 0.5 MG TAB PO PRN ×2 (18:18→20:16)
[2017-02-08] MEDS: MORPHINE 10MG/0.5ML ORAL CONCENTRATE SOLUTION U/D SL PRN (20:49)
[2017-02-09] MEDS: LORazepam 0.5 MG TAB PO PRN ×3 (06:13→21:43)
[2017-02-09] MEDS: LEVOTHYROXINE 0.088 MG TAB (88 MCG) PO SCH (06:13)
[2017-02-09] MEDS: TAMSULOSIN 0.4 MG CAP PO SCH (09:55)
[2017-02-09] MEDS: guaiFENesin ER 600 MG TAB PO SCH ×2 (09:55→21:43)
[2017-02-09] MEDS: ASCORBIC ACID 500 MG TAB PO SCH (09:55)
[2017-02-09] MEDS: MAGNESIUM OXIDE 400 MG TAB (MAG-OX) PO SCH (09:55)
[2017-02-09] MEDS: NYSTATIN 100,000 UNITS/GM TOPICAL PWD 15 GM TOP SCH ×2 (09:55→21:43)
[2017-02-09] MEDS: PANTOPRAZOLE 40MG TAB (PROTONIX) PO SCH (09:55)
--- NOTE | 2017-02-09 11:35 | IPN ---
DATE: 02/09/2017 81-year-old female resting comfortably in bed. She has been [facility] a few days ago waiting for hospice consult and determination regarding discharge to Hospice House versus discharge to home with assistance. She appears to be resting comfortably without any complaints. There has been no issues reported overnight. OBJECTIVE: She does not appear to be respiratory distress, is sleeping. Chest movement with inspiratory and expiratory phase appears to be equal and nonlabored. No labs were ordered due to [facility] status. PROBLEM LIST: 1. CLL with advanced disease. 2. Recurrent pulmonary emboli. 3. Anxiety and depression with no audiovisual hallucinations or suicidal ideation. 4. Questionable underlying pneumonia on admission. 5. Underlying urinary tract infection on admission. 6. Abdominal pain with acute cholecystitis ruled out. 7. Increased lymphadenopathy in multiple sites including axilla and supraclavicular regions. DISPOSITION: As discussed previously, we have had lengthy discussions with the patient and the patient's family members, and Dr. Lee. Her Medical Order for Life-Sustaining Treatment (MOLST) from has been updated to reflect DO NOT RESUSCITATE, DO NOT INTUBATE, and COMFORT MEASURES ONLY ([facility]). She does have [facility] orders in place, awaiting hospice evaluation and further determination whether she can be discharged home safely with assistance versus hospice house.
[2017-02-09] MEDS: MORPHINE 10MG/0.5ML ORAL CONCENTRATE SOLUTION U/D SL PRN (18:17)
[2017-02-10] MEDS: LORazepam 0.5 MG TAB PO PRN ×2 (05:55→15:30)
[2017-02-10] MEDS: LEVOTHYROXINE 0.088 MG TAB (88 MCG) PO SCH (05:55)
[2017-02-10] MEDS: MORPHINE 10MG/0.5ML ORAL CONCENTRATE SOLUTION U/D SL PRN ×4 (07:37→19:56)
[2017-02-10] MEDS: ASCORBIC ACID 500 MG TAB PO SCH (09:31)
[2017-02-10] MEDS: NYSTATIN 100,000 UNITS/GM TOPICAL PWD 15 GM TOP SCH ×2 (09:31→19:55)
[2017-02-10] MEDS: PANTOPRAZOLE 40MG TAB (PROTONIX) PO SCH (09:31)
[2017-02-10] MEDS: MAGNESIUM OXIDE 400 MG TAB (MAG-OX) PO SCH (09:31)
[2017-02-10] MEDS: TAMSULOSIN 0.4 MG CAP PO SCH (09:31)
[2017-02-10] MEDS: guaiFENesin ER 600 MG TAB PO SCH ×2 (09:31→19:55)
[2017-02-10] MEDS: ONDANSETRON 4 MG ORAL DISINTEGRATING TAB (S0181) PO PRN (17:12)
[2017-02-10] MEDS ORDERED: MORPHINE 10MG/0.5ML ORAL CONCENTRATE SOLUTION U/D SL ONE (21:00)
[2017-02-11] MEDS: LEVOTHYROXINE 0.088 MG TAB (88 MCG) PO SCH (06:03)
[2017-02-11] MEDS: MORPHINE 10MG/0.5ML ORAL CONCENTRATE SOLUTION U/D SL PRN ×2 (06:06→20:34)
[2017-02-11] MEDS: TAMSULOSIN 0.4 MG CAP PO SCH (08:50)
[2017-02-11] MEDS: PANTOPRAZOLE 40MG TAB (PROTONIX) PO SCH (08:50)
[2017-02-11] MEDS: guaiFENesin ER 600 MG TAB PO SCH ×2 (08:50→20:21)
[2017-02-11] MEDS: ASCORBIC ACID 500 MG TAB PO SCH (08:50)
[2017-02-11] MEDS: MAGNESIUM OXIDE 400 MG TAB (MAG-OX) PO SCH (08:50)
[2017-02-11] MEDS: NYSTATIN 100,000 UNITS/GM TOPICAL PWD 15 GM TOP SCH ×2 (08:51→20:21)
[2017-02-11] MEDS ORDERED: ATIV1TAB10 PO (10:25)
[2017-02-11] MEDS ORDERED: TRAN1.5D2 TD (10:25)
[2017-02-11] MEDS ORDERED: MORP1SOL SL (10:25)
[2017-02-11] MEDS ORDERED: SYNT88TA2 PO (10:25)
[2017-02-11] MEDS: ONDANSETRON 4 MG ORAL DISINTEGRATING TAB (S0181) PO PRN (21:39)
[2017-02-12] MEDS: MORPHINE 10MG/0.5ML ORAL CONCENTRATE SOLUTION U/D SL PRN (00:58)
[2017-02-12] MEDS: LEVOTHYROXINE 0.088 MG TAB (88 MCG) PO SCH (05:27)
[2017-02-12] MEDS: guaiFENesin ER 600 MG TAB PO SCH (09:00)
[2017-02-12] MEDS: PANTOPRAZOLE 40MG TAB (PROTONIX) PO SCH (09:00)
[2017-02-12] MEDS: MAGNESIUM OXIDE 400 MG TAB (MAG-OX) PO SCH (09:00)
[2017-02-12] MEDS: NYSTATIN 100,000 UNITS/GM TOPICAL PWD 15 GM TOP SCH (09:00)
[2017-02-12] MEDS: TAMSULOSIN 0.4 MG CAP PO SCH (09:00)
[2017-02-12] MEDS: ASCORBIC ACID 500 MG TAB PO SCH (09:00)
--- NOTE | 2017-02-12 17:28 | DSES ---
DATE OF ADMISSION: 02/03/2017 DATE OF DISCHARGE: 02/12/2017 DISCHARGE DIAGNOSIS: Chronic lymphocytic leukemia (CLL). SECONDARY DIAGNOSES: 1. Recurrent pulmonary embolism. 2. Anxiety. 3. Depression. 4. Pneumonia. 5. Urinary tract infection. CONSULTATIONS: The patient was seen by Dr. Radha Lee during her stay as well as Dr. Jose A Jordan. HOSPITAL COURSE: The patient was admitted on 02/03/2017. At that time, she was admitted for malfunctioning Light catheter. She was admitted to the medical/surgical service. She was seen by Dr. Radha Lee who agreed that her prognosis and life expectancy were quite poor. She has had chronic lymphocytic leukemia (CLL) for 10 years refractory to treatments. The patient did elect for COMFORT MEASURES ONLY with Dr. Lao. At this time, she is being discharged to hospice. DISPOSITION: The patient is being discharged to hospice house. Her activity and diet are as tolerated. MEDICATIONS AT THE TIME OF DISCHARGE: - Synthroid 0.88 mcg daily - Ativan 0.5 mg every two hours as needed for anxiety - morphine sulfate 2 mg sublingually every two hours as needed for severe pain - transdermal scopolamine patch 1.5 mg every three days as needed for excessive secretions - Tylenol 650 mg every eight hours Less than 30 minutes was spent organizing disposition.
== END 2017-02-12 12:04 | disposition hospice, inpatient (51) | DRG 175 ==
LOC: M ED 14:02 → M ED INP 17:46 → M PCU 22:51 → M MSPAV 02-04 20:20
PROVIDERS: ADMIT Hospitalist; ATTEND Internal Medicine
DX: I26.99 Other pulmonary embolism without acute cor pulmonale (principal); J18.9 Pneumonia, unspecified organism; N39.0 Urinary tract infection, site not specified; C91.10 Chronic lymphocytic leukemia of B-cell type not having achieved remission; F41.9 Anxiety disorder, unspecified; F32.9 Major depressive disorder, single episode, unspecified; Z51.5 Encounter for palliative care; Z79.899 Other long term (current) drug therapy; Z88.0 Allergy status to penicillin; Z88.8 Allergy status to other drugs, medicaments and biological substances; N18.3 Chronic kidney disease, stage 3 (moderate); Z79.01 Long term (current) use of anticoagulants